=== PATIENT | female | born 1965 | race Caucasian/White ===

== ENCOUNTER 2018-02-13 20:21 | Observation (INO) | payer SELFPAY ==
[2018-02-13] MEDS ORDERED: NA CHLORIDE 0.9% 500 ML ONE (21:37)
[2018-02-13] MEDS ORDERED: METHYLPREDNISOLONE 125 MG INJ ONE (21:37)
[2018-02-13] MEDS ORDERED: LEVALBUTEROL 1.25 MG/3 ML NEB ONE ×2 (21:37→23:52)
[2018-02-13] MEDS ORDERED: MAGNESIUM SULFATE 1 gm IVPB 1 GM/100 ML BAG IV ONE (21:38)
[2018-02-13] MEDS ORDERED: CEFTRIAXONE/SWI 1gm 1 GM/10 ML SYR ONE (21:38)
[2018-02-13] MEDS ORDERED: ONDANSETRON 4 MG/2 ML VIAL ONE (22:09)
--- NOTE | 2018-02-13 23:36 | ER ---
Nurse's Notes [facility] Name: Elizabeth Ny Age: 52 yrs Sex: Female : 1965 Arrival Date: 02/13/2018 Time: 20:26 Bed 17 Private MD: Diagnosis: COPD Exacerbation Presentation: 02/13 20:26 Presenting complaint: EMS states: "pt reported history of COPD, on arrival the pt was jd3 noticeably short of breath and audibly wheezing. She had given herself an albuterol treatment before we got there, but she was still at 84-85 on room air.". Transition of care: patient was not received from another setting of care. Onset of symptoms was February 13, 2018. Initial Sepsis Screen: Does the patient meet any 2 criteria? RR > 20 per min. HR > 90 bpm. Yes Does the patient have a suspected source of infection? No. Patient's initial sepsis screen is negative. Care prior to arrival: None. 20:26 Method Of Arrival: EMS: [facility] jd3 20:26 Acuity: CAROLYN 3 jd3 [employer]: 20:32 LMP N/A - Post-menopause jd3 Historical: - Allergies: 20:32 Codeine; jd3 - Home Meds: 20:32 ProAir HFA 90 mcg/actuation inhalation HFAA 1 puff as needed [Active]; Albuterol jd3 Nebulizer [Active]; Albuterol Inhl [Active]; - PMHx: 20:32 COPD; jd3 - PSHx: 20:32 Tubal ligation; jd3 - Immunization history:: Adult Immunizations up to date. - Social history:: Smoking status: Patient/guardian denies using tobacco, the patient reports quitting approximately 1 years ago. Screenin:36 Abuse screen: Denies threats or abuse. Nutritional screening: No deficits noted. jd3 Tuberculosis screening: No symptoms or risk factors identified. Fall Risk Gait- Normal/Bed Rest/Wheelchair (0 pts) Mental Status- Oriented to own ability (0 pts). Total Culver Fall Scale indicates No Risk (0-24 pts). Assessment: 20:34 General: Appears uncomfortable, Behavior is calm, cooperative, appropriate for age. jd3 Pain: Denies pain. Neuro: Level of Consciousness is awake, alert, obeys commands, Oriented to person, place, time, situation. Cardiovascular: Heart tones S1 S2 present Capillary refill < 3 seconds Patient's skin is warm and dry. Respiratory: Airway is patent Respiratory effort is labored, Respiratory pattern is tachypnea Breath sounds with wheezes bilaterally. GI: Abdomen is round Bowel sounds present X 4 quads. Abd is soft and non tender X 4 quads. Patient currently denies diarrhea, nausea, vomiting. : No signs and/or symptoms were reported regarding the genitourinary system. EENT: No signs and/or symptoms were reported regarding the EENT system. Derm: Skin is intact, Skin is dry, Skin is normal, Skin temperature is warm. Musculoskeletal: Circulation, motion, and sensation intact. Range of motion: intact in all extremities. 22:06 Reassessment: Patient appears in no apparent distress at this time. Patient and/or jd3 family updated on plan of care and expected duration. Pain level reassessed. Patient is alert, oriented x 3, equal unlabored respirations, skin warm/dry/pink. 22:54 Reassessment: Patient appears in no apparent distress at this time. Patient and/or jd3 family updated on plan of care and expected duration. Pain level reassessed. Patient is alert, oriented x 3, equal unlabored respirations, skin warm/dry/pink. Patient states symptoms have improved. 02/14 00:53 Reassessment: Patient appears in no apparent distress at this time. Patient and/or jd3 family updated on plan of care and expected duration. Pain level reassessed. Patient is alert, oriented x 3, equal unlabored respirations, skin warm/dry/pink. 01:56 Reassessment: Patient appears in no apparent distress at this time. Patient and/or jd3 family updated on plan of care and expected duration. Pain level reassessed. Patient is alert, oriented x 3, equal unlabored respirations, skin warm/dry/pink. pt reported understanding of need for admission. Vital Signs: 02/13 20:32 BP 110 / 82; Pulse 106; Resp 22 S; Temp 99.1(O); Pulse Ox 92% on 4 lpm NC; Weight 77.11 jd3 kg (R); Height 5 ft. 3 in. (160.02 cm) (R); Pain 0/10; 22:04 BP 133 / 80; Pulse 104; Resp 20 S; Pulse Ox 100% on Nebulizer Mask; jd3 22:54 BP 128 / 71; Pulse 108; Resp 19 S; Pulse Ox 92% on 4 lpm NC; jd3 02/14 00:53 BP 100 / 68; Pulse 100; Resp 19 S; Pulse Ox 95% on 4 lpm NC; Pain 0/10; jd3 02/13 20:32 Body Mass Index 30.11 (77.11 kg, 160.02 cm) jd3 ED Course: 02/13 20:26 Patient arrived in ED. jd3 20:30 Triage completed. jd3 20:34 Arm band placed on. jd3 20:37 Patient has correct armband on for positive identification. Bed in low position. Call jd3 light in reach. Side rails up X2. Adult w/ patient. 20:56 Dean Lobato MD is Attending Physician. kdr 21:21 Gerry Grayson RN is Primary Nurse. jd3 21:42 X-ray completed. Portable x-ray completed in exam room. Patient tolerated procedure kc2 well. 21:43 CXR XRAY In Process Unspecified. EDMS 23:15 Inserted saline lock: 20 gauge in left antecubital area, using aseptic technique. Blood jd3 collected. placed by Naina CASAREZ. 23:35 Carlos Gaona MD is Hospitalizing Provider. kdr 02/14 01:55 No provider procedures requiring assistance completed. Patient admitted, IV remains in jd3 place. Administered Medications: 02/13 22:06 Drug: NS 0.9% 500 ml Route: IV; Rate: bolus; Site: left antecubital; jd3 02/14 00:25 Follow up: Response: No adverse reaction; IV Status: Completed infusion; IV Intake: jd3 500ml 02/13 22:06 Drug: Rocephin - (cefTRIAXone) 1 grams Route: IVPB; Infused Over: 30 mins; Site: left jd3 antecubital; 02/14 00:25 Follow up: Response: No adverse reaction; IV Status: Completed infusion jd3 02/13 22:07 Drug: Xopenex (3) 1.25 mg Route: Inhalation; jd3 02/14 00:26 Follow up: Response: No adverse reaction jd3 02/13 22:07 Drug: Magnesium Sulfate 1 grams Route: IVPB; Infused Over: 1 hrs; Site: left jd3 antecubital; 02/14 00:26 Follow up: Response: No adverse reaction; IV Status: Completed infusion jd3 02/13 22:08 Drug: SOLU-Medrol 125 mg Route: IVP; Site: left antecubital; jd3 02/14 00:25 Follow up: Response: No adverse reaction jd3 02/13 22:11 Drug: Zofran 4 mg Route: IVP; Site: left antecubital; rk2 02/14 00:25 Follow up: Response: No adverse reaction jd3 00:05 Drug: Xopenex (3) 1.25 mg Route: Inhalation; jd3 01:12 Follow up: Response: No adverse reaction jd3 Intake: 00:25 IV: 500ml; Total: 500ml. jd3 Outcome: 02/13 23:36 Decision to Hospitalize by Provider. kdr 02/14 01:57 Admitted to Med/surg accompanied by tech, family with patient, via wheelchair, room jd3 406, with oxygen, with chart, Report called to Juan CASAREZ Condition: stable Instructed on the need for admit, Demonstrated understanding of instructions. 01:58 Patient left the ED. jd3 Signatures: Dispatcher [employer] EDMS Dean Lobato MD MD kdr Carr, Kelsie kc2 Davies, Jonathon, RN RN jSherron Davila RN RN rk2
--- NOTE | 2018-02-13 23:36 | EDPHYS ---
Physician Documentation [facility] Name: Elizabeth Ny Age: 52 yrs Sex: Female : 1965 Arrival Date: 02/13/2018 Time: 20:26 Bed 17 Private MD: ED Physician Dean Lobato HPI: 02/13 21:21 This 52 yrs old Female presents to ER via EMS with complaints of SOB, COPD kdr exacerbation. 21:21 The patient has shortness of breath at rest, with light activity. Onset: The kdr symptoms/episode began/occurred gradually, 2 week(s) ago, The patient has been feeling ill for two weeks, no recent fever. Today she became worse and called EMS. Duration: The symptoms are continuous, and are steadily getting worse. The patient's shortness of breath is aggravated by coughing, exertion, light activity. Associated signs and symptoms: Pertinent positives: chest pain, Right chest when she coughs. Severity of symptoms: At their worst the symptoms were mild moderate just prior to arrival, in the emergency department the symptoms are unchanged. The patient has experienced similar episodes in the past, a few times. The patient has not recently seen a physician. TYPE CASTER: 20:32 LMP N/A - Post-menopause jd3 Historical: - Allergies: 20:32 Codeine; jd3 - Home Meds: 20:32 ProAir HFA 90 mcg/actuation inhalation HFAA 1 puff as needed [Active]; Albuterol jd3 Nebulizer [Active]; Albuterol Inhl [Active]; - PMHx: 20:32 COPD; jd3 - PSHx: 20:32 Tubal ligation; jd3 - Immunization history:: Adult Immunizations up to date. - Social history:: Smoking status: Patient/guardian denies using tobacco, the patient reports quitting approximately 1 years ago. ROS: 21:21 Constitutional: Negative for fever, chills, and weight loss, Eyes: Negative for injury, kdr pain, redness, and discharge, Neck: Negative for injury, pain, and swelling, Cardiovascular: Negative for chest pain, palpitations, and edema, Abdomen/GI: Negative for abdominal pain, nausea, vomiting, diarrhea, and constipation, Back: Negative for injury and pain, : Negative for injury, bleeding, discharge, and swelling, MS/Extremity: Negative for injury and deformity, Skin: Negative for injury, rash, and discoloration, Neuro: Negative for headache, weakness, numbness, tingling, and seizure activity. Psych: Negative for depression, anxiety, suicide ideation, homicidal ideation, and hallucinations, Allergy/Immunology: Negative for hives, rash, and allergies, Endocrine: Negative for neck swelling, polydipsia, polyuria, polyphagia, and marked weight changes, Hematologic/Lymphatic: Negative for swollen nodes, abnormal bleeding, and unusual bruising. 21:21 Respiratory: Positive for cough, with no reported sputum, dyspnea on exertion, shortness of breath, wheezing, Negative for hemoptysis. Exam: 21:21 Constitutional: This is a well developed, well nourished patient who is awake, alert, kdr and in mild distress. Head/Face: Normocephalic, atraumatic. Eyes: Pupils equal round and reactive to light, extra-ocular motions intact. Lids and lashes normal. Conjunctiva and sclera are non-icteric and not injected. Cornea within normal limits. Periorbital areas with no swelling, redness, or edema. Neck: Trachea midline, no thyromegaly or masses palpated, and no cervical lymphadenopathy. Supple, full range of motion without nuchal rigidity, or vertebral point tenderness. No Meningismus. Chest/axilla: Normal chest wall appearance and motion. Nontender with no deformity. No lesions are appreciated. Cardiovascular: Regular rate and rhythm with a normal S1 and S2. No gallops, murmurs, or rubs. Normal PMI, no JVD. No pulse deficits. Abdomen/GI: Soft, non-tender, with normal bowel sounds. No distension or tympany. No guarding or rebound. No evidence of tenderness throughout. Back: No spinal tenderness. No costovertebral tenderness. Full range of motion. Skin: Warm, dry with normal turgor. Normal color with no rashes, no lesions, and no evidence of cellulitis. MS/ Extremity: Pulses equal, no cyanosis. Neurovascular intact. Full, normal range of motion. Neuro: Awake and alert, GCS 15, oriented to person, place, time, and situation. Cranial nerves II-XII grossly intact. Motor strength 5/5 in all extremities. Sensory grossly intact. Cerebellar exam normal. Normal gait. Psych: Awake, alert, with orientation to person, place and time. Behavior, mood, and affect are within normal limits. 21:21 Respiratory: moderate respiratory distress is noted, Respirations: labored breathing, that is mild, that is moderate, grunting, that is mild, prolonged exhalation, shallow respirations, tachypnea, that is mild, Breath sounds: decreased breath sounds, are heard in the left posterior upper lobe and left posterior lower lobe, wheezing: that is mild, is heard in the right posterior upper lobe, right posterior middle lobe and right posterior lower lobe. Vital Signs: 20:32 BP 110 / 82; Pulse 106; Resp 22 S; Temp 99.1(O); Pulse Ox 92% on 4 lpm NC; Weight 77.11 jd3 kg (R); Height 5 ft. 3 in. (160.02 cm) (R); Pain 0/10; 22:04 BP 133 / 80; Pulse 104; Resp 20 S; Pulse Ox 100% on Nebulizer Mask; jd3 22:54 BP 128 / 71; Pulse 108; Resp 19 S; Pulse Ox 92% on 4 lpm NC; jd3 02/14 00:53 BP 100 / 68; Pulse 100; Resp 19 S; Pulse Ox 95% on 4 lpm NC; Pain 0/10; jd3 02/13 20:32 Body Mass Index 30.11 (77.11 kg, 160.02 cm) jd3 MDM: 02/13 23:36 Patient medically screened. kdr 23:36 Data reviewed: vital signs, nurses notes, lab test result(s), EKG, radiologic studies. kdr Counseling: I had a detailed discussion with the patient and/or guardian regarding: the historical points, exam findings, and any diagnostic results supporting the discharge/admit diagnosis, lab results, radiology results, the need for further work-up and treatment in the hospital. 02/13 21:20 Order name: Blood Culture Adult (2) kdr 02/13 23:35 Order name: Troponin (emerg Dept Use Only) kdr 02/13 21:20 Order name: CXR XRAY kdr 02/13 23:35 Order name: CBC with Diff kdr 02/13 23:35 Order name: Chem 7 kdr Administered Medications: 22:06 Drug: NS 0.9% 500 ml Route: IV; Rate: bolus; Site: left antecubital; jd3 02/14 00:25 Follow up: Response: No adverse reaction; IV Status: Completed infusion; IV Intake: jd3 500ml 02/13 22:06 Drug: Rocephin - (cefTRIAXone) 1 grams Route: IVPB; Infused Over: 30 mins; Site: left [facility] antecubital; 02/14 00:25 Follow up: Response: No adverse reaction; IV Status: Completed infusion jd3 02/13 22:07 Drug: Xopenex (3) 1.25 mg Route: Inhalation; jd3 02/14 00:26 Follow up: Response: No adverse reaction jd3 02/13 22:07 Drug: Magnesium Sulfate 1 grams Route: IVPB; Infused Over: 1 hrs; Site: left [facility] antecubital; 02/14 00:26 Follow up: Response: No adverse reaction; IV Status: Completed infusion jd3 02/13 22:08 Drug: SOLU-Medrol 125 mg Route: IVP; Site: left antecubital; jd3 02/14 00:25 Follow up: Response: No adverse reaction [facility] 02/13 22:11 Drug: Zofran 4 mg Route: IVP; Site: left antecubital; rk2 02/14 00:25 Follow up: Response: No adverse reaction jd3 00:05 Drug: Xopenex (3) 1.25 mg Route: Inhalation; jd3 01:12 Follow up: Response: No adverse reaction jd3 Disposition: 02/13/18 23:36 Hospitalization ordered by Carlos Gaona for Inpatient Admission. Preliminary diagnosis is COPD Exacerbation. - Bed requested for Telemetry/MedSurg (Inpatient). - Status is Inpatient Admission. jd3 - Condition is Fair. - Problem is an acute exacerbation. - Symptoms have improved. UTI on Admission? No Signatures: Dispatcher [employer] Nona Zamora RN RN kl Rittger, Kevin, MD MD kdr Davies, Jonathon, RN RN jd3 Kidder, Rhonda, RN RN rk2
[2018-02-14] MEDS ORDERED: MORPHINE 2 MG/ML SYR IV PRN (00:12)
[2018-02-14] MEDS ORDERED: ONDANSETRON 4 MG/2 ML VIAL IV PRN (00:12)
[2018-02-14] MEDS ORDERED: ACETAMINOPHEN 500 MG TAB PO PRN (00:12)
[2018-02-14 00:21] LABS: Absolute Lymphocytes (CBC) 0.7 K/uL (0.7-4.9); Absolute Monocytes 0.3 K/uL (0.1-1.3); Absolute Neutrophil 8.8 K/uL (1.8-8.0); Basophils % 0.3 % (0-1.3); Eosinophils % 2.6 % (0-4.4); Hematocrit 37.1 % (36.0-45.0); Lymphocytes % 7.4 % (15.3-44.8); MCH 34.2 pg (27.0-35.0); MCV 98.3 fL (80-100); MPV 8.1 fL (7.6-11.3); Monocytes % 2.6 % (3.3-12.3); RBC Red Blood Cell Count 3.77 M/uL (3.86-4.86)
[2018-02-14 00:31] LABS: Bicarbonate 26 mEq/L (21-31); Glucose Level 159 mg/dL (65-120); Potassium 3.7 mEq/L (3.6-5.0); Sodium Level 134 mEq/L (135-145)
[2018-02-14 00:37] LABS: BUN Blood Urea Nitrogen < 5 mg/dL (6-20)
[2018-02-14] MEDS: NA CHLORIDE 0.9% 1,000 ML IV SCH ×2 (01:00→02:29)
[2018-02-14] MEDS: IPRATROPIUM BROM 0.5MG/2.5ML NEB SCH ×2 (01:49→07:30)
[2018-02-14] MEDS: ALBUTEROL 2.5 MG/3 ML NEB SOL NEB SCH ×2 (01:49→07:30)
[2018-02-14 02:15] VITALS: BMI 30.2
[2018-02-14 02:20] LABS: Blood Morphology Comment NOT SEEN (NOT SEEN); Platelet Estimate ADEQ; Urine White Blood Cell Casts OK
[2018-02-14 04:59] LABS: Absolute Lymphocytes (CBC) 0.4 K/uL (0.7-4.9); Absolute Monocytes 0.1 K/uL (0.1-1.3); Absolute Neutrophil 8.3 K/uL (1.8-8.0); Basophils % 0.4 % (0-1.3); Eosinophils % 0.2 % (0-4.4); Hematocrit 35.3 % (36.0-45.0); Lymphocytes % 4.1 % (15.3-44.8); MCH 33.8 pg (27.0-35.0); MCV 100.3 fL (80-100); MPV 9.1 fL (7.6-11.3); Monocytes % 0.6 % (3.3-12.3); RBC Red Blood Cell Count 3.52 M/uL (3.86-4.86)
[2018-02-14 05:00] LABS: Urine Appearance CLEAR; Urine Bilirubin NEGATIVE (NEG); Urine Blood NEGATIVE (NEG); Urine Color YELLOW; Urine Glucose NEGATIVE (NEG); Urine Protein NEGATIVE (NEG); Urine Urobilinogen 0.2 mg/dL (0.2-1.0)
[2018-02-14 05:06] LABS: ALT/SGPT 13 IU/L (10-60); AST/SGOT 26 IU/L (10-42); Albumin 3.6 g/dL (3.2-5.5); Alkaline Phosphatase 73 IU/L (42-121); Bicarbonate 25 mEq/L (21-31); Bilirubin Total 0.2 mg/dL (0.3-1.2); Glucose Level 269 mg/dL (65-120); Potassium 3.8 mEq/L (3.6-5.0); Protein, Total 7.1 g/dL (6.0-8.3); Sodium Level 135 mEq/L (135-145)
[2018-02-14 05:15] LABS: BUN Blood Urea Nitrogen < 5 mg/dL (6-20)
[2018-02-14 05:16] LABS: Urine Microscopic Reflex NO UMIC
[2018-02-14] MEDS ORDERED: BENZONATATE 100 MG CAP PO PRN (06:22)
--- NOTE | 2018-02-14 06:35 | RAD REPORT ---
EXAM DESCRIPTION: RAD - Chest Single View - 02/13/2018 9:43 pm CLINICAL HISTORY: COPD, shortness of breath COMPARISON: December 18 TECHNIQUE: AP portable chest image was obtained 2138 hours . FINDINGS: No mass, consolidation or failure finding seen. Lung markings are similar comparison. Hear t and vasculature are normal. No measurable pleural effusion and no pneumothorax. No gross bony abnor mality seen. No acute aortic findings suspected. IMPRESSION: No acute cardiopulmonary process. No significant interval change.
[2018-02-14] MEDS ORDERED: METHYLPREDNISOLONE 125 MG INJ IV SCH (06:45)
--- NOTE | 2018-02-14 06:47 | P.HP ---
Certification for Inpatient Patient admitted to: Observation With expected LOS: <2 Midnights Patient will require the following post-hospital care: None Practitioner: I am a practitioner with admitting privileges, knowledge of patient current condition, hospital course, and medical plan of care. Services: Services provided to patient in accordance with Admission requirements found in Title 42 Section 412.3 of the Code of Federal Regulations Patient History Date of Service: 02/14/18 Reason for admission: COPD exacerbation History of Present Illness: Patient is a 52-year-old female came into the hospital with difficulty breathing. Patient had a court appointed date for a disability hearing. Patient has had difficulty breathing for the last couple weeks. She has been taking nebulizer treatments but not really improving. She has gone to the disability hearing and afterwards got really short of breath. She was not improving so EMS was called. She was brought into the emergency room for further evaluation. In the ER patient was given nebs and steroids along with some antibiotics. However, her chest x-ray does not show any abnormality. At this time patient will be admitted to the hospital for observation for nebs and steroid treatment. Hopefully, her respiratory status continues to improve and she will be able to discharge home in the morning. Allergies codeine [Codeine] Adverse Reaction (Mild, Verified 10/14/16 05:31) Hives/Rash Home Medications: Acetaminophen [Tylenol Extra Strength] 1,000 mg PO DAILY 07/24/17 Albuterol Sulfate [Proair Hfa] 8.5 gm IH Q6HR PRN 02/14/18 Fluticasone/Salmeterol [Fluticasone-Salmeterol 113-14] 1 puff IH BID 02/14/18 - Past Medical/Surgical History Diabetic: No -: COPD -: Alcohol abuse -: Former tobacco abuse -: Tubal ligation -: left leg currently broken Psychosocial/ Personal History: She is , she has 2 children. She does not work. - Family History Mother Medical History: Other (see notes) Notes: No health problems at this time. Father Medical History: Stroke, Cancer Notes: bone cancer - Social History Smoking Status: Former smoker Alcohol use: Yes CD- Drugs: No Caffeine use: Yes Place of Residence: Home Review of Systems 10-point ROS is otherwise unremarkable Physical Examination - Vital Signs Temperature: 98 F Blood Pressure: 103/61 Pulse: 90 Respirations: 18 Pulse Ox (%): 97 - Physical Exam General: Alert, In no apparent distress, Oriented x3 HEENT: Atraumatic, PERRLA, Mucous membr. moist/pink, EOMI, Sclerae nonicteric Neck: Supple, 2+ carotid pulse no bruit, No LAD, Without JVD or thyroid abnormality Respiratory: Clear to auscultation bilaterally, Normal air movement Cardiovascular: Regular rate/rhythm, Normal S1 S2, No murmurs Gastrointestinal: Normal bowel sounds, Soft and benign, Non-distended, No tenderness Musculoskeletal: No clubbing, No swelling, No tenderness Integumentary: No rashes Neurological: Normal gait, Normal speech, Normal strength at 5/5 x4 extr, Normal tone, Sensation intact, Cranial nerves 3-12 intact, Normal affect Lymphatics: No axilla or inguinal lymphadenopathy Assessment & Plan - Problems (Diagnosis) (1) Acute exacerbation of chronic obstructive pulmonary disease (COPD) Current Visit: No Status: Acute (2) Dyspnea Onset Date: 03/23/16 Current Visit: No Status: Acute Qualifiers: (3) SOB (shortness of breath) Onset Date: 10/14/16 Current Visit: No Status: Acute - Plan Plan: 1. Albuterol and Atrovent nebs 2. IV steroids 3. Check room air O2 sats 4. Pulmonary consultation 5. GI and DVT prophylaxis Discharge Plan: Home Plan to discharge in: 24 Hours - Advance Directives Does patient have a Living Will: No Does patient have a Durable POA for Healthcare: No - Code Status/Comfort Care Code Status Assessed: Yes Code Status: Full Code Critical Care: No Time Spent Managing PTS Care (In Minutes): 50
[2018-02-14] MEDS ORDERED: Morphine 2 MG/2 ML SYR IV PRN (07:41)
--- NOTE | 2018-02-14 08:21 | P.CNS ---
Date of Consult: 02/14/18 Reason for Consult: COPD exacerbation Chief Complaint: COPD exacerbation History of Present Illness: Patient is 52 years of age well known to me with a history of COPD admitted with worsening dyspnea cough for the past 2 weeks he had been a lot of stress recently some nonproductive cough she is feeling better patient is compliant with it inhalers at home wants to go home denies any fever chills or chest pain Allergies codeine [Codeine] Adverse Reaction (Mild, Verified 10/14/16 05:31) Hives/Rash Home Medications: Acetaminophen [Tylenol Extra Strength] 1,000 mg PO DAILY 07/24/17 Albuterol Sulfate [Proair Hfa] 8.5 gm IH Q6HR PRN 02/14/18 Fluticasone/Salmeterol [Fluticasone-Salmeterol 113-14] 1 puff IH BID 02/14/18 - Past Medical/Surgical History Diabetic: No -: COPD -: Alcohol abuse -: Former tobacco abuse -: Tubal ligation -: left leg currently broken Psychosocial/ Personal History: She is , she has 2 children. She does not work. - Family History Mother Medical History: Other (see notes) Notes: No health problems at this time. Father Medical History: Stroke, Cancer Notes: bone cancer - Social History Smoking Status: Former smoker Alcohol use: Yes CD- Drugs: No Caffeine use: Yes Place of Residence: Home Review of Systems 10-point ROS is otherwise unremarkable Physical Examination Temp Pulse Resp BP Pulse Ox 98 F 90 18 103/61 97 02/14/18 06:46 02/14/18 06:46 02/14/18 06:46 02/14/18 06:46 02/14/18 06:46 General: Alert, Oriented x3 Neck: Supple Respiratory: Expiratory wheezes Cardiovascular: No edema, Normal S1 S2 - Problems (1) COPD exacerbation Onset Date: 10/14/16 Current Visit: No Status: Acute Plan: Patient is 52 years of age admitted with a 2 week history of progressive dyspnea cough he has an exacerbation of COPD chest x-ray is clear chemistries unremarkable patient is doing better will check room air pulse ox patient to be discharged home with her regular inhalers at some prednisone 10 mg twice a day for 10 days and consider antibiotic follow up with me in 2 weeks
[2018-02-14 09:53] VITALS: BP 104/56; TEMP 97.6
[2018-02-14 10:18] VITALS: O2SAT 100
== END 2018-02-14 10:28 | disposition home or self-care (01) ==
LOC: ER 20:21 → INTOOBSV 23:40 → ERHOLD 23:40 → 4TH 02-14 01:43
PROVIDERS: ADMIT Hospitalist; ATTEND Hospitalist
DX: J44.1 Chronic obstructive pulmonary disease with (acute) exacerbation (principal); Z87.891 Personal history of nicotine dependence
CPT/HCPCS: 36415; 71045; 80048; 80053; 81003; 84484; 85025; 87040; 96365; 96375; 99285; G0378; J0696; J2270; J2405; J2930; J3475; J7030

== ENCOUNTER 2018-03-09 13:49 | Inpatient (IN) | payer SELFPAY ==
[2018-03-09] MEDS ORDERED: IPRATROPIUM BROM 0.5MG/2.5ML ONE (14:31)
[2018-03-09] MEDS ORDERED: LEVALBUTEROL 1.25 MG/3 ML NEB ONE (14:32)
[2018-03-09 14:35] LABS: Absolute Monocytes 0.7 K/uL (0.1-1.3); Absolute Neutrophil 6.3 K/uL (1.8-8.0); Basophils % 0.7 % (0-1.3); Eosinophils % 7.4 % (0-4.4); Hematocrit 39.8 % (36.0-45.0); Lymphocytes % 20.9 % (15.3-44.8); MCH 33.9 pg (27.0-35.0); MCV 100.3 fL (80-100); MPV 8.9 fL (7.6-11.3); RBC Red Blood Cell Count 3.97 M/uL (3.86-4.86)
[2018-03-09] MEDS ORDERED: METHYLPREDNISOLONE 125 MG INJ ONE (14:53)
--- NOTE | 2018-03-09 15:31 | RAD REPORT ---
EXAM DESCRIPTION: RAD - Chest Single View - 03/09/2018 2:31 pm CLINICAL HISTORY: COPD, cough, dyspnea COMPARISON: January 2018 TECHNIQUE: AP portable chest image was obtained 1422 hours . FINDINGS: Lungs are clear. Heart and vasculature are normal. No measurable pleural effusion and no p neumothorax. No gross bony abnormality seen. No acute aortic findings suspected. IMPRESSION: No acute cardiopulmonary process. No significant change from the comparison.
[2018-03-09 16:09] LABS: Protime INR 0.93
[2018-03-09 16:19] LABS: BUN Blood Urea Nitrogen 5 mg/dL (6-20); Bicarbonate 25 mEq/L (21-31); Glucose Level 128 mg/dL (65-120); Magnesium 1.8 mg/dL (1.8-2.5); Potassium 3.2 mEq/L (3.6-5.0); Sodium Level 131 mEq/L (135-145)
--- NOTE | 2018-03-09 16:20 | EKG ---
Test Date: 2018-03-09 Test Time: 14:04:53 [place] [employer]: MIGUEL MEASUREMENT RESULTS: Intervals: Rate: 105 DE: 122 QRSD: 78 QT: 324 QTc: 428 [place]: P: 80 DE: 122 QRS: 85 T: 45 INTERPRETIVE STATEMENTS: Sinus tachycardia Otherwise normal ECG Compared to ECG 12/18/2017 20:06:08 Sinus rhythm no longer present Sinus arrhythmia no longer present Electronically Signed On 03-09-18 16:18:59 CDT by Danie Davis
[2018-03-09] MEDS ORDERED: NA CHLORIDE 0.9% 500 ML ONE (16:36)
--- NOTE | 2018-03-09 16:50 | RAD REPORT ---
EXAM DESCRIPTION: CT - Chest For Pe Angio - 03/09/2018 4:41 pm CLINICAL HISTORY: Shortness of breath for 3 days COMPARISON: July 2017 TECHNIQUE: Dynamically enhanced axial 3 mm thick images of the chest were obtained during administra tion of <100> mL Isovue 370 IV contrast. Coronal and oblique reconstruction images were generated and reviewed. Exam utilizes a protocol for optimal evaluation of pulmonary arterial tree. All CT scans are performed using dose optimization technique as appropriate and may include automated exposure control or mA/KV adjustment according to patient size. FINDINGS: The opacification of pulmonary arteries is somewhat suboptimal. A gross pulmonary embolus is not seen. A thoracic aortic aneurysm is not noted. A pleural effusion is not seen. A pericardial effusion is not seen. A few mild patchy ground-glass opacities are scattered within the lungs bilaterally IMPRESSION: No gross evidence for a pulmonary embolism. Mild bilateral ground-glass opacities within the lungs indicative of a mild alveolitis
--- NOTE | 2018-03-09 16:59 | EDPHYS ---
Physician Documentation [facility] Name: Elizabeth Ny Age: 52 yrs Sex: Female : 1965 Arrival Date: 03/09/2018 Time: 13:51 Bed 18 Private MD: ED Physician Madhu Heard HPI: 03/09 14:17 This 52 yrs old Female presents to ER via EMS with complaints of Breathing rn Difficulty. 14:17 The patient has shortness of breath at rest, with light activity. rn 14:19 Onset: The symptoms/episode began/occurred 3 day(s) ago. Duration: The symptoms are rn continuous. The patient's shortness of breath is aggravated by exertion, light activity, supine position, talking, walking. Associated signs and symptoms: Pertinent positives: productive cough, Pertinent negatives: fever, hemoptysis. Severity of symptoms: At their worst the symptoms were moderate in the emergency department the symptoms are unchanged. The patient has experienced similar episodes in the past. Reports sob for 3 days, + white sputum, no fever, + orthopnea, getting worse, not on home O2, 88% on RA at home per EMS. . MATERIAL SPECIALIST: 16:12 LMP N/A - Post-menopause em Historical: - Allergies: 13:56 Codeine; iw - Home Meds: 13:56 Albuterol Inhl [Active]; Albuterol Inhl [Active]; Flovent Inhl as needed [Active]; iw prednisone 10 mg Oral tab 1 tab once daily [Active]; ProAir HFA 90 mcg/actuation inhalation HFAA 1 puff as needed [Active]; - PMHx: 13:56 Bronchitis; COPD; iw - PSHx: 13:56 Tubal ligation; iw - Immunization history:: Adult Immunizations up to date. - Social history:: Smoking status: Patient/guardian denies using tobacco. - Family history:: not pertinent. - Hospitalizations: : No recent hospitalization is reported. ROS: 14:19 Constitutional: Negative for fever, chills, and weight loss, Eyes: Negative for injury, rn pain, redness, and discharge, Neck: Negative for injury, pain, and swelling, Cardiovascular: Negative for chest pain, palpitations, and edema, Respiratory: + cough and sob Abdomen/GI: Negative for abdominal pain, nausea, vomiting, diarrhea, and constipation, MS/Extremity: Negative for injury and deformity, Skin: Negative for injury, rash, and discoloration, Neuro: Negative for headache, weakness, numbness, tingling, and seizure. Exam: 14:19 Constitutional: This is a well developed, well nourished patient who is awake, alert, rn + moderate tachypnea, speaking 5 word sentences Head/Face: Normocephalic, atraumatic. Eyes: Pupils equal round and reactive to light, extra-ocular motions intact. Lids and lashes normal. Conjunctiva and sclera are non-icteric and not injected. Cornea within normal limits. Periorbital areas with no swelling, redness, or edema. ENT: dry MM Neck: Trachea midline, no thyromegaly or masses palpated, and no cervical lymphadenopathy. Supple, full range of motion without nuchal rigidity, or vertebral point tenderness. No Meningismus. Cardiovascular: tachycardic, regular, no murmur Respiratory: + moderate tachypnea, 5 word sentences, no major wheezing, no retractions, diminished at bases Abdomen/GI: Soft, non-tender, with normal bowel sounds. No distension or tympany. No guarding or rebound. No evidence of tenderness throughout. MS/ Extremity: Pulses equal, no cyanosis. Neurovascular intact. Full, normal range of motion. Equal circumference. Neuro: Awake and alert, GCS 15, oriented to person, place, time, and situation. Cranial nerves II-XII grossly intact. Motor strength 5/5 in all extremities. Sensory grossly intact. Vital Signs: 13:58 BP 91 / 71; Pulse 109; Resp 22; Temp 98.2; Pulse Ox 90% on R/A; Weight 74.84 kg; Height iw 5 ft. 3 in. (160.02 cm); Pain 6/10; 15:06 BP 116 / 75; Pulse 119; Resp 22; Pulse Ox 95% on 2 lpm NC; mh5 16:31 BP 122 / 75; Pulse 74; Resp 26; Pulse Ox 92% on 2 lpm NC; em 17:30 BP 125 / 76; Pulse 103; Resp 18; Pulse Ox 96% on 2 lpm NC; em 18:15 BP 119 / 72; Pulse 94; Resp 18; Pulse Ox 95% on 2 lpm NC; em 19:13 BP 128 / 75; Pulse 92; Resp 20; Pulse Ox 95% on 2 lpm NC; Pain 0/10; ea 20:13 BP 128 / 75; Pulse 96; Resp 18; Temp 97.9(O); Pulse Ox 97% on 3 lpm NC; Pain 0/10; bs1 13:58 Body Mass Index 29.23 (74.84 kg, 160.02 cm) iw MDM: 13:55 Patient medically screened. rn 16:57 Differential diagnosis: Chronic Obstructive Pulmonary Disease Myocardial Infarction rn pneumonia, Pneumothorax pulmonary edema, Pulmonary Embolism. Data reviewed: vital signs, nurses notes, lab test result(s), EKG, radiologic studies, CT scan, plain films, and as a result, I will admit patient. Counseling: I had a detailed discussion with the patient and/or guardian regarding: the historical points, exam findings, and any diagnostic results supporting the discharge/admit diagnosis, lab results, radiology results, the need for further work-up and treatment in the hospital. Response to treatment: the patient's symptoms have mildly improved after treatment, and as a result, I will admit patient. Admission orders: after a detailed discussion of the patient's condition and case, the admit orders are written by me. 03/09 13:56 Order name: Blood Culture Adult (2) 03/09 13:56 Order name: BMP; Complete Time: 16:20 03/09 13:56 Order name: BNP; Complete Time: 16:34 03/09 13:56 Order name: CBC with Diff; Complete Time: 15:03 03/09 13:56 Order name: Magnesium; Complete Time: 16:20 03/09 13:56 Order name: PT-INR; Complete Time: 16:20 03/09 13:56 Order name: XRAY CXR (1 view); Complete Time: 15:33 03/09 13:56 Order name: Ptt, Activated; Complete Time: 16:20 03/09 13:56 Order name: Troponin (emerg Dept Use Only); Complete Time: 16:34 03/09 13:56 Order name: Procalcitonin 03/09 16:21 Order name: CT Chest For PE Angio; Complete Time: 16:51 03/09 13:56 Order name: EKG; Complete Time: 13:57 03/09 13:56 Order name: Cardiac monitoring; Complete Time: 14:08 rn 03/09 13:56 Order name: EKG - Nurse/Tech; Complete Time: 14:08 rn 03/09 13:56 Order name: IV Saline Lock; Complete Time: 14: rn 03/09 13:56 Order name: Labs collected and sent; Complete Time: 14: rn 03/09 13:56 Order name: O2 Per Protocol; Complete Time: 14: rn 03/09 13:56 Order name: O2 Sat Monitoring; Complete Time: 14: rn 03/09 14:45 Order name: Labs - recollect needed; Complete Time: 16:13 bd Administered Medications: 14:37 Drug: Xopenex (3) 1.25 mg Route: Inhalation; iw 16:13 Follow up: Response: No adverse reaction em 14:37 Drug: AtroVENT Aerosol 0.5 mg Route: Inhalation; iw 16:14 Follow up: Response: No adverse reaction em 15:05 Drug: SOLU-Medrol 125 mg Route: IVP; Site: left antecubital; iw 16:29 Follow up: Response: No adverse reaction em 16:57 Drug: NS 0.9% 500 ml Route: IV; Rate: bolus; Site: left antecubital; em 19:04 Follow up: IV Status: Completed infusion; IV Intake: 500ml em Disposition: 18 16:59 Hospitalization ordered by Hung Box for Inpatient Admission. Preliminary diagnosis are Chronic obstructive pulmonary disease with (acute) exacerbation, Alveolitis, Hypoxemia. - Bed requested for Telemetry/MedSurg (Inpatient). - Status is Inpatient Admission. bs1 - Condition is Stable. - Problem is new. - Symptoms have improved. UTI on Admission? No Signatures: Dispatcher [employer] EDMS Patricia Guzman Edgar, MORTGAGE SERVICING SPECIALIST MORTGAGE SERVICING SPECIALIST em Michelle Meeks RN RN iw Madhu Heard MD MD rn Salazar, Brittany, RN RN bs1 Corrections: (The following items were deleted from the chart) 18:21 16:59 Hospitalization Ordered by Hung Box MD for Inpatient Admission. Preliminary bd diagnosis is Chronic obstructive pulmonary disease with (acute) exacerbation; Alveolitis; Hypoxemia. Bed requested for Telemetry/MedSurg (Inpatient). Status is Inpatient Admission. Condition is Stable. Problem is new. Symptoms have improved. UTI on Admission? No. rn 20:18 18:21 03/09/2018 16:59 Hospitalization Ordered by Hung Box MD for Inpatient bs1 Admission. Preliminary diagnosis is Chronic obstructive pulmonary disease with (acute) exacerbation; Alveolitis; Hypoxemia. Bed requested for Telemetry/MedSurg (Inpatient). Status is Inpatient Admission. Condition is Stable. Problem is new. Symptoms have improved. UTI on Admission? No. bd
--- NOTE | 2018-03-09 16:59 | ER ---
Nurse's Notes [facility] Name: Elizabeth Ny Age: 52 yrs Sex: Female : 1965 Arrival Date: 03/09/2018 Time: 13:51 Bed 18 Private MD: Diagnosis: Chronic obstructive pulmonary disease with (acute) exacerbation;Alveolitis;Hypoxemia Presentation: 03/09 13:53 Presenting complaint: EMS states: pt has hx of COPD, has had difficulty breathing X 3 iw days, was 88% on RA, up to 92% on 2 L NC. Transition of care: patient was not received from another setting of care. Onset of symptoms was March 06, 2018. Initial Sepsis Screen: Does the patient meet any 2 criteria?. Care prior to arrival: Glucose check: 102 Oxygen administered. via nasal cannula. 13:53 Method Of Arrival: EMS: [facility] iw 13:53 Acuity: CAROLYN 3 iw 16:11 Initial Sepsis Screen: Does the patient have a suspected source of infection?. em Triage Assessment: 16:12 General: Behavior is cooperative. Respiratory: Reports shortness of breath cough that em is Onset: The symptoms/episode began/occurred the patient has mild shortness of breath. SENIOR QA ENGINEER: 16:12 LMP N/A - Post-menopause em Historical: - Allergies: 13:56 Codeine; iw - Home Meds: 13:56 Albuterol Inhl [Active]; Albuterol Inhl [Active]; Flovent Inhl as needed [Active]; iw prednisone 10 mg Oral tab 1 tab once daily [Active]; ProAir HFA 90 mcg/actuation inhalation HFAA 1 puff as needed [Active]; - PMHx: 13:56 Bronchitis; COPD; iw - PSHx: 13:56 Tubal ligation; iw - Immunization history:: Adult Immunizations up to date. - Social history:: Smoking status: Patient/guardian denies using tobacco. - Family history:: not pertinent. - Hospitalizations: : No recent hospitalization is reported. Screenin:07 Abuse screen: Denies threats or abuse. Nutritional screening: No deficits noted. em Tuberculosis screening: No symptoms or risk factors identified. Fall Risk None identified. Assessment: 14:00 General: Appears in no apparent distress. Behavior is calm, cooperative. Pain: iw Complains of pain in chest. Neuro: Level of Consciousness is awake, alert, obeys commands, Oriented to person, place, time, situation. Cardiovascular: Reports chest pain, shortness of breath, Rhythm is regular. Respiratory: Airway is patent Respiratory effort is even, labored, Breath sounds are clear bilaterally. Derm: Skin is normal. Musculoskeletal: Range of motion: intact in all extremities. 14:37 General: Appears in no apparent distress. comfortable, Behavior is calm, cooperative. em Pain: Complains of pain in chest. Neuro: Level of Consciousness is awake, alert, obeys commands, Oriented to person, place, time, situation. Cardiovascular: Capillary refill < 3 seconds Patient's skin is warm and dry. Respiratory: Airway is patent Respiratory effort is even, labored, Breath sounds are clear bilaterally. GI: Abdomen is round. Derm: Skin is intact, Skin is pink, warm \T\ dry. 15:00 Reassessment: Patient appears in no apparent distress at this time. Patient and/or em family updated on plan of care and expected duration. Pain level reassessed. Patient is alert, oriented x 3, equal unlabored respirations, skin warm/dry/pink. 16:12 Reassessment: Patient appears in no apparent distress at this time. Patient and/or em family updated on plan of care and expected duration. Pain level reassessed. Patient is alert, oriented x 3, equal unlabored respirations, skin warm/dry/pink. Patient states symptoms have improved. 17:14 Reassessment: Patient appears in no apparent distress at this time. Patient and/or em family updated on plan of care and expected duration. Pain level reassessed. Patient is alert, oriented x 3, equal unlabored respirations, skin warm/dry/pink. 18:15 Reassessment: Patient appears in no apparent distress at this time. Patient and/or em family updated on plan of care and expected duration. Pain level reassessed. Patient is alert, oriented x 3, equal unlabored respirations, skin warm/dry/pink. pt request some water to drink. 20:12 Reassessment: Called report to Melissa on [address] Floor gave report, Informed of Admitting bs1 diagnosis of COPD exacerbation/Alveolitis. Patient currently on 3L NC, Aox3. Patient in no apparent distress. Vital Signs: 13:58 BP 91 / 71; Pulse 109; Resp 22; Temp 98.2; Pulse Ox 90% on R/A; Weight 74.84 kg; Height iw 5 ft. 3 in. (160.02 cm); Pain 6/10; 15:06 BP 116 / 75; Pulse 119; Resp 22; Pulse Ox 95% on 2 lpm NC; mh5 16:31 BP 122 / 75; Pulse 74; Resp 26; Pulse Ox 92% on 2 lpm NC; em 17:30 BP 125 / 76; Pulse 103; Resp 18; Pulse Ox 96% on 2 lpm NC; em 18:15 BP 119 / 72; Pulse 94; Resp 18; Pulse Ox 95% on 2 lpm NC; em 19:13 BP 128 / 75; Pulse 92; Resp 20; Pulse Ox 95% on 2 lpm NC; Pain 0/10; ea 20:13 BP 128 / 75; Pulse 96; Resp 18; Temp 97.9(O); Pulse Ox 97% on 3 lpm NC; Pain 0/10; bs1 13:58 Body Mass Index 29.23 (74.84 kg, 160.02 cm) iw ED Course: 13:51 Patient arrived in ED. iw 13:52 Ramesh Rangel NP is PHCP. pm1 13:52 Madhu Heard MD is Attending Physician. pm1 13:54 Triage completed. iw 14:07 Phil Cha LVN is Primary Nurse. em 14:15 Initial lab(s) drawn, by ak, sent to lab. First set of blood cultures drawn Second set mh5 of blood cultures drawn by me. 14:31 XRAY CXR (1 view) In Process Unspecified. EDMS 14:37 Inserted saline lock: 22 gauge in left antecubital area, using aseptic technique. Blood mh5 collected. 14:38 Patient has correct armband on for positive identification. Side rails up X 1. Warm mh5 blanket given. security monitor on. Pulse ox on. NIBP on. 16:11 No provider procedures requiring assistance completed. em 16:11 Arm band placed on. em 16:[address] nj 16:41 CT completed. Patient tolerated procedure well. Patient moved back from CT. nj 16:41 CT Chest For PE Angio In Process Unspecified. EDMS 16:58 Hung Box MD is Hospitalizing Provider. rn 19:24 Primary Nurse role handed off by Phil Cha LVN rg2 19:58 Nuvia Poe, RN is Primary Nurse. ea 20:17 Patient admitted, IV remains in place. intact. bs1 Administered Medications: 14:37 Drug: Xopenex (3) 1.25 mg Route: Inhalation; iw 16:13 Follow up: Response: No adverse reaction em 14:37 Drug: AtroVENT Aerosol 0.5 mg Route: Inhalation; iw 16:14 Follow up: Response: No adverse reaction em 15:05 Drug: SOLU-Medrol 125 mg Route: IVP; Site: left antecubital; iw 16:29 Follow up: Response: No adverse reaction em 16:57 Drug: NS 0.9% 500 ml Route: IV; Rate: bolus; Site: left antecubital; em 19:04 Follow up: IV Status: Completed infusion; IV Intake: 500ml em Intake: 19:04 IV: 500ml; Total: 500ml. em Outcome: 16:59 Decision to Hospitalize by Provider. rn 20:12 Admitted to Tele accompanied by tech, via wheelchair, room 429 with 3L NC, with oxygen, bs1 with chart, Report called to LEIDA Torres 20:12 Condition: stable 20:12 Instructed on the need for admit, Demonstrated understanding of instructions. bs1 20:18 Patient left the ED. bs1 Signatures: Dispatcher [employer] Cami Heredia rg2 Phil Cha, COMPOSITE TECHNICIAN COMPOSITE TECHNICIAN em Michelle Meeks RN RN iw Nieto, Roman, MD MD rn Marinas, Patrick, RINA PULMONARY FUNCTION TECHNICIAN pm1 Pasquale Lazar [facility] Nuvia Poe RN RN ea Salazar, Brittany, RN RN bs1 Corrections: (The following items were deleted from the chart) 19:04 17:30 BP 125 / 76; Pulse 103bpm; Resp 18bpm; Pulse Ox 96% 2 lpm; em em 19:04 18:15 BP 119 / 72; Pulse 94bpm; Resp 18bpm; Pulse Ox 95% RA; em em
[2018-03-09] MEDS ORDERED: ONDANSETRON 4 MG/2 ML VIAL IV PRN (17:40)
[2018-03-09] MEDS ORDERED: IPRATROPIUM BROM 0.5MG/2.5ML NEB PRN (17:40)
[2018-03-09] MEDS ORDERED: ACETAMINOPHEN 500 MG TAB PO PRN (17:40)
[2018-03-09] MEDS ORDERED: ALBUTEROL 2.5 MG/3 ML NEB SOL NEB PRN (17:40)
--- NOTE | 2018-03-09 19:48 | P.HP ---
Certification for Inpatient Patient admitted to: Inpatient With expected LOS: >2 Midnights Practitioner: I am a practitioner with admitting privileges, knowledge of patient current condition, hospital course, and medical plan of care. Services: Services provided to patient in accordance with Admission requirements found in Title 42 Section 412.3 of the Code of Federal Regulations Patient History Date of Service: 03/09/18 Reason for admission: COPD exacerbation History of Present Illness: Ms Ny is a 52 years old woman with history of COPD, followed up by Dr Brand, who start about 3 weeks ago with progressive SOB, associated with productive cough. She states that has had whitish secretions. She denied fever or chills. No chest pain, nausea or vomiting. The patient is a former smoker, she quit 2 years ago. At arrival, her O2 sat was 88% on RA, after oxygen support with 2L increase up to 92%. Allergies codeine [Codeine] Adverse Reaction (Mild, Verified 10/14/16 05:31) Hives/Rash Home Medications: Acetaminophen [Tylenol Extra Strength] 1,000 mg PO DAILY 07/24/17 Albuterol Sulfate [Proair Hfa] 8.5 gm IH Q6HR PRN 02/14/18 Azithromycin 250 mg PO DAILY #10 tablet 02/14/18 Fluticasone/Salmeterol [Fluticasone-Salmeterol 113-14] 1 puff IH BID 02/14/18 Prednisone [Deltasone*] 10 mg PO BID #20 tab 02/14/18 - Past Medical/Surgical History Diabetic: No -: COPD -: Alcohol abuse -: Former tobacco abuse -: Tubal ligation -: left leg currently broken Psychosocial/ Personal History: She is , she has 2 children. She does not work. - Family History Mother -: Other (see notes) Notes: No health problems at this time. Father -: Stroke, Cancer Notes: bone cancer - Social History Smoking Status: Former smoker Alcohol use: Yes CD- Drugs: No Caffeine use: Yes Place of Residence: Home Review of Systems 10-point ROS is otherwise unremarkable Physical Examination - Physical Exam General: Alert, In no apparent distress HEENT: Atraumatic, PERRLA, Mucous membr. moist/pink, EOMI, Sclerae nonicteric Neck: Supple, 2+ carotid pulse no bruit, No LAD, Without JVD or thyroid abnormality Respiratory: Clear to auscultation bilaterally, Diminished Cardiovascular: Regular rate/rhythm, Normal S1 S2 Gastrointestinal: Normal bowel sounds, No tenderness Musculoskeletal: No tenderness Integumentary: No rashes Neurological: Normal speech, Normal strength at 5/5 x4 extr, Normal tone, Normal affect Lymphatics: No axilla or inguinal lymphadenopathy - Studies Laboratory Data (last 24 hrs) 03/09/18 15:54: PT 11.0, INR 0.93, APTT 29.1 03/09/18 15:54: B-Natriuretic Peptide < 10 03/09/18 15:54: Sodium 131 L, Potassium 3.2 L, BUN 5 L, Creatinine 0.53, Glucose 128 H, Magnesium 1.8 03/09/18 14:00: WBC 9.8, Hgb 13.4, Hct 39.8, Plt Count 369 Assessment and Plan - Problems (Diagnosis) (1) COPD exacerbation Onset Date: 10/14/16 Current Visit: No Status: Acute (2) Hypoxia Onset Date: ~10/14/16 Current Visit: No Status: Acute (3) Former smoker Onset Date: 01/31/17 Current Visit: No Status: Chronic (4) Hyponatremia Current Visit: Yes Status: Acute - Plan The patient will be admitted to the hospital due to COPD exacerbation. Her WBC count are normal, no fever, CTA chest showed no PE, however, has signs of alveolitis. Lab work remarkable for mild hyponatremia and hypochloremia, likely due to volume depletion. Will order IV normal saline, Breathing treatments and IV steroids. Dr Brand consulted. - Advance Directives Does patient have a Living Will: No Does patient have a Durable POA for Healthcare: No - Code Status/Comfort Care Code Status Assessed: Yes Code Status: Full Code
[2018-03-09] MEDS: NA CHLORIDE 0.9% 1,000 ML IV SCH (21:22)
[2018-03-10 00:33] VITALS: BMI 29.2
[2018-03-10] MEDS: METHYLPREDNISOLONE 40 MG INJ IV SCH ×3 (01:29→16:54)
[2018-03-10 05:22] LABS: Absolute Lymphocytes (CBC) 0.8 K/uL (0.7-4.9); Absolute Monocytes 0.1 K/uL (0.1-1.3); Absolute Neutrophil 5.4 K/uL (1.8-8.0); Basophils % 0.3 % (0-1.3); Hematocrit 36.4 % (36.0-45.0); Lymphocytes % 12.9 % (15.3-44.8); MCH 34.2 pg (27.0-35.0); MCV 100.3 fL (80-100); MPV 8.5 fL (7.6-11.3); Monocytes % 1.6 % (3.3-12.3); RBC Red Blood Cell Count 3.63 M/uL (3.86-4.86)
[2018-03-10] MEDS: NA CHLORIDE 0.9% 1,000 ML IV SCH ×2 (05:40→15:49)
[2018-03-10 05:58] LABS: BUN Blood Urea Nitrogen 6 mg/dL (6-20); Bicarbonate 22 mEq/L (21-31); Glucose Level 172 mg/dL (65-120); Potassium 4.1 mEq/L (3.6-5.0); Sodium Level 134 mEq/L (135-145)
[2018-03-10 06:17] LABS: Platelet Estimate ADEQ
[2018-03-10 06:18] LABS: Blood Morphology Comment NOT SEEN (NOT SEEN); Platelets, Giant FEW
[2018-03-10] MEDS ORDERED: HOME MED 1 EA UNK (Fluticasone/Salmeterol [Fluticasone-Salmeterol 113-14] 1 PUFF) IH SCH (09:00)
[2018-03-10 11:57] VITALS: O2SAT 95
[2018-03-10 12:05] VITALS: TEMP 97.8
--- NOTE | 2018-03-10 14:41 | P.CNS ---
Date of Consult: 03/10/18 Reason for Consult: Shortness of breath Chief Complaint: COPD exacerbation History of Present Illness: Patient is 52 years of age with a history off COPD has been short of breath since last Tuesday progressively worse she is compliant with it inhalers has a slight cough no fever or chills complaining of dyspnea on mild exertion and was admitted to the hospital slightly better since admission Allergies codeine [Codeine] Adverse Reaction (Mild, Verified 10/14/16 05:31) Hives/Rash Home Medications: Albuterol Sulfate [Proair Hfa] 8.5 gm IH Q6HR PRN 02/14/18 Fluticasone/Salmeterol [Fluticasone-Salmeterol 113-14] 1 puff IH BID 02/14/18 Prednisone [Deltasone*] 10 mg PO BID #20 tab 02/14/18 Theophylline [Carter-Dur*] 200 mg PO DAILY 30 Days tab 03/10/18 - Past Medical/Surgical History Diabetic: No -: COPD -: Alcohol abuse -: Former tobacco abuse -: Tubal ligation -: left leg currently broken Psychosocial/ Personal History: She is , she has 2 children. She does not work. - Family History Mother Medical History: Other (see notes) Notes: No health problems at this time. Father Medical History: Stroke, Cancer Notes: bone cancer - Social History Smoking Status: Former smoker Alcohol use: Yes CD- Drugs: No Caffeine use: Yes Place of Residence: Home Review of Systems 10-point ROS is otherwise unremarkable Physical Examination Temp Pulse Resp BP Pulse Ox 97.8 F 84 16 117/58 L 95 03/10/18 12:00 03/10/18 12:00 03/10/18 12:00 03/10/18 12:00 03/10/18 12:00 General: Alert, Oriented x3 HEENT: Atraumatic Neck: Supple Respiratory: Clear to auscultation bilaterally Cardiovascular: No edema, Regular rate/rhythm Gastrointestinal: Normal bowel sounds, Soft and benign Musculoskeletal: No clubbing, No swelling Integumentary: No rashes, No breakdown Laboratory Data (last 24 hrs) 03/09/18 15:54: PT 11.0, INR 0.93, APTT 29.1 03/09/18 15:54: B-Natriuretic Peptide < 10 03/09/18 15:54: Sodium 131 L, Potassium 3.2 L, BUN 5 L, Creatinine 0.53, Glucose 128 H, Magnesium 1.8 03/09/18 14:00: WBC 9.8, Hgb 13.4, Hct 39.8, Plt Count 369 - Problems (1) COPD exacerbation Onset Date: 10/14/16 Current Visit: No Status: Acute Plan: Patient is 52 years of age admitted with COPD exacerbation there is no evidence of thromboembolism CT scan is clear nonspecific changes chemistries reviewed are unremarkable patient has a mild macrocytosis she does use a bronchodilator at home patient's saturation is satisfactory on room air vital signs stable patient is uninsured I suggest adding some carter stable to be discharged continue with prednisone 10 twice a day patient's BNP and procalcitonin are negative
--- NOTE | 2018-03-10 14:54 | P.SSS ---
Patient History Date of Service: 03/10/18 Primary Care Provider: None Reason for admission: COPD exacerbation History of Present Illness: Ms Ny is a 52 years old woman with history of COPD, followed up by Dr Brand, who start about 3 weeks ago with progressive SOB, associated with productive cough. She states that has had whitish secretions. She denied fever or chills. No chest pain, nausea or vomiting. The patient is a former smoker, she quit 2 years ago. At arrival, her O2 sat was 88% on RA, after oxygen support with 2L increase up to 92%. Allergies codeine [Codeine] Adverse Reaction (Mild, Verified 10/14/16 05:31) Hives/Rash Home Medications: Albuterol Sulfate [Proair Hfa] 8.5 gm IH Q6HR PRN 02/14/18 Fluticasone/Salmeterol [Fluticasone-Salmeterol 113-14] 1 puff IH BID 02/14/18 Prednisone [Deltasone*] 10 mg PO BID #20 tab 02/14/18 Theophylline [Carter-Dur*] 200 mg PO DAILY 30 Days tab 03/10/18 - Past Medical/Surgical History Has patient received pneumonia vaccine in the past: No Diabetic: No -: COPD -: Alcohol abuse -: Former tobacco abuse -: Tubal ligation -: left leg currently broken Psychosocial/ Personal History: She is , she has 2 children. She does not work. - Family History Mother -: Other (see notes) Notes: No health problems at this time. Father -: Stroke, Cancer Notes: bone cancer - Social History Smoking Status: Former smoker Alcohol use: Yes CD- Drugs: No Caffeine use: Yes Place of Residence: Home Review of Systems General: As per HPI Physical Examination - Vital Signs Temperature: 97.8 F Blood Pressure: 117/58 Pulse: 84 Respirations: 16 Pulse Ox (%): 95 - Physical Exam General: Alert, In no apparent distress HEENT: Atraumatic, PERRLA, Mucous membr. moist/pink, EOMI, Sclerae nonicteric Neck: Supple, 2+ carotid pulse no bruit, No LAD, Without JVD or thyroid abnormality Respiratory: Clear to auscultation bilaterally, Normal air movement Cardiovascular: Regular rate/rhythm, Normal S1 S2 Gastrointestinal: Normal bowel sounds, No tenderness Musculoskeletal: No tenderness Integumentary: No rashes Neurological: Normal gait, Normal speech, Normal strength at 5/5 x4 extr, Normal tone, Normal affect Lymphatics: No axilla or inguinal lymphadenopathy - Studies Laboratory Data (last 24 hrs) 03/09/18 15:54: PT 11.0, INR 0.93, APTT 29.1 03/09/18 15:54: B-Natriuretic Peptide < 10 03/09/18 15:54: Sodium 131 L, Potassium 3.2 L, BUN 5 L, Creatinine 0.53, Glucose 128 H, Magnesium 1.8 - Diagnosis (Problem(s)) (1) Acute exacerbation of chronic obstructive pulmonary disease (COPD) Onset Date: 02/14/18 Current Visit: No Status: Acute (2) SOB (shortness of breath) Onset Date: 10/14/16 Current Visit: No Status: Acute (3) Alcohol abuse Onset Date: 01/31/17 Current Visit: No Status: Chronic (4) Former smoker Onset Date: 01/31/17 Current Visit: No Status: Chronic (5) GERD (gastroesophageal reflux disease) Current Visit: No Status: Chronic Qualifiers: Esophagitis presence: esophagitis presence not specified Qualified Code(s) : K21.9 - Gastro-esophageal reflux disease without esophagitis Treatment Summary: Pt was admitted to the hospital for COPD exacerbation. Was started on Steriods, nebs and Oxygen. Pt was doing well after the treatment. Pulm was consulted who reccs Theophilline at this time. Pt was then discharged home under stable condition with ppx of steriod and theophilline. - Disposition Disposition: ROUTINE DISCHARGE Condition: GOOD Patient Discharge Instructions: Please f/u with Dr Crowley in 1 week post discharge. New medication. Theophilline Diet: Regular Activity: Ad herbert
[2018-03-10 15:54] VITALS: BP 119/67
== END 2018-03-10 16:48 | disposition home or self-care (01) | DRG 191 ==
LOC: ER 13:49 → ERHOLD 16:59 → 4TH 19:45
PROVIDERS: ADMIT Family Medicine; ATTEND Internal Medicine
DX: J44.1 Chronic obstructive pulmonary disease with (acute) exacerbation (principal); E87.1 Hypo-osmolality and hyponatremia; R09.02 Hypoxemia; K21.9 Gastro-esophageal reflux disease without esophagitis; F10.10 Alcohol abuse, uncomplicated; Z87.891 Personal history of nicotine dependence
CPT/HCPCS: 36415; 71045; 71275; 80048; 83735; 83880; 84145; 84484; 85025; 85610; 85730; 87040; 93005; 94760; 96361; 96374; 99285; J2920; J2930; J7030; Q9967

== ENCOUNTER 2018-05-21 05:23 | Observation (INO) | payer SELFPAY ==
[2018-05-21] MEDS ORDERED: IPRATROPIUM BROM 0.5MG/2.5ML ONE (05:37)
[2018-05-21] MEDS ORDERED: ALBUTEROL 2.5 MG/3 ML NEB SOL ONE (05:37)
--- NOTE | 2018-05-21 05:42 | EDPHYS ---
Physician Documentation [facility] Name: Elizabeth Ny Age: 52 yrs Sex: Female : 1965 Arrival Date: 05/21/2018 Time: 05:25 Bed 2 Private MD: ED Physician Jeyson Cobb HPI: 05/21 05:34 This 52 yrs old Female presents to ER via EMS with complaints of sob and helga hypoxia. 05:34 The patient has shortness of breath at rest, with light activity. Onset: The helga symptoms/episode began/occurred 2 day(s) ago. Duration: The symptoms are continuous, and are steadily getting worse. The patient's shortness of breath has no apparent modifying factors. Associated signs and symptoms: The patient has no apparent associated signs or symptoms. Severity of symptoms: At their worst the symptoms were moderate severe in the emergency department the symptoms are unchanged. The patient has experienced similar episodes in the past, a few times. 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 - Social history:: Smoking status: Patient/guardian denies using tobacco. - Ebola Screening: : Patient negative for fever greater than or equal to 101.5 degrees Fahrenheit, and additional compatible Ebola Virus Disease symptoms Patient denies exposure to infectious person Patient denies travel to an Ebola-affected area in the 21 days before illness onset. ROS: 05:36 Constitutional: Negative for fever, chills, and weight loss, Eyes: Negative for injury, helga pain, redness, and discharge, ENT: Negative for injury, pain, and discharge, Neck: Negative for injury, pain, and swelling, Cardiovascular: Negative for chest pain, palpitations, and edema, Abdomen/GI: Negative for abdominal pain, nausea, vomiting, diarrhea, and constipation, Back: Negative for injury and pain, : Negative for injury, bleeding, discharge, and swelling, MS/Extremity: Negative for injury and deformity, Skin: Negative for injury, rash, and discoloration, Neuro: Negative for headache, weakness, numbness, tingling, and seizure, Psych: Negative for depression, anxiety, suicide ideation, homicidal ideation, and hallucinations, Allergy/Immunology: Negative for hives, rash, and allergies, Endocrine: Negative for neck swelling, polydipsia, polyuria, polyphagia, and marked weight changes, Hematologic/Lymphatic: Negative for swollen nodes, abnormal bleeding, and unusual bruising. 05:36 Respiratory: Positive for cough, dyspnea on exertion, shortness of breath, wheezing, inspiratory, expiratory. 05:36 Abdomen/GI: Positive for abdominal distension. 05:36 : Negative for injury or acute deformity, urinary symptoms, urinary frequency, small amounts, pelvic pain. 05:36 MS/extremity: Negative for acute changes, injury or acute deformity, decreased range of motion, pain, swelling, tenderness. Exam: 05:36 Constitutional: This is a well developed, well nourished patient who is awake, alert, helga and in no acute distress. Head/Face: Normocephalic, atraumatic. Eyes: Pupils equal round and reactive to light, extra-ocular motions intact. Lids and lashes normal. Conjunctiva and sclera are non-icteric and not injected. Cornea within normal limits. Periorbital areas with no swelling, redness, or edema. ENT: Nares patent. No nasal discharge, no septal abnormalities noted. Tympanic membranes are normal and external auditory canals are clear. Oropharynx with no redness, swelling, or masses, exudates, or evidence of obstruction, uvula midline. Mucous membranes moist. Neck: Trachea midline, no thyromegaly or masses palpated, and no cervical lymphadenopathy. Supple, full range of motion without nuchal rigidity, or vertebral point tenderness. No Meningismus. Chest/axilla: Normal chest wall appearance and motion. Nontender with no deformity. No lesions are appreciated. Cardiovascular: Regular rate and rhythm with a normal S1 and S2. No gallops, murmurs, or rubs. Normal PMI, no JVD. No pulse deficits. Abdomen/GI: Soft, non-tender, with normal bowel sounds. No distension or tympany. No guarding or rebound. No evidence of tenderness throughout. Back: No spinal tenderness. No costovertebral tenderness. Full range of motion. Female : Normal external genitalia. Skin: Warm, dry with normal turgor. Normal color with no rashes, no lesions, and no evidence of cellulitis. MS/ Extremity: Pulses equal, no cyanosis. Neurovascular intact. Full, normal range of motion. Neuro: Awake and alert, GCS 15, oriented to person, place, time, and situation. Cranial nerves II-XII grossly intact. Motor strength 5/5 in all extremities. Sensory grossly intact. Cerebellar exam normal. Normal gait. 05:36 Respiratory: mild respiratory distress is noted, Respirations: labored breathing, that is mild, that is moderate, Breath sounds: rhonchi, wheezing: inspiratory expiratory Respiratory rate: 28 Vital Signs: 05:20 BP 152 / 98; Pulse 120; Resp 28; Temp 97.5(O); Pulse Ox 100% on R/A; Weight 79.38 kg fc (R); Height 5 ft. 3 in. (160.02 cm) (R); Pain 10/10; 06:19 BP 160 / 108; Pulse 120; Resp 28; Pulse Ox 97% on 40% BiPAP; tl2 06:37 BP 142 / 73; Pulse 120; Resp 22; Pulse Ox 97% on 40% BiPAP; lp1 09:16 BP 121 / 68; Pulse 104; Resp 18; Pulse Ox 97% on 3 lpm NC; jl7 05:20 Body Mass Index 31.00 (79.38 kg, 160.02 cm) MDM: 05:28 Patient medically screened. [facility] 05:36 Data reviewed: vital signs, nurses notes, lab test result(s), EKG, radiologic studies, [facility] CT scan, doppler, plain films, ultrasound. 05/21 05:33 Order name: Basic Metabolic Panel [facility] 05/21 05:33 Order name: CBC with Diff 05/21 05:33 Order name: Ckmb [facility] 05/21 05:33 Order name: CPK 05/21 05:33 Order name: LFT's 05/21 05:33 Order name: Magnesium [facility] 05/21 05:33 Order name: NT PRO-BNP [facility] 05/21 05:33 Order name: PT-INR [facility] 05/21 05:33 Order name: Ptt, Activated [facility] 05/21 05:33 Order name: Troponin (emerg Dept Use Only) [facility] 05/21 05:33 Order name: Blood Culture Adult (2) [facility] 05/21 05:33 Order name: Basic Metabolic Panel; Complete Time: 07:12 [facility] 05/21 05:33 Order name: CBC with Automated Diff; Complete Time: 07:12 [facility] 05/21 05:33 Order name: CKMB Creatine Kinase MB; Complete Time: 07:12 [facility] 05/21 05:33 Order name: Creatine Phosphokinase; Complete Time: 07:12 [facility] 05/21 05:33 Order name: Liver (Hepatic) Function; Complete Time: 07:12 [facility] 05/21 05:33 Order name: Magnesium; Complete Time: 07:12 [facility] 05/21 05:33 Order name: NT PRO-BNP; Complete Time: 07:12 [facility] 05/21 05:33 Order name: Protime (+INR); Complete Time: 07:12 [facility] 05/21 05:33 Order name: PTT, Activated Partial Thromb; Complete Time: 07:12 [facility] 05/21 05:33 Order name: Troponin (Emerg Dept Use Only); Complete Time: 07:12 [facility] 05/21 05:34 Order name: ABG; Complete Time: 07:12 [facility] 05/21 06:49 Order name: Lactate [facility] 05/21 06:49 Order name: Procalcitonin [facility] 05/21 09:43 Order name: Urinalysis [facility] 05/21 09:43 Order name: Basic Metabolic Panel [facility] 05/21 09:43 Order name: Basic Metabolic Panel [facility] 05/21 09:43 Order name: Basic Metabolic Panel [facility] 05/21 09:43 Order name: Basic Metabolic Panel [facility] 05/21 09:43 Order name: CBC with Automated Diff [facility] 05/21 05:33 Order name: XRAY Chest (1 view) [facility] 05/21 05:33 Order name: EKG; Complete Time: 05:34 [facility] 05/21 05:33 Order name: Cardiac monitoring; Complete Time: 05:35 [facility] 05/21 05:33 Order name: EKG - Nurse/Tech; Complete Time: 06:01 [facility] 05/21 05:33 Order name: IV Saline Lock; Complete Time: 05:35 [facility] 05/21 05:33 Order name: Labs collected and sent; Complete Time: 05:35 [facility] 05/21 05:33 Order name: O2 Per Protocol; Complete Time: 05:35 [facility] 05/21 05:33 Order name: O2 Sat Monitoring; Complete Time: 05:35 [facility] 05/21 05:33 Order name: CT Head Brain wo Cont [facility] 05/21 05:34 Order name: BIPAP [facility] 05/21 09:43 Order name: CONS Physician Consult [facility] 05/21 09:43 Order name: Respiratory Therapy Consult [facility] 05/21 09:43 Order name: Heart Healthy [facility] 05/21 09:43 Order name: CBC with Automated Diff [facility] 05/21 09:43 Order name: CBC with Automated Diff [facility] 05/21 09:43 Order name: CBC with Automated Diff [facility] 05/21 09:43 Order name: Magnesium [facility] 05/21 09:43 Order name: Magnesium [facility] 05/21 09:43 Order name: Magnesium [facility] 05/21 09:43 Order name: Magnesium [facility] 05/21 09:43 Order name: T4 Free [facility] 05/21 09:43 Order name: T4 Free [facility] 05/21 09:43 Order name: Thyroid Stimulating Hormone [facility] 05/21 09:43 Order name: Thyroid Stimulating Hormone [facility] Administered Medications: 05:35 Drug: Albuterol - atroVENT (3:1) (2.5 mg - 0.5 mg) 3 ml Route: Nebulizer; tl2 07:24 Follow up: Response: No adverse reaction; Marked relief of symptoms tl2 06:16 Drug: Zofran 4 mg Route: IVP; Site: left antecubital; tl2 07:24 Follow up: Response: No adverse reaction; Nausea is decreased tl2 06:20 Drug: NS 0.9% 1000 ml Route: IV; Rate: 125 ml/hr; Site: left antecubital; tl2 06:20 Drug: NS 0.9% 500 ml Route: IV; Rate: bolus; Site: left antecubital; tl2 07:22 Follow up: IV Status: Completed infusion; IV Intake: 500ml tl2 06:20 Drug: SOLU-Medrol 125 mg Route: IVP; Site: left antecubital; tl2 07:23 Follow up: Response: No adverse reaction tl2 06:45 Drug: levofloxacin 750 mg Volume: 150 ml; Route: IVPB; Infused Over: 90 mins; Site: tl2 left antecubital; 07:50 Drug: Magnesium Sulfate 1 grams Route: IVPB; Infused Over: 1 hrs; Site: left jl7 antecubital; Disposition: 05/21/18 05:41 Hospitalization ordered by Adin Morgan for Inpatient Admission. Preliminary diagnosis are Hypoxemia, Chronic obstructive pulmonary disease with (acute) exacerbation, Respiratory failure, unspecified with hypercapnia. - Bed requested for Telemetry/MedSurg (Inpatient). - Status is Inpatient Admission. ss - Condition is Fair. - Problem is new. - Symptoms have improved. UTI on Admission? No Signatures: Dispatcher [employer] EDMS Nona Donaldson, RN RN Jeyson Paz MD MD cha Chretien, Felicia RN LEIDA Ksenia Pruitt RN RN ss Yani Scott RN RN tl2 Travis Garcia RN RN jl7 Danette Drew Corrections: (The following items were deleted from the chart) 06:41 05:41 Hospitalization Ordered by Adin Morgan MD for Inpatient Admission. Preliminary kl diagnosis is Hypoxemia; Chronic obstructive pulmonary disease with (acute) exacerbation; Respiratory failure, unspecified with hypercapnia. Bed requested for Telemetry/MedSurg (Inpatient). Status is Inpatient Admission. Condition is Fair. Problem is new. Symptoms have improved. UTI on Admission? No. helga 10:57 06:41 05/21/2018 05:41 Hospitalization Ordered by Adin Morgan MD for Inpatient eb Admission. Preliminary diagnosis is Hypoxemia; Chronic obstructive pulmonary disease with (acute) exacerbation; Respiratory failure, unspecified with hypercapnia. Bed requested for [facility] ER HOLD. Status is Inpatient Admission. Condition is Fair. Problem is new. Symptoms have improved. UTI on Admission? No. kl 11:12 10:57 05/21/2018 05:41 Hospitalization Ordered by Adin Morgan MD for Inpatient ss Admission. Preliminary diagnosis is Hypoxemia; Chronic obstructive pulmonary disease with (acute) exacerbation; Respiratory failure, unspecified with hypercapnia. Bed requested for Telemetry/MedSurg (Inpatient). Status is Inpatient Admission. Condition is Fair. Problem is new. Symptoms have improved. UTI on Admission? No. eb
--- NOTE | 2018-05-21 05:42 | ER ---
Nurse's Notes [facility] Name: Elizabeth Ny Age: 52 yrs Sex: Female : 1965 Arrival Date: 05/21/2018 Time: 05:25 Bed 2 Private MD: Diagnosis: Hypoxemia;Chronic obstructive pulmonary disease with (acute) exacerbation;Respiratory failure, unspecified with hypercapnia Presentation: 05/21 05:20 Presenting complaint: EMS states: that they were toned for shortness of breath. Pts fc sats 80% on room air. She was placed on CPAP. Pt is complaining of headache. Transition of care: patient was not received from another setting of care. Onset of symptoms was May 20, 2018. Risk Assessment: Do you want to hurt yourself or someone else? Patient reports no desire to harm self or others. Initial Sepsis Screen: Does the patient meet any 2 criteria? RR > 20 per min. HR > 90 bpm. Yes Does the patient have a suspected source of infection? Yes: Productive cough/pneumonia. Care prior to arrival: CPAP. 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 - Social history:: Smoking status: Patient/guardian denies using tobacco. - Ebola Screening: : Patient negative for fever greater than or equal to 101.5 degrees Fahrenheit, and additional compatible Ebola Virus Disease symptoms Patient denies exposure to infectious person Patient denies travel to an Ebola-affected area in the 21 days before illness onset. Screenin:20 Abuse screen: Denies threats or abuse. Nutritional screening: No deficits noted. fc Tuberculosis screening: No symptoms or risk factors identified. Fall Risk None identified. 05:32 Abuse screen: Denies threats or abuse. Denies injuries from another. Nutritional lp1 screening: No deficits noted. Tuberculosis screening: No symptoms or risk factors identified. Fall Risk None identified. Assessment: 05:30 General: Appears distressed, Behavior is appropriate for age. Pain: Complains of pain lp1 in head. Neuro: Level of Consciousness is awake, alert, obeys commands, Oriented to person, place, time, situation. Cardiovascular: Patient's skin is warm and dry. Respiratory: Reports shortness of breath Airway is patent Trachea midline Respiratory effort is labored, Respiratory pattern is tachypnea Breath sounds with wheezes bilaterally. Onset: The symptoms/episode began/occurred gradually, the patient has severe shortness of breath. GI: Abdomen is non-distended. : No signs and/or symptoms were reported regarding the genitourinary system. EENT: No signs and/or symptoms were reported regarding the EENT system. Derm: Skin is pink, warm \T\ dry. Musculoskeletal: Circulation, motion, and sensation intact. Vital Signs: 05:20 BP 152 / 98; Pulse 120; Resp 28; Temp 97.5(O); Pulse Ox 100% on R/A; Weight 79.38 kg (R); Height 5 ft. 3 in. (160.02 cm) (R); Pain 10/10; 06:19 BP 160 / 108; Pulse 120; Resp 28; Pulse Ox 97% on 40% BiPAP; tl2 06:37 BP 142 / 73; Pulse 120; Resp 22; Pulse Ox 97% on 40% BiPAP; lp1 09:16 BP 121 / 68; Pulse 104; Resp 18; Pulse Ox 97% on 3 lpm NC; jl7 05:20 Body Mass Index 31.00 (79.38 kg, 160.02 cm) Vitals: 06:19 Cardiac Rhythm Assessment Sinus tach. tl2 ED Course: 05:20 Arm band placed on Patient placed in an exam room, on a stretcher, on oxygen, on infertility medical assistant, on pulse oximetry. 05:22 O2 via Bipap. 05:25 Patient arrived in ED. ms 05:28 Jeyson Cobb MD is Attending Physician. [facility] 05:31 Triage completed. 05:32 Patient has correct armband on for positive identification. Bed in low position. Call lp1 light in reach. Side rails up X2. barbed wire machine operator on. Pulse ox on. NIBP on. 05:35 Inserted saline lock: 20 gauge in left antecubital area, using aseptic technique. Blood ao collected. 05:39 Adin Morgan MD is Hospitalizing Provider. helga 06:11 X-ray completed. Portable x-ray completed in exam room. Patient tolerated procedure mh1 well. 06:13 XRAY Chest (1 view) In Process Unspecified. EDMS 06:37 Lexus Main, RN is Primary Nurse. lp1 06:38 No provider procedures requiring assistance completed. lp1 08:01 CT completed. Patient tolerated procedure well. Patient moved back from CT. kw1 08:01 CT Head Brain wo Cont In Process Unspecified. EDMS 09:10 Inserted saline lock: 22 gauge in right antecubital area, using aseptic technique. ss Blood collected. Administered Medications: 05:35 Drug: Albuterol - atroVENT (3:1) (2.5 mg - 0.5 mg) 3 ml Route: Nebulizer; tl2 07:24 Follow up: Response: No adverse reaction; Marked relief of symptoms tl2 06:16 Drug: Zofran 4 mg Route: IVP; Site: left antecubital; tl2 07:24 Follow up: Response: No adverse reaction; Nausea is decreased tl2 06:20 Drug: NS 0.9% 1000 ml Route: IV; Rate: 125 ml/hr; Site: left antecubital; tl2 06:20 Drug: NS 0.9% 500 ml Route: IV; Rate: bolus; Site: left antecubital; tl2 07:22 Follow up: IV Status: Completed infusion; IV Intake: 500ml tl2 06:20 Drug: SOLU-Medrol 125 mg Route: IVP; Site: left antecubital; tl2 07:23 Follow up: Response: No adverse reaction tl2 06:45 Drug: levofloxacin 750 mg Volume: 150 ml; Route: IVPB; Infused Over: 90 mins; Site: tl2 left antecubital; 07:50 Drug: Magnesium Sulfate 1 grams Route: IVPB; Infused Over: 1 hrs; Site: left jl7 antecubital; Intake: 07:22 IV: 500ml; Total: 500ml. tl2 Outcome: 05:41 Decision to Hospitalize by Provider. helga 11:12 Patient left the ED. ss Signatures: Dispatcher [employer] Jeyson Fletcher MD MD cha Harvey, [facility] Loni Bowser, RN RN fc Denzel, Evelyn ms Sonal, Ksenia, RN RN ss Lexus Main, RN RN lp1 Niles Thornton, RN RN ao Yani Scott, RN RN tl2 Travis Garcia, RN RN jl7 Nona Alvarenga [facility]
[2018-05-21 05:43] LABS: Arterial Blood Carboxyhemoglob 0.2 % (0-1.5); Blood Gas Oxyhemoglobin 97.8 % (94-97); Blood O2 Saturation 99.1 % (92-98.5)
[2018-05-21 06:02] LABS: Absolute Lymphocytes (CBC) 3.7 K/uL (0.7-4.9); Absolute Monocytes 0.5 K/uL (0.1-1.3); Absolute Neutrophil 6.2 K/uL (1.8-8.0); Basophils % 0.7 % (0-1.3); Eosinophils % 9.4 % (0-4.4); Hematocrit 39.1 % (36.0-45.0); Lymphocytes % 31.6 % (15.3-44.8); MCH 34.8 pg (27.0-35.0); MCV 101.1 fL (80-100); MPV 8.5 fL (7.6-11.3); Monocytes % 4.5 % (3.3-12.3); RBC Red Blood Cell Count 3.87 M/uL (3.86-4.86)
[2018-05-21] MEDS ORDERED: METHYLPREDNISOLONE 125 MG INJ ONE (06:07)
[2018-05-21] MEDS ORDERED: NA CHLORIDE 0.9% 1,000 ML ONE (06:07)
[2018-05-21] MEDS ORDERED: Levofloxacin500mg IV 500 MG/100 ML BAG IV ONE (06:07)
[2018-05-21] MEDS ORDERED: ONDANSETRON 4 MG/2 ML VIAL ONE ×2 (06:10→06:17)
[2018-05-21 06:19] LABS: ALT/SGPT 21 U/L (12-78); AST/SGOT 20 U/L (15-37); Albumin 4.2 g/dL (3.4-5.0); Alkaline Phosphatase 100 U/L (45-117); BUN Blood Urea Nitrogen 5 mg/dL (7-18); Bicarbonate 27 mmol/L (21-32); Bilirubin Direct < 0.1 mg/dL (0-0.2); Bilirubin Total 0.1 mg/dL (0.2-1.0); CKMB Creatine Kinase MB 1.3 ng/mL (0.3-3.6); Creatine Phosphokinase 114 U/L (26-192); Glucose Level 105 mg/dL (74-106); Magnesium 1.9 mg/dL (1.8-2.4); NT PRO-BNP 165 pg/mL (<125); Potassium 3.9 mmol/L (3.5-5.1); Protein, Total 8.7 g/dL (6.4-8.2); Sodium Level 135 mmol/L (136-145)
[2018-05-21 06:21] LABS: Protime INR 0.92
--- NOTE | 2018-05-21 06:45 | P.HP ---
Certification for Inpatient Patient admitted to: Inpatient With expected LOS: >2 Midnights Practitioner: I am a practitioner with admitting privileges, knowledge of patient current condition, hospital course, and medical plan of care. Services: Services provided to patient in accordance with Admission requirements found in Title 42 Section 412.3 of the Code of Federal Regulations Patient History Date of Service: 05/21/18 Reason for admission: COPD exacerbation History of Present Illness: Ms Ny is a 52 years old woman with history of COPD, who start about 2 days ago with progressive SOB. She has had more productive cough as well, no known color of sputum. No history of fever or chills. The patient is a former smoker. No history of chest pain associated with. At arrival the patient was in respiratory distress, with O2 Sat at 80% on RA. She was placed on BiPAP. Lab work remarkable for 11.6K WBC, afebrile, ABG remarkable for PH 7.22, CO2 67. CXR pending radiology report. Allergies codeine [Codeine] Adverse Reaction (Mild, Verified 10/14/16 05:31) Hives/Rash Home medications list reviewed: Yes Home Medications: Albuterol Sulfate [Proair Hfa] 8.5 gm IH Q6HR PRN 02/14/18 Fluticasone/Salmeterol [Fluticasone-Salmeterol 113-14] 1 puff IH BID 02/14/18 predniSONE [Deltasone*] 10 mg PO BID #20 tab 02/14/18 Theophylline Anhydrous [Carter-24] 300 mg PO DAILY 30 Days #30 cap.er.24h - Past Medical/Surgical History Diabetic: No -: COPD -: Alcohol abuse -: Former tobacco abuse -: Tubal ligation -: left leg currently broken Psychosocial/ Personal History: She is , she has 2 children. She does not work. - Family History Mother -: Other (see notes) Notes: No health problems at this time. Father -: Stroke, Cancer Notes: bone cancer - Social History Smoking Status: Former smoker Alcohol use: Yes CD- Drugs: No Caffeine use: Yes Place of Residence: Home Review of Systems 10-point ROS is otherwise unremarkable Physical Examination - Physical Exam General: Alert, Moderate distress (Due to SOB) HEENT: Atraumatic, PERRLA, Mucous membr. moist/pink, EOMI, Sclerae nonicteric Neck: Supple, 2+ carotid pulse no bruit, No LAD, Without JVD or thyroid abnormality Respiratory: Diminished, Expiratory wheezes (bilateral) Cardiovascular: Regular rate/rhythm, Normal S1 S2 Gastrointestinal: Normal bowel sounds, No tenderness Musculoskeletal: No tenderness Integumentary: No rashes, Cyanosis (distal) Neurological: Normal speech, Normal strength at 5/5 x4 extr, Normal tone, Normal affect Lymphatics: No axilla or inguinal lymphadenopathy - Studies Laboratory Data (last 24 hrs) 05/21/18 05:30: PT 10.9, INR 0.92, APTT 33.9 05/21/18 05:30: WBC 11.6 H, Hgb 13.5, Hct 39.1, Plt Count 425 H 05/21/18 05:30: Sodium 135 L, Potassium 3.9, BUN 5 L, Creatinine 0.50 L, Glucose 105, Magnesium 1.9, Total Bilirubin 0.1 L, AST 20, ALT 21, Alkaline Phosphatase 100 Assessment and Plan - Problems (Diagnosis) (1) COPD exacerbation Onset Date: 10/14/16 Current Visit: No Status: Acute (2) Alcohol abuse Onset Date: 01/31/17 Current Visit: No Status: Chronic - Plan The patient will be admitted to the hospital due to COPD exacerbation. She has 11.6 WBC count, no fever, will order lactate and procalcitonin. Sputum culture and blood cultures ordered. Will continue with breathing treatments around the clock and IV steroids. - Advance Directives Does patient have a Living Will: No Does patient have a Durable POA for Healthcare: No - Code Status/Comfort Care Code Status Assessed: Yes Code Status: Full Code
[2018-05-21] MEDS ORDERED: MAGNESIUM SULFATE 1 gm IVPB 1 GM/100 ML BAG IV ONE (07:44)
--- NOTE | 2018-05-21 08:08 | RAD REPORT ---
EXAM DESCRIPTION: CT - Head Brain Wo Cont - 05/21/2018 8:01 am CLINICAL HISTORY: Headache COMPARISON: None. TECHNIQUE: Axial 5 mm thick images of the head were obtained without IV contrast. All CT scans are performed using dose optimization technique as appropriate and may include automated exposure control or mA/KV adjustment according to patient size. FINDINGS: No intracranial hemorrhage, mass, edema or shift of mid-line structures. No acute infarcti on changes seen. No abnormal extra-axial fluid collections. Ventricles are normal. Mastoid air cells are clear. Significant mucosal thickening seen in the maxillary sinuses. Minimal ai r-fluid levels are seen. No acute bony findings. IMPRESSION: No intracranial hemorrhage, edema or acute intracranial finding. Bilateral maxillary sinusitis.
[2018-05-21] MEDS ORDERED: ONDANSETRON 4 MG (ODT) TAB ONE (09:09)
[2018-05-21] MEDS ORDERED: ACETAMINOPHEN 325 MG TABLET ONE (09:17)
--- NOTE | 2018-05-21 09:26 | EKG ---
Test Date: 2018-05-21 Test Time: 05:57:19 X Ray Equipment Mechanic: SUSIE MEASUREMENT RESULTS: Intervals: Rate: 121 TN: 134 QRSD: 86 QT: 318 QTc: 451 [place]: P: 83 TN: 134 QRS: 84 T: 60 INTERPRETIVE STATEMENTS: Sinus tachycardia Otherwise normal ECG Compared to ECG 03/09/2018 14:04:53 No significant changes Electronically Signed On 05-21-18 09:26:03 CDT by Jose Alvarado
[2018-05-21] MEDS ORDERED: ALBUTEROL 2.5 MG/3 ML NEB SOL NEB PRN ×2 (09:35→13:09)
[2018-05-21] MEDS ORDERED: IPRATROPIUM BROM 0.5MG/2.5ML NEB PRN ×2 (09:35→13:09)
[2018-05-21] MEDS ORDERED: TRAMADOL HCL 50 MG TAB PO PRN (09:35)
[2018-05-21] MEDS ORDERED: ONDANSETRON 4 MG/2 ML VIAL IV PRN ×2 (09:35→12:48)
[2018-05-21] MEDS ORDERED: ACETAMINOPHEN 500 MG TAB PO PRN ×2 (09:35→12:48)
[2018-05-21] MEDS ORDERED: NA CHLORIDE 0.9% 1,000 ML IV SCH ×2 (10:00→12:48)
--- NOTE | 2018-05-21 11:35 | RAD REPORT ---
EXAM DESCRIPTION: RAD - Chest Single View - 05/21/2018 6:14 am CLINICAL HISTORY: Cough, shortness of breath COMPARISON: February 2017 TECHNIQUE: AP portable chest image was obtained 0601 hours . FINDINGS: Lungs are clear. Heart and vasculature are normal. No measurable pleural effusion and no p neumothorax. No gross bony abnormality seen. No acute aortic findings suspected. IMPRESSION: No acute cardiopulmonary process. No significant interval change.
--- NOTE | 2018-05-21 12:29 | P.PN ---
Subjective Date of Service: 05/21/18 Primary Care Provider: [facility]; Pulmonary-Dr. Brand Chief Complaint: COPD exacerbation Subjective: Other (Patient significant improved since being admitted. Patient on nasal cannula.) Physical Examination - Vital Signs Blood Pressure: 121/68 Pulse: 104 Respirations: 18 - Physical Exam General: Alert, In no apparent distress, Oriented x3, Cooperative HEENT: Atraumatic Neck: Supple Respiratory: Expiratory wheezes (Bilateral), Inspiratory wheezes (Bilateral), Other (Poor inspiration and expiration) Cardiovascular: Normal pulses, Regular rate/rhythm Gastrointestinal: Normal bowel sounds, Soft and benign, Non-distended, No tenderness, No masses, No rebound, No guarding Musculoskeletal: No erythema, No tenderness, No warmth Integumentary: No tenderness/swelling, No erythema, No warmth, No cyanosis Neurological: Normal speech, Normal strength at 5/5 x4 extr, Normal tone, Normal affect - Studies Laboratory Data (last 24 hrs) 05/21/18 05:30: PT 10.9, INR 0.92, APTT 33.9 05/21/18 05:30: WBC 11.6 H, Hgb 13.5, Hct 39.1, Plt Count 425 H 05/21/18 05:30: Sodium 135 L, Potassium 3.9, BUN 5 L, Creatinine 0.50 L, Glucose 105, Magnesium 1.9, Total Bilirubin 0.1 L, AST 20, ALT 21, Alkaline Phosphatase 100 Medications List Reviewed: Yes Assessment & Plan - Problems (Diagnosis) (1) Acute respiratory failure Current Visit: Yes Status: Acute Plan: Patient presented with acute respiratory failure secondary COPD exacerbation. Patient much improved. Patient initially on BiPAP now on nasal cannula. Will continue with COPD medication. This includes IV steroids. Pulmonology consulted to further assess. Will wean off oxygen. Anticipate discharge in the next 24-48 hr. Qualifiers: Respiratory failure complication: hypoxia Qualified Code(s): J96.01 - Acute respiratory failure with hypoxia (2) COPD (chronic obstructive pulmonary disease) Current Visit: Yes Status: Acute Plan: Continue with COPD treatment. Wean off oxygen. Qualifiers: COPD type: COPD with acute exacerbation Qualified Code(s): J44.1 - Chronic obstructive pulmonary disease with (acute) exacerbation (3) Alcohol abuse Onset Date: 01/31/17 Current Visit: No Status: Chronic Plan: Alcohol cessation addressed in detail. (4) Former smoker Onset Date: 01/31/17 Current Visit: No Status: Chronic Plan: She no longer smokes. (5) GERD (gastroesophageal reflux disease) Current Visit: No Status: Chronic Plan: Continue with PPI Qualifiers: Esophagitis presence: esophagitis presence not specified Qualified Code(s) : K21.9 - Gastro-esophageal reflux disease without esophagitis Discharge Plan: Home Plan to discharge in: 24 Hours - Code Status/Comfort Care Code Status Assessed: Yes Time Spent Managing Pts Care (In Minutes): 55
[2018-05-21] MEDS ORDERED: ALBUTEROL 2.5 MG/3 ML NEB SOL NEB SCH (12:48)
[2018-05-21] MEDS ORDERED: IPRATROPIUM BROM 0.5MG/2.5ML NEB SCH (12:48)
[2018-05-21] MEDS: PANTOPRAZOLE 40MG TABLET PO SCH (14:16)
[2018-05-21 15:00] VITALS: BMI 30.9
[2018-05-21] MEDS ORDERED: METHYLPREDNISOLONE 40 MG INJ IV SCH (17:00)
[2018-05-21] MEDS: METHYLPREDNISOLONE 125 MG INJ IV SCH ×2 (18:00→23:10)
[2018-05-21] MEDS: NA CHLORIDE 0.9% 1,000 ML IV SCH ×2 (18:18→21:44)
[2018-05-21] MEDS: ARFORMOTEROL TARTRATE 15 MCG/2 ML VIAL.NEB NEB SCH (20:27)
[2018-05-21] MEDS ORDERED: ENOXAPARIN 40 MG/0.4 ML SQ SCH (21:00)
[2018-05-22 05:01] LABS: Absolute Lymphocytes (CBC) 0.9 K/uL (0.7-4.9); Absolute Monocytes 0.1 K/uL (0.1-1.3); Absolute Neutrophil 4.5 K/uL (1.8-8.0); Basophils % 0.3 % (0-1.3); Eosinophils % 0.1 % (0-4.4); Hematocrit 34.2 % (36.0-45.0); Lymphocytes % 16.9 % (15.3-44.8); MCH 34.7 pg (27.0-35.0); MCV 100.6 fL (80-100); MPV 8.4 fL (7.6-11.3); Monocytes % 2.3 % (3.3-12.3)
[2018-05-22 05:11] LABS: BUN Blood Urea Nitrogen 5 mg/dL (7-18); Bicarbonate 25 mmol/L (21-32); Glucose Level 136 mg/dL (74-106); Sodium Level 138 mmol/L (136-145)
[2018-05-22] MEDS: PANTOPRAZOLE 40MG TABLET PO SCH (05:12)
[2018-05-22] MEDS: METHYLPREDNISOLONE 125 MG INJ IV SCH (05:12)
[2018-05-22] MEDS: NA CHLORIDE 0.9% 1,000 ML IV SCH (05:14)
[2018-05-22] MEDS: ARFORMOTEROL TARTRATE 15 MCG/2 ML VIAL.NEB NEB SCH (07:42)
[2018-05-22 07:53] LABS: Urine Appearance CLEAR; Urine Bilirubin NEGATIVE (NEG); Urine Blood NEGATIVE (NEG); Urine Color YELLOW; Urine Glucose NEGATIVE (NEG); Urine Protein NEGATIVE (NEG); Urine Urobilinogen 0.2 mg/dL (0.2-1.0)
--- NOTE | 2018-05-22 08:05 | P.DS ---
Admission Date: 05/21/18 Discharge Date: 05/22/18 Primary Care Provider: [facility]; Pulmonary-Dr. Brand Disposition: ROUTINE DISCHARGE Discharge Condition: GOOD Reason for Admission: COPD exacerbation Consultations: None - Problems (1) Acute respiratory failure Onset Date: 05/22/18 Current Visit: Yes Status: Resolved Qualifiers: Respiratory failure complication: hypoxia Qualified Code(s): J96.01 - Acute respiratory failure with hypoxia (2) COPD (chronic obstructive pulmonary disease) Onset Date: 05/22/18 Current Visit: Yes Status: Acute Qualifiers: COPD type: COPD with acute exacerbation Qualified Code(s): J44.1 - Chronic obstructive pulmonary disease with (acute) exacerbation (3) Alcohol abuse Onset Date: 01/31/17 Current Visit: No Status: Chronic (4) Former smoker Onset Date: 01/31/17 Current Visit: No Status: Chronic (5) GERD (gastroesophageal reflux disease) Current Visit: No Status: Chronic Qualifiers: Esophagitis presence: esophagitis presence not specified Qualified Code(s) : K21.9 - Gastro-esophageal reflux disease without esophagitis (6) Tobacco smoke exposure in patient's home Current Visit: Yes Status: Acute Brief History of Present Illness: 52-year-old female presented emergency room with increasing shortness of breath over the past several days. Patient reports a history of COPD. She is a former smoker. Her significant other smokes in the house. Shortness of breath got worse. In the ER she was evaluated. The patient was tachypneic and hypoxic. The patient required BiPAP. She was admitted for treatment. Hospital Course: During the course of her stay her COPD exacerbation improved. She was quickly weaned off BiPAP to nasal cannula. She was eventually weaned off oxygen. Patient reports compliance with her medication. The significant other smokes in the house. She does not smoke anymore. At discharge she is without any need for oxygen. At discharge she will continue with Airduo 2 puffs twice daily , Pro air 2 puffs 3 times a day as needed for shortness of breath. At discharge she will continue with prednisone 20 mg 1 pill twice daily for 5 days then 1 pill once daily for 5 days. Recommendation is for the significant other not to smoke in the house. She is to continue with her medication. Recommendation is for the patient follow up with pulmonology in 1-2 weeks to monitor her progress. Recommendation is to limit exposure to dust, chemicals and smoke. Alcohol cessation education will be provided. Patient likely has GERD. She will continue with Protonix 40 mg 1 pill once daily. Vital Signs/Physical Exam: Temp Pulse Resp BP Pulse Ox 97.8 F 84 16 109/68 92 05/22/18 04:00 05/22/18 04:00 05/22/18 04:00 05/22/18 04:00 05/22/18 04:00 General: Alert, In no apparent distress, Oriented x3, Cooperative HEENT: Atraumatic Neck: Supple Respiratory: Clear to auscultation bilaterally, Normal air movement Cardiovascular: Normal pulses, Regular rate/rhythm Gastrointestinal: Normal bowel sounds, Soft and benign, Non-distended, No tenderness, No masses, No rebound, No guarding Musculoskeletal: No erythema, No tenderness, No warmth Integumentary: No tenderness/swelling, No erythema, No warmth, No cyanosis Neurological: Normal speech, Normal strength at 5/5 x4 extr, Normal tone, Normal affect Lymphatics: No axilla or inguinal lymphadenopathy Laboratory Data at Discharge: WBC 5.6 K/uL (4.3-10.9) D 05/22/18 04:32 Hgb 11.8 g/dL (12.0-15.0) L 05/22/18 04:32 Hct 34.2 % (36.0-45.0) L 05/22/18 04:32 Plt Count 324 K/uL (152-406) D 05/22/18 04:32 PT 10.9 SECONDS (9.5-12.5) 05/21/18 05:30 INR 0.92 05/21/18 05:30 APTT 33.9 SECONDS (24.3-36.9) 05/21/18 05:30 Sodium 138 mmol/L (136-145) 05/22/18 04:32 Potassium 4.0 mmol/L (3.5-5.1) 05/22/18 04:32 BUN 5 mg/dL (7-18) L 05/22/18 04:32 Creatinine 0.50 mg/dL (0.55-1.3) L 05/22/18 04:32 Glucose 136 mg/dL (74-106) H 05/22/18 04:32 Magnesium 1.9 mg/dL (1.8-2.4) 05/21/18 05:30 Total Bilirubin 0.1 mg/dL (0.2-1.0) L 05/21/18 05:30 AST 20 U/L (15-37) 05/21/18 05:30 ALT 21 U/L (12-78) 05/21/18 05:30 Alkaline Phosphatase 100 U/L (45-117) 05/21/18 05:30 Home Medications: Albuterol Sulfate [Proair Hfa] 8.5 gm IH TID PRN #1 hfa.aer.ad 05/22/18 Fluticasone/Salmeterol [Airduo Respiclick 113-14 Mcg] 2 each IH BID #1 aer.pow.ba 05/22/18 Pantoprazole [Protonix Tab*] 40 mg PO ACB #30 tab 05/22/18 predniSONE [Prednisone*] 20 mg PO SEECOM #15 tab 05/22/18 New Medications: Albuterol Sulfate [Proair Hfa] 8.5 gm IH TID PRN #1 hfa.aer.ad PRN Reason: Shortness Of Breath Fluticasone/Salmeterol [Airduo Respiclick 113-14 Mcg] 2 each IH BID #1 aer.pow.ba Pantoprazole [Protonix Tab*] 40 mg PO ACB #30 tab predniSONE [Prednisone*] 20 mg PO SEECOM #15 tab Patient Discharge Instructions: 1. Patient will need to follow up with a PCP in 1 week to follow up this hospitalization. 2. Patient presented with COPD exacerbation. Patient required BiPAP and was eventually weaned off. Patient is a former smoker. Her significant other smokes. At discharge recommendation is to continue with Airduo 2 puffs twice daily and Pro air 2 puffs 3 times a day as needed for shortness of breath. At discharge she will continue with prednisone 20 mg 1 pill twice daily for 5 days then 1 pill once daily for 5 days. Recommendation is for the significant other to not smoke around the patient. Recommendations for the patient follow up with pulmonology in 1-2 weeks to monitor her progress. Patient may need to limit exposure to smoke, chemicals, dust. 3. Patient may have GERD. She will continue with Protonix 40 mg 1 pill once daily. 4. Alcohol cessation education will be provided. Diet: AHA Activity: Ad herbert Time spent managing pt's care (in minutes): 55
[2018-05-22 08:06] LABS: Urine Microscopic Reflex ORDER UMIC
[2018-05-22 08:18] LABS: Urine Bacteria <20 /HPF (<20); Urine Culture Reflex Order NOT NEEDED; Urine RBC <5 /HPF (NONE SEEN)
[2018-05-22 08:23] VITALS: BP 122/69; TEMP 97.9
[2018-05-22] MEDS ORDERED: ASPIRIN EC 81 MG TAB PO SCH (09:00)
[2018-05-22] MEDS ORDERED: ENOXAPARIN 40 MG/0.4 ML SQ SCH (11:00)
[2018-05-22 11:56] VITALS: O2SAT 92
== END 2018-05-22 11:25 | disposition home or self-care (01) ==
LOC: ER 05:23 → ERHOLD 09:37 → 2ND 11:02
PROVIDERS: ADMIT Family Medicine; ATTEND Family Medicine
DX: J96.01 Acute respiratory failure with hypoxia (principal); J44.1 Chronic obstructive pulmonary disease with (acute) exacerbation; F10.10 Alcohol abuse, uncomplicated; Z87.891 Personal history of nicotine dependence; K21.9 Gastro-esophageal reflux disease without esophagitis; Z77.22 Contact with and (suspected) exposure to environmental tobacco smoke (acute) (chronic); Z88.5 Allergy status to narcotic agent; J32.0 Chronic maxillary sinusitis; R00.0 Tachycardia, unspecified
CPT/HCPCS: 36415; 70450; 71045; 80048; 80076; 81003; 81015; 82550; 82553; 82805; 83605; 83735; 83880; 84145; 84484; 85025; 85610; 85730; 87040; 93005; 94640; 94660; 96361; 96374; 96375; 99285; G0378; J2405; J2930; J3475; J7030; J7605

== ENCOUNTER 2018-10-03 17:26 | Inpatient (IN) | payer SELFPAY ==
[2018-10-03] MEDS ORDERED: IPRATROPIUM BROM 0.5MG/2.5ML ONE ×4 (17:40→18:38)
[2018-10-03] MEDS ORDERED: ALBUTEROL 2.5 MG/3 ML NEB SOL ONE ×2 (17:40→18:33)
[2018-10-03] MEDS ORDERED: Magnesium Sulfate 2gm IVPB 2 G/50 ML BAG IV ONE (18:10)
[2018-10-03] MEDS ORDERED: METHYLPREDNISOLONE 125 MG INJ ONE (18:10)
[2018-10-03 18:20] LABS: Absolute Lymphocytes (CBC) 3.2 K/uL (0.7-4.9); Absolute Monocytes 0.6 K/uL (0.1-1.3); Absolute Neutrophil 3.5 K/uL (1.8-8.0); Basophils % 0.9 % (0-1.3); Eosinophils % 12.5 % (0-4.4); Hematocrit 39.4 % (36.0-45.0); Lymphocytes % 38.2 % (15.3-44.8); MCH 33.1 pg (27.0-35.0); MCV 96.5 fL (80-100); Monocytes % 6.8 % (3.3-12.3); RBC Red Blood Cell Count 4.09 M/uL (3.86-4.86)
[2018-10-03 18:20] LABS: Arterial Blood Carboxyhemoglob 0.9 % (0-1.5); Blood Gas Oxyhemoglobin 94.5 % (94-97); Blood O2 Saturation 96.2 % (92-98.5)
[2018-10-03 18:42] LABS: Magnesium 2.1 mg/dL (1.8-2.4)
--- NOTE | 2018-10-03 19:49 | RAD REPORT ---
EXAM DESCRIPTION: RAD - Chest Single View - 10/03/2018 7:09 pm CLINICAL HISTORY: Shortness of breath, cough, wheezing COMPARISON: Portable chest May 21, CT chest February 2018, portable chest January 2018 TECHNIQUE: AP portable chest image was obtained 1903 hours . FINDINGS: No focal consolidation or mass. Hazy lung opacification at the left lateral base is not cl early different from multiple prior studies. This is probably summation artifact of lung parenchyma a nd pericardial fat. Right infrahilar markings are slightly more pronounced but not definitive for inf iltrate at this time. Correlation is needed with clinical exam findings in the medial right base. Int erstitial markings are fractionally increased over comparison. Heart and vasculature are normal. No measurable pleural effusion and no pneumothorax. No acute bony a bnormality seen. No acute aortic findings suspected. IMPRESSION: No focal mass or consolidation confirmed. Lung markings are increased slightly from comparison imaging suggesting a mild interstitial edema or infiltrate.
--- NOTE | 2018-10-03 19:53 | EDPHYS ---
Physician Documentation [facility] Name: Elizabeth Ny Age: 52 yrs Sex: Female : 1965 Arrival Date: 10/03/2018 Time: 17:30 Bed 4 Private MD: ED Physician Patrick Wong HPI: 10/03 19:19 This 52 yrs old Female presents to ER via Wheelchair with complaints of gs Shortness Of Breath. 19:19 The patient has shortness of breath at rest. Onset: The symptoms/episode began/occurred gs 4 day(s) ago, and became worse and became persistent. Duration: The symptoms are continuous. The patient's shortness of breath has no apparent modifying factors. Associated signs and symptoms: Pertinent positives: productive cough. Severity of symptoms: At their worst the symptoms were incapacitating in the emergency department the symptoms are unchanged. The patient has experienced similar episodes in the past, a few times. 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 - Social history:: The patient lives at home, Smoking status: Patient/guardian denies using tobacco. - Ebola Screening: : Patient negative for fever greater than or equal to 101.5 degrees Fahrenheit, and additional compatible Ebola Virus Disease symptoms Patient denies exposure to infectious person Patient denies travel to an Ebola-affected area in the 21 days before illness onset. ROS: 19:27 Unable to obtain ROS due to patient distress. gs Exam: 19:27 Head/Face: Normocephalic, atraumatic. Eyes: Pupils equal round and reactive to light, gs extra-ocular motions intact. Lids and lashes normal. Conjunctiva and sclera are non-icteric and not injected. Cornea within normal limits. Periorbital areas with no swelling, redness, or edema. ENT: Nares patent. No nasal discharge, no septal abnormalities noted. Tympanic membranes are normal and external auditory canals are clear. Oropharynx with no redness, swelling, or masses, exudates, or evidence of obstruction, uvula midline. Mucous membranes moist. Neck: Trachea midline, no thyromegaly or masses palpated, and no cervical lymphadenopathy. Supple, full range of motion without nuchal rigidity, or vertebral point tenderness. No Meningismus. Chest/axilla: Normal chest wall appearance and motion. Nontender with no deformity. No lesions are appreciated. 19:27 Constitutional: The patient appears alert, awake, in obvious distress, severely distressed. 19:27 Cardiovascular: Rate: tachycardic, Rhythm: regular, Pulses: no pulse deficits are appreciated, Edema: is not appreciated. 19:42 Abdomen/GI: Soft, non-tender, with normal bowel sounds. No distension or tympany. No gs guarding or rebound. No evidence of tenderness throughout. Back: No spinal tenderness. No costovertebral tenderness. Full range of motion. Skin: Warm, dry with normal turgor. Normal color with no rashes, no lesions, and no evidence of cellulitis. MS/ Extremity: Pulses equal, no cyanosis. Neurovascular intact. Full, normal range of motion. Neuro: Awake and alert, GCS 15, oriented to person, place, time, and situation. Cranial nerves II-XII grossly intact. Motor strength 5/5 in all extremities. Sensory grossly intact. Cerebellar exam normal. Normal gait. 19:42 ECG was reviewed by the Attending Physician. 19:42 Respiratory: severe repiratory distress is noted, Respirations: tachypnea, Breath sounds: decreased breath sounds, that are severe, rhonchi, that are severe, are heard diffusely. Vital Signs: 17:35 BP 142 / 91; Pulse 110; Resp 30; Temp 97.7(TE); Pulse Ox 90% on R/A; Weight 77.11 kg; ph 17:41 BP 115 / 97; Pulse 109; Resp 38; sv 19:10 BP 121 / 72; Pulse 101; Resp 27; Temp 97.5; Pulse Ox 99% on BiPAP; Pain 0/10; rr5 20:23 BP 123 / 65; Pulse 92; Resp 18; Pulse Ox 96% on 4 lpm NC; tl2 21:00 BP 111 / 70; Pulse 86; Resp 22; Pulse Ox 95% on 3 lpm NC; rr5 MDM: 17:49 Patient medically screened. gs 19:42 Differential diagnosis: CHF exacerbation, Chronic Obstructive Pulmonary Disease gs Myocardial Infarction pneumonia. Data reviewed: vital signs, nurses notes. Counseling: I had a detailed discussion with the patient and/or guardian regarding: the historical points, exam findings, and any diagnostic results supporting the discharge/admit diagnosis, the need for further work-up and treatment in the hospital. 10/03 17:48 Order name: ABG; Complete Time: 18:51 gs 10/03 17:48 Order name: NT PRO-BNP; Complete Time: 18:51 gs 10/03 17:48 Order name: Basic Metabolic Panel; Complete Time: 18:51 gs 10/03 17:48 Order name: CBC with Diff; Complete Time: 18:51 gs 10/03 17:48 Order name: Magnesium; Complete Time: 18:51 gs 10/03 17:49 Order name: Blood Culture* 10/03 17:43 Order name: BIPAP sv 10/03 17:48 Order name: XRAY Chest (1 view); Complete Time: 19:53 gs 10/03 20:06 Order name: Lactate EDTN 10/03 20:06 Order name: Procalcitonin EDTN 10/03 17:48 Order name: EKG; Complete Time: 17:49 10/03 17:48 Order name: Cardiac monitoring; Complete Time: 17:54 gs 10/03 17:48 Order name: EKG - Nurse/Tech; Complete Time: 20:17 gs 10/03 17:48 Order name: IV Saline Lock; Complete Time: 17:55 gs 10/03 17:48 Order name: Labs collected and sent; Complete Time: 17:55 gs 10/03 17:48 Order name: O2 Per Protocol; Complete Time: 17:55 10/03 17:48 Order name: O2 Sat Monitoring; Complete Time: 17:55 gs EC:42 Rate is 97 beats/min. Rhythm is regular. NH interval is normal. QRS interval is normal. gs QT interval is normal. T waves are Normal. No ST changes noted. Clinical impression: Normal ECG. Interpreted by me. Administered Medications: 17:35 Drug: Albuterol - atroVENT (3:1) (2.5 mg - 0.5 mg) 3 ml Route: Nebulizer; sv 18:04 Drug: AtroVENT Aerosol 0.5 mg Route: Inhalation; sv 18:15 Drug: SOLU-Medrol 125 mg Route: IVP; Site: left antecubital; sg 21:11 Follow up: Response: No adverse reaction rr5 18:20 Drug: Magnesium Sulfate 2 grams Route: IVPB; Infused Over: 2 hrs; Site: left sg antecubital; 20:20 Follow up: Response: No adverse reaction; IV Status: Completed infusion; IV Intake: rr5 100ml 18:38 Drug: Albuterol - atroVENT (3:1) (2.5 mg - 0.5 mg) 3 ml Route: Nebulizer; sg 21:10 Follow up: Response: No adverse reaction; Marked relief of symptoms rr5 Disposition: 19:42 Critical Care:. Disposition: 10/03/18 19:53 Hospitalization ordered by Adin Morgan for Inpatient Admission. Preliminary diagnosis are Chronic obstructive pulmonary disease with (acute) exacerbation, Acute respiratory failure, Acute respiratory failure with hypercapnia. - Bed requested for Telemetry/MedSurg (Inpatient). - Status is Inpatient Admission. aa1 - Condition is Stable. - Problem is an acute exacerbation. - Symptoms have improved. UTI on Admission? No Critical care time excluding procedures: 19:42 Critical care time: Bedside Care: 10 minutes, Consultation: 10 minutes, Family gs Intervention: 10 minutes. Total time: 30 minutes Signatures: Dispatcher [employer] EDAngelica Cohen RN RN Masha Berry RN RN Perez Jean-Baptiste RN RN Edilma James RN RN [facility] Edna Manuel RN LEIDA Patrick Wong MD MD Evangelista De Paz RN RN rr5 Corrections: (The following items were deleted from the chart) 20:12 19:53 Hospitalization Ordered by Adin Morgan MD for Inpatient Admission. Preliminary diagnosis is Chronic obstructive pulmonary disease with (acute) exacerbation; Acute respiratory failure; Acute respiratory failure with hypercapnia. Bed requested for Telemetry/MedSurg (Inpatient). Status is Inpatient Admission. Condition is Stable. Problem is an acute exacerbation. Symptoms have improved. UTI on Admission? No. 21:33 20:12 10/03/2018 19:53 Hospitalization Ordered by Adin Morgan MD for Inpatient aa1 Admission. Preliminary diagnosis is Chronic obstructive pulmonary disease with (acute) exacerbation; Acute respiratory failure; Acute respiratory failure with hypercapnia. Bed requested for Telemetry/MedSurg (Inpatient). Status is Inpatient Admission. Condition is Stable. Problem is an acute exacerbation. Symptoms have improved. UTI on Admission? No. mw
--- NOTE | 2018-10-03 19:53 | ER ---
Nurse's Notes [facility] Name: Elizabeth Ny Age: 52 yrs Sex: Female : 1965 Arrival Date: 10/03/2018 Time: 17:30 Bed 4 Private MD: Diagnosis: Chronic obstructive pulmonary disease with (acute) exacerbation;Acute respiratory failure;Acute respiratory failure with hypercapnia Presentation: 10/03 17:32 Presenting complaint: Patient states: SOB and cough progressively worsening x 2 weeks, ph Spo2 84% RA at home, 90% RA in ED, audible wheezes, labored breathing and tripoding noted, hx of COPD. Transition of care: patient was not received from another setting of care. Onset of symptoms was October 03, 2018. Risk Assessment: Do you want to hurt yourself or someone else? Patient reports no desire to harm self or others. Initial Sepsis Screen: Does the patient meet any 2 criteria? RR > 20 per min. Does the patient have a suspected source of infection? No. Patient's initial sepsis screen is negative. Care prior to arrival: None. 17:32 Method Of Arrival: Wheelchair ph 17:32 Acuity: CAROLYN 2 ph Triage Assessment: 21:08 Respiratory: Onset: The symptoms/episode began/occurred. rr5 LIFE INSURANCE SALES: 21:08 LMP 2012 rr5 Historical: - Allergies: 17:38 Codeine; ph - PMHx: 17:38 Bronchitis; COPD; ph - PSHx: 17:38 Tubal ligation; ph - Immunization history:: Flu vaccine is not up to date. - Social history:: The patient lives at home, Smoking status: Patient/guardian denies using tobacco. - Ebola Screening: : Patient negative for fever greater than or equal to 101.5 degrees Fahrenheit, and additional compatible Ebola Virus Disease symptoms Patient denies exposure to infectious person Patient denies travel to an Ebola-affected area in the 21 days before illness onset. Screenin:51 Abuse screen: Denies threats or abuse. Denies injuries from another. Nutritional sg screening: No deficits noted. Tuberculosis screening: No symptoms or risk factors identified. Never had TB. Fall Risk None identified. Assessment: 17:44 Reassessment: Rosalia from RT placing BIPAP on pt. sv 17:49 General: Appears distressed, uncomfortable, well groomed, well developed, well sg nourished, Behavior is appropriate for age, anxious, restless. Pain: Denies pain. Neuro: No deficits noted. Cardiovascular: Capillary refill is brisk in bilateral fingers Patient's skin is warm and dry. Chest pain is denied. Respiratory: Airway is patent Respiratory effort is even, labored, shallow, Respiratory pattern is symmetrical, tachypnea Breath sounds are coarse Breath sounds with wheezes. GI: No signs and/or symptoms were reported involving the gastrointestinal system. : No signs and/or symptoms were reported regarding the genitourinary system. EENT: Nares are clear bilaterally Oral mucosa is moist. Throat is clear. Derm: Skin is pink, warm \T\ dry. Musculoskeletal: No signs and/or symptoms reported regarding the musculoskeletal system. 18:05 Reassessment: BIPAP 30%, 09/28. sv 19:10 General: Appears in no apparent distress. comfortable, Behavior is calm, cooperative, rr5 appropriate for age. Pain: Denies pain. Neuro: Level of Consciousness is awake, alert, obeys commands, Oriented to person, place, time, situation. Cardiovascular: Capillary refill < 3 seconds Patient's skin is warm and dry. 19:10 Cardiovascular: Rhythm is sinus tachycardia. rr5 19:10 Respiratory: Airway is patent Respiratory effort is even, unlabored, Respiratory rr5 pattern is symmetrical, tachypnea. GI: No signs and/or symptoms were reported involving the gastrointestinal system. : No signs and/or symptoms were reported regarding the genitourinary system. EENT: No signs and/or symptoms were reported regarding the EENT system. Derm: Skin is pink, warm \T\ dry. Musculoskeletal: No signs and/or symptoms reported regarding the musculoskeletal system. 20:30 Reassessment: Patient appears in no apparent distress at this time. came rr5 and examined the patient with order to wean the patient from BIPAP. shifted to nasal cannula started at 4 Liters per minute. 21:00 Reassessment: Patient appears in no apparent distress at this time. Patient is alert, rr5 oriented x 3, equal unlabored respirations, skin warm/dry/pink. no complaints made. oxygen tapered to 3 liters via nasal cannula. Vital Signs: 17:35 BP 142 / 91; Pulse 110; Resp 30; Temp 97.7(TE); Pulse Ox 90% on R/A; Weight 77.11 kg; ph 17:41 BP 115 / 97; Pulse 109; Resp 38; sv 19:10 BP 121 / 72; Pulse 101; Resp 27; Temp 97.5; Pulse Ox 99% on BiPAP; Pain 0/10; rr5 20:23 BP 123 / 65; Pulse 92; Resp 18; Pulse Ox 96% on 4 lpm NC; tl2 21:00 BP 111 / 70; Pulse 86; Resp 22; Pulse Ox 95% on 3 lpm NC; rr5 ED Course: 17:30 Patient arrived in ED. mr 17:35 Triage completed. ph 17:37 Arm band placed on. ph 17:39 Perez Jean-Baptiste, LEIDA is Primary Nurse. sg 17:40 Patient has correct armband on for positive identification. Bed in low position. sv monitoring and evaluation advisor on. Pulse ox on. NIBP on. Head of bed elevated. 17:40 Initial lab(s) drawn, by me. Inserted saline lock: 20 gauge in left antecubital area, sv using aseptic technique. Blood collected. Flushed left antecubital with 5 ml normal saline. 17:43 Patrick Wong MD is Attending Physician. gs 18:04 BIPAP Sent. sv 19:10 XRAY Chest (1 view) In Process Unspecified. EDMS 19:52 Adin Morgan MD is Hospitalizing Provider. gs 21:05 No provider procedures requiring assistance completed. Patient admitted, IV remains in rr5 place. intact. Administered Medications: 17:35 Drug: Albuterol - atroVENT (3:1) (2.5 mg - 0.5 mg) 3 ml Route: Nebulizer; sv 18:04 Drug: AtroVENT Aerosol 0.5 mg Route: Inhalation; sv 18:15 Drug: SOLU-Medrol 125 mg Route: IVP; Site: left antecubital; sg 21:11 Follow up: Response: No adverse reaction rr5 18:20 Drug: Magnesium Sulfate 2 grams Route: IVPB; Infused Over: 2 hrs; Site: left sg antecubital; 20:20 Follow up: Response: No adverse reaction; IV Status: Completed infusion; IV Intake: rr5 100ml 18:38 Drug: Albuterol - atroVENT (3:1) (2.5 mg - 0.5 mg) 3 ml Route: Nebulizer; sg 21:10 Follow up: Response: No adverse reaction; Marked relief of symptoms rr5 Intake: 20:20 IV: 100ml; Total: 100ml. rr5 Outcome: 19:53 Decision to Hospitalize by Provider. 21:05 Admitted to Tele accompanied by tech, via wheelchair, with oxygen, with chart, Report rr5 called to jailyn CASAREZ 21:05 Condition: stable 21:05 Instructed on the need for admit. 21:33 Patient left the ED. aa1 Signatures: Dispatcher [employer] Angelica Cope RN LEIDA Perez Jean-Baptiste RN RN Edilma Woodard RN RN aa1 Halima Painter ManuelEdna RN LEIDA Yani Scott RN RN tl2 Patrick Wong MD MD gs Roque, Raymond RN RN rr5 Corrections: (The following items were deleted from the chart) 17:43 17:41 Resp 38bpm; sv
--- NOTE | 2018-10-03 20:20 | P.HP ---
Certification for Inpatient Patient admitted to: Inpatient With expected LOS: >2 Midnights Practitioner: I am a practitioner with admitting privileges, knowledge of patient current condition, hospital course, and medical plan of care. Services: Services provided to patient in accordance with Admission requirements found in Title 42 Section 412.3 of the Code of Federal Regulations Patient History Date of Service: 10/03/18 Reason for admission: COPD exacerbation History of Present Illness: Ms Ny is a 52 years old woman with history of COPD, former smoker, who start about 2 days ago with progressive SOB associated with more productive cough than usual, with creamy thick secretions. She denied fever or chills. No chest pain either. Her daughter saw her today, and she was breathing hard and quick. 911 was called, at home O2 sat was 84% on RA with audible wheezing. Once arrived to ER, O2 Sat was 90% on RA. Lab work shows normal WBC count, lacatate and procalcitonin are pending. CXR remarkable for bilateral interstitial infiltrate. She denied nausea, vomiting or diarrhea. At my encounter the patient was already on BiPAP and feeling better. Allergies codeine [Codeine] Adverse Reaction (Mild, Verified 10/14/16 05:31) Hives/Rash Home medications list reviewed: Yes Home Medications: Albuterol Sulfate [Proair Hfa] 8.5 gm IH TID PRN #1 [email or web address] 05/22/18 Fluticasone/Salmeterol [Airduo Respiclick 113-14 Mcg] 2 each IH BID #1 [email or web address] 05/22/18 Pantoprazole [Protonix Tab*] 40 mg PO ACB #30 tab 05/22/18 predniSONE [Prednisone*] 20 mg PO SEECOM #15 tab 05/22/18 - Past Medical/Surgical History Diabetic: No -: COPD -: Alcohol abuse -: Former tobacco abuse -: Tubal ligation -: left leg currently broken Psychosocial/ Personal History: She is , she has 2 children. She does not work. - Family History Mother -: Other (see notes) Notes: No health problems at this time. Father -: Stroke, Cancer Notes: bone cancer - Social History Smoking Status: Former smoker Alcohol use: Yes CD- Drugs: No Caffeine use: Yes Place of Residence: Home Review of Systems 10-point ROS is otherwise unremarkable Physical Examination - Physical Exam General: Alert, In no apparent distress HEENT: Atraumatic, PERRLA, Mucous membr. moist/pink, EOMI, Sclerae nonicteric Neck: Supple, 2+ carotid pulse no bruit, No LAD, Without JVD or thyroid abnormality Respiratory: Diminished, Expiratory wheezes (no wheezing at my examination.), Rhonchi/gurgles (scattered bilateral) Cardiovascular: Regular rate/rhythm, Normal S1 S2 Gastrointestinal: Normal bowel sounds, No tenderness Musculoskeletal: No tenderness Integumentary: No rashes Neurological: Normal speech, Normal strength at 5/5 x4 extr, Normal tone, Normal affect Lymphatics: No axilla or inguinal lymphadenopathy - Studies Laboratory Data (last 24 hrs) 10/03/18 17:45: WBC 8.3, Hgb 13.5, Hct 39.4, Plt Count 379 10/03/18 17:45: Sodium 141, Potassium 4.0, BUN 4 L, Creatinine 0.70, Glucose 95 , Magnesium 2.1 Assessment and Plan - Problems (Diagnosis) (1) COPD exacerbation Onset Date: 10/14/16 Current Visit: No Status: Acute (2) Hypoxia Onset Date: ~10/14/16 Current Visit: No Status: Acute (3) Former smoker Onset Date: 01/31/17 Current Visit: No Status: Chronic - Plan The patient will be admitted to the hospital due to COPD exacerbation. Awaiting lactate and procalcitonin level, WBC normal, CXR with bilateral interstitial infiltrate. Will order empiric IV antibiotic, IV steroids and breathing treatments. Will consult Dr Brand. - Advance Directives Does patient have a Living Will: No Does patient have a Durable POA for Healthcare: No - Code Status/Comfort Care Code Status Assessed: Yes Code Status: Full Code
[2018-10-03] MEDS ORDERED: ONDANSETRON 4 MG/2 ML VIAL IV PRN (21:38)
[2018-10-03] MEDS: NA CHLORIDE 0.9% 1,000 ML IV SCH (22:32)
[2018-10-03] MEDS: METHYLPREDNISOLONE 40 MG INJ IV SCH (23:40)
[2018-10-04] MEDS: METHYLPREDNISOLONE 40 MG INJ IV SCH ×3 (05:42→14:00)
[2018-10-04] MEDS: NA CHLORIDE 0.9% 1,000 ML IV SCH (05:47)
[2018-10-04 06:18] LABS: Absolute Lymphocytes (CBC) 0.8 K/uL (0.7-4.9); Absolute Neutrophil 3.8 K/uL (1.8-8.0); Basophils % 0.5 % (0-1.3); Eosinophils % 0.1 % (0-4.4); Hematocrit 36.8 % (36.0-45.0); Lymphocytes % 16.4 % (15.3-44.8); MCH 33.3 pg (27.0-35.0); MCV 97.4 fL (80-100); MPV 10.1 fL (7.6-11.3); Monocytes % 0.9 % (3.3-12.3); RBC Red Blood Cell Count 3.77 M/uL (3.86-4.86)
[2018-10-04 06:34] LABS: BUN Blood Urea Nitrogen 8 mg/dL (7-18); Bicarbonate 24 mmol/L (21-32); Glucose Level 169 mg/dL (74-106); Potassium 4.2 mmol/L (3.5-5.1); Sodium Level 136 mmol/L (136-145)
--- NOTE | 2018-10-04 06:59 | EKG ---
Test Date: 2018-10-03 Test Time: 19:35:00 Masonry Inspector: SWG MEASUREMENT RESULTS: Intervals: Rate: 97 [place]: 122 QRSD: 78 QT: 352 QTc: 447 [place]: P: 81 [place]: 122 QRS: 85 T: 63 INTERPRETIVE STATEMENTS: Normal sinus rhythm Right atrial enlargement Borderline ECG Compared to ECG 05/21/2018 05:57:19 Atrial abnormality now present Sinus tachycardia no longer present Electronically Signed On 10-04-18 06:59:04 PIN GAME MACHINE INSPECTOR by Jose Alvarado
--- NOTE | 2018-10-04 08:04 | P.CNS ---
Date of Consult: 10/04/18 Chief Complaint: COPD exacerbation History of Present Illness: Patient is 52 years of age with a history of COPD admitted with a 4 day history of a cough worsening shortness of breath patient uses nebulizers and Flovent at home denies any fever chills nonproductive cough no chest pain no other complaints apprehensive and anxious Allergies codeine [Codeine] Adverse Reaction (Mild, Verified 10/14/16 05:31) Hives/Rash Home Medications: Albuterol Sulfate [Proair Hfa] 8.5 gm IH TID PRN #1 [email or web address] 05/22/18 Fluticasone/Salmeterol [Airduo Respiclick 113-14 Mcg] 2 each IH BID #1 aer.[email or web address] 05/22/18 predniSONE [Prednisone*] 20 mg PO SEECOM #15 tab 05/22/18 Omeprazole Magnesium [Prilosec Otc] 20 mg PO DAILY 10/03/18 - Past Medical/Surgical History Diabetic: No -: COPD -: Alcohol abuse -: Former tobacco abuse -: Tubal ligation -: left leg currently broken Psychosocial/ Personal History: She is , she has 2 children. She does not work. - Family History Mother Medical History: Other (see notes) Notes: No health problems at this time. Father Medical History: Stroke, Cancer Notes: bone cancer - Social History Smoking Status: Former smoker Alcohol use: Yes CD- Drugs: No Caffeine use: Yes Place of Residence: Home Review of Systems General: Weakness Respiratory: Cough, Shortness of Breath Physical Examination Temp Pulse Resp BP Pulse Ox 96.8 F 73 20 90/63 97 10/04/18 04:00 10/04/18 04:00 10/04/18 04:00 10/04/18 04:00 10/04/18 04:00 General: Alert, Oriented x3, Mild distress Neck: Supple Respiratory: Expiratory wheezes Cardiovascular: No edema, Regular rate/rhythm Gastrointestinal: Normal bowel sounds, Soft and benign Musculoskeletal: No clubbing, No swelling Laboratory Data (last 24 hrs) 10/03/18 17:45: WBC 8.3, Hgb 13.5, Hct 39.4, Plt Count 379 10/03/18 17:45: Sodium 141, Potassium 4.0, BUN 4 L, Creatinine 0.70, Glucose 95 , Magnesium 2.1 - Problems (1) COPD exacerbation Onset Date: 10/14/16 Current Visit: No Status: Acute Plan: Patient is 52 years of age admitted with COPD exacerbation and international exchange coordinator to p.o. prednisone he will need to be discharged home on prednisone 10 mg twice a day for 10 days in addition to couple of refills in case she has an exacerbation in the future patient will also need to stop by and pickle processor some sample of Symbicort currently she uses Flovent also international exchange coordinator to p.o. levofloxacin chemistries reviewed oxygenation satisfactory possible discharge in 1 or 2 days
[2018-10-04] MEDS: ARFORMOTEROL TARTRATE 15 MCG/2 ML VIAL.NEB NEB SCH ×2 (08:12→20:00)
[2018-10-04] MEDS: IPRATROPIUM BROM 0.5MG/2.5ML NEB PRN ×2 (08:12→13:31)
[2018-10-04] MEDS: ALBUTEROL 2.5 MG/3 ML NEB SOL NEB PRN ×2 (08:12→13:31)
[2018-10-04] MEDS ORDERED: CEFTRIAXONE/SWI 1gm 1 GM/10 ML SYR IV SCH (09:00)
[2018-10-04] MEDS ORDERED: AZITHROMYCIN IV 500 MG in NA CHLORIDE 0.9% 250 ML IVPB SCH (09:00)
[2018-10-04] MEDS ORDERED: CEFTRIAXONE 1 GM/NS 50 ML 1 GM/50 ML BAG IV SCH (09:00)
[2018-10-04] MEDS ORDERED: INFLUENZA VACCINE (for 3y+) 0.5 ML DOSE IMVAC ONE (10:00)
[2018-10-04] MEDS: BENZONATATE 100 MG CAP PO PRN (10:20)
[2018-10-04] MEDS: ENOXAPARIN 40 MG/0.4 ML SQ SCH (10:20)
[2018-10-04] MEDS: levoFLOXacin 500 MG TAB PO SCH (10:21)
[2018-10-04] MEDS: GUAIFENESIN 600 MG SA TAB PO SCH ×2 (10:21→20:38)
[2018-10-04] MEDS: ASPIRIN EC 81 MG TAB PO SCH (10:21)
--- NOTE | 2018-10-04 11:01 | RAD REPORT ---
EXAM DESCRIPTION: US - CP - 10/04/2018 10:10 am CLINICAL HISTORY: sob, evaluate for pvd COMPARISON: No comparisons TECHNIQUE: Real-time sonographic evaluation of both carotid systems was performed. Doppler interroga tion was performed with waveform tracing bilaterally. FINDINGS: Normal high resistance waveforms are noted in both external carotid arteries. The common c arotid arteries and internal carotid arteries show normal low resistance waveforms. Small amount of plaquing is present both carotid bulbs. Peak systolic and end diastolic velocity valu es and the ICA/CCA ratios are in the non-hemodynamically significant range. Antegrade flow seen in both vertebral arteries. IMPRESSION: Small amount of plaquing in both carotid bulbs. No evidence of a hemodynamically significant stenosis.
--- NOTE | 2018-10-04 11:18 | ECHO ---
HEIGHT: 5 ft 3 in WEIGHT: 169 lb 9.6 oz DATE OF STUDY: 10/04/[address]: Yosef Carmichael DO 2-DIMENSIONAL: YES M.MODE: YES DOPPLER: YES COLOR FLOW: YES TDS: NO PORTABLE: NO DEFINITY: NO BUBBLE STUDY: NO DIAGNOSIS: SHORTNESS OF BREATH/CONGESTIVE HEART FAILURE CARDIAC HISTORY: CATHERIZATION: NO SURGERY: NO PROSTHETIC VALVE: NO PACEMAKER: NO MEASUREMENTS (cm) DIASTOLIC (NORMALS) SYSTOLIC (NORMALS) IVSd 1.0 (0.6-1.2) LA Diam 3.4 (1.9-4.0) LVEF 71% LVIDd 3.9 (3.5-5.7) LVIDs 2.4 (2.0-3.5) %FS 39% LVPWd 1.1 (0.6-1.2) Ao Diam 2.8 (2.0-3.7) 2 DIMENSIONAL ASSESSMENT: RIGHT ATRIUM: NORMAL LEFT ATRIUM: NORMAL RIGHT VENTRICLE: NORMAL LEFT VENTRICLE: NORMAL TRICUSPID VALVE: NORMAL MITRAL VALVE: NORMAL PULMONIC VALVE: NORMAL AORTIC VALVE: NORMAL PERICARDIAL EFFUSION: NONE AORTIC ROOT: NORMAL LEFT VENTRICULAR WALL MOTION: NORMAL. DOPPLER/COLOR FLOW: MILD TRICUSPID REGURGITATION. MILD PULMONARY HYPERTENSION. ESTIMATED RIGHT VENTRICULAR SYSTOLIC PRESSURE 40mmHg. ESTIMATED RIGHT VENTRICULAR SYSTOLIC PRESESURE 15mmHg (ELEVATED). COMMENTS: NORMAL 2D ECHO. MILD TRICUSPID REGURGITATION. MILD PULMONARY HYPERTENSION. ELEVATED RIGHT ATRIAL PRESSURE. TECHNOLOGIST: KAITY BARGER
--- NOTE | 2018-10-04 15:21 | P.PN ---
Subjective Date of Service: 10/04/18 Primary Care Provider: [facility] Chief Complaint: COPD exacerbation Subjective: Other (Patient still with shortness of breath but slightly improved. ) Physical Examination - Vital Signs Temperature: 97.7 F Blood Pressure: 123/64 Pulse: 88 Respirations: 20 Pulse Ox (%): 95 - Physical Exam General: Alert, In no apparent distress, Oriented x3, Cooperative HEENT: Atraumatic Neck: Supple Respiratory: Crackles/rales (Bilateral), Expiratory wheezes (Bilateral), Inspiratory wheezes (Bilateral) Cardiovascular: Normal pulses, Regular rate/rhythm Gastrointestinal: Normal bowel sounds, Soft and benign, Non-distended, No tenderness, No masses, No rebound, No guarding Musculoskeletal: No erythema, No tenderness, No warmth Integumentary: No erythema, No warmth, No cyanosis Neurological: Normal speech, Normal strength at 5/5 x4 extr, Normal tone, Normal affect - Studies Laboratory Data (last 24 hrs) 10/03/18 17:45: WBC 8.3, Hgb 13.5, Hct 39.4, Plt Count 379 10/03/18 17:45: Sodium 141, Potassium 4.0, BUN 4 L, Creatinine 0.70, Glucose 95 , Magnesium 2.1 Medications List Reviewed: Yes Assessment & Plan Discharge Plan: Home Plan to discharge in: 48 Hours Physician Review Additional Text: Impression: Shortness of breath secondary to COPD exacerbation with possible left-sided pneumonia Mild dehydration Mild pulmonary hypertension Carotid arterial disease without significant stenosis GERD Obesity, BMI 30 Plan: Shortness of breath secondary to COPD exacerbation with possible left-sided pneumonia: Will continue with COPD treatment. Continue with steroids, Brovana. Will wean off oxygen. Once the patient is off oxygen then the patient can be discharged home. Pulmonology plans to provide medication with samples of medication. professional services consultant to help with resources for follow up and medication. Patient on antibiotic therapy for possible pneumonia Mild dehydration: Will adjust IV fluids. Will monitor closely. Mild pulmonary hypertension: Echocardiogram shows mild pulmonary hypertension. EF 71%. Carotid arterial disease without significant stenosis: Carotid Doppler shows some plaque but no stenosis. Will start aspirin. Will check fasting lipid panel to determine if the patient will require medication GERD: Will start PPI. Obesity, BMI 30: Will provide lifestyle modification education. Time Spent Managing Pts Care (In Minutes): 55
[2018-10-04] MEDS: ACETAMINOPHEN 500 MG TAB PO PRN ×2 (15:57→20:42)
[2018-10-04] MEDS ORDERED: NA CHLORIDE 0.9% 1,000 ML IV SCH (16:00)
[2018-10-04] MEDS: predniSONE 20 MG TAB PO SCH (20:38)
[2018-10-05] MEDS: BENZONATATE 100 MG CAP PO PRN (00:28)
[2018-10-05] MEDS: ACETAMINOPHEN 500 MG TAB PO PRN ×2 (00:29→05:20)
[2018-10-05 06:03] LABS: Absolute Lymphocytes (CBC) 1.3 K/uL (0.7-4.9); Absolute Monocytes 0.3 K/uL (0.1-1.3); Absolute Neutrophil 7.8 K/uL (1.8-8.0); Basophils % 0.2 % (0-1.3); Hematocrit 33.3 % (36.0-45.0); Lymphocytes % 14.1 % (15.3-44.8); MCH 33.1 pg (27.0-35.0); MCV 97.2 fL (80-100); MPV 9.7 fL (7.6-11.3); Monocytes % 3.4 % (3.3-12.3); RBC Red Blood Cell Count 3.43 M/uL (3.86-4.86)
[2018-10-05 06:14] LABS: BUN Blood Urea Nitrogen 6 mg/dL (7-18); Bicarbonate 26 mmol/L (21-32); Glucose Level 139 mg/dL (74-106); HDL Cholesterol 51 mg/dL (40-60); LDL Cholesterol, Calculated 93 (<130); Magnesium 2.4 mg/dL (1.8-2.4); Potassium 4.4 mmol/L (3.5-5.1); Sodium Level 140 mmol/L (136-145); Thyroid Stimulating Hormone 0.588 uIU/mL (0.360-3.740)
[2018-10-05] MEDS ORDERED: PANTOPRAZOLE 40MG TABLET PO SCH (06:30)
[2018-10-05] MEDS: ARFORMOTEROL TARTRATE 15 MCG/2 ML VIAL.NEB NEB SCH (07:40)
[2018-10-05] MEDS: predniSONE 20 MG TAB PO SCH (08:02)
[2018-10-05] MEDS: levoFLOXacin 500 MG TAB PO SCH (08:02)
[2018-10-05] MEDS: GUAIFENESIN 600 MG SA TAB PO SCH (08:02)
[2018-10-05] MEDS: ASPIRIN EC 81 MG TAB PO SCH (08:02)
[2018-10-05] MEDS: ENOXAPARIN 40 MG/0.4 ML SQ SCH (08:02)
--- NOTE | 2018-10-05 09:24 | RAD REPORT ---
EXAM DESCRIPTION: RAD - Chest Pa And Lat (2 Views) - 10/05/2018 7:43 am CLINICAL HISTORY: followup copd Chest pain. COMPARISON: Chest Single View dated 10/03/2018; Chest Single View dated 05/21/2018; Chest Single View dated 03/09/2018; Chest Single View dated 02/13/2018 FINDINGS: Mild linear opacities are present in the left base, likely with a small left pleural effus ion, suspicious for mild aspiration or pneumonia. The heart is normal in size. No displaced fractures .
--- NOTE | 2018-10-05 11:34 | P.PN ---
Subjective Date of Service: 10/05/18 Primary Care Provider: [facility] Chief Complaint: COPD exacerbation Subjective: Improving (Patient is doing better shortness of breath has improved) Review of Systems Unremarkable Physical Examination - Vital Signs Temperature: 97.5 F Blood Pressure: 101/63 Pulse: 56 Respirations: 18 Pulse Ox (%): 100 - Physical Exam General: Alert, Oriented x3 Respiratory: Expiratory wheezes Cardiovascular: No edema, Normal pulses - Studies Medications List Reviewed: Yes Assessment & Plan - Problems (Diagnosis) (1) COPD exacerbation Onset Date: 10/14/16 Current Visit: No Status: Acute Plan: Patient is 52 years of age admitted with COPD exacerbation patient's saturation is satisfactory 93% on room air patient can be discharged home the cuffs 2 samples of Symbicort 160 from my office 2 puffs twice a day she does have a patient assistance program and discharged home on prednisone 10 mg twice a day 20. With 1 refill to take in the future if she has an exacerbation patient will not qualify for home O2 Physician Review Additional Text: Impression: Shortness of breath secondary to COPD exacerbation with possible left-sided pneumonia Mild dehydration Mild pulmonary hypertension Carotid arterial disease without significant stenosis GERD Obesity, BMI 30 Plan: Shortness of breath secondary to COPD exacerbation with possible left-sided pneumonia: Will continue with COPD treatment. Continue with steroids, Brovana. Will wean off oxygen. Once the patient is off oxygen then the patient can be discharged home. Pulmonology plans to provide medication with samples of medication. workforce services representative to help with resources for follow up and medication. Patient on antibiotic therapy for possible pneumonia Mild dehydration: Will adjust IV fluids. Will monitor closely. Mild pulmonary hypertension: Echocardiogram shows mild pulmonary hypertension. EF 71%. Carotid arterial disease without significant stenosis: Carotid Doppler shows some plaque but no stenosis. Will start aspirin. Will check fasting lipid panel to determine if the patient will require medication GERD: Will start PPI. Obesity, BMI 30: Will provide lifestyle modification education.
[2018-10-05 12:07] VITALS: BP 98/54; TEMP 97.8
--- NOTE | 2018-10-05 12:13 | P.DS ---
Admission Date: 10/03/18 Discharge Date: 10/05/18 Primary Care Provider: [facility] Disposition: ROUTINE DISCHARGE Discharge Condition: GOOD Reason for Admission: COPD exacerbation Consultations: Pulmonary-Dr. Brand Procedures: ECHO: Ejection fraction 71% LEFT VENTRICULAR WALL MOTION: NORMAL. DOPPLER/COLOR FLOW: MILD TRICUSPID REGURGITATION. MILD PULMONARY HYPERTENSION. ESTIMATED RIGHT VENTRICULAR SYSTOLIC PRESSURE 40mmHg. ESTIMATED RIGHT VENTRICULAR SYSTOLIC PRESESURE 15mmHg (ELEVATED). COMMENTS: NORMAL 2D ECHO. MILD TRICUSPID REGURGITATION. MILD PULMONARY HYPERTENSION. ELEVATED RIGHT ATRIAL PRESSURE. Carotid doppler: Small amount of plaque noted. No significant stenosis Medical Problem List: Shortness of breath secondary to COPD exacerbation also likely with left lower lobe pneumonia Mild dehydration Mild pulmonary hypertension Carotid arterial disease without significant stenosis GERD Obesity, BMI 30 Brief History of Present Illness: 52-year-old female present emergency room with increasing shortness of breath. Patient was admitted for COPD exacerbation with likely underlying pneumonia. Hospital Course: Patient presented with shortness of breath. Patient found to have COPD exacerbation with left lower lobe pneumonia. Patient evaluated by pulmonology. No further intervention was required. Patient improved. At discharge patient did not qualify for home oxygen. Patient with limited resources. At discharge samples of Symbicort 2 puffs twice daily will be provided. 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 Patient will continue with Pro air 2 puffs 3 times a day as needed for shortness of breath. At discharge she will also continue with prednisone 10 mg 1 pill twice daily for 10 days and Airduo 2 puffs twice daily. Recommendation is for the patient follow up with pulmonology in 1 week to continue to monitor her care and provide samples in the future. Education on COPD provided. At discharge patient will also be given Levaquin 500 mg daily for 5 days to cover for pneumonia. Recommendation to recheck chest x-ray in 2-4 weeks to monitor resolution. Patient may take [id number] medication for cough-Delsym and congestion-Mucinex as needed. Patient may need to limit her activities due to her COPD in the near future. Patient found to have underlying carotid arterial disease. No significant stenosis noted with mild pulmonary hypertension. At discharge she will continue with aspirin 81 mg daily. This can be monitored closely as an outpatient. Patient with GERD. Patient will continue with Prilosec over the counter once daily. Patient with obesity. BMI 30. Lifestyle modification education will be provided. Vital Signs/Physical Exam: Temp Pulse Resp BP Pulse Ox 97.8 F 78 18 98/54 L 96 10/05/18 12:00 10/05/18 12:00 10/05/18 12:00 10/05/18 12:00 10/05/18 12:00 General: Alert, In no apparent distress, Oriented x3, Cooperative HEENT: Atraumatic Neck: Supple Respiratory: Clear to auscultation bilaterally, Normal air movement Cardiovascular: Normal pulses, Regular rate/rhythm Gastrointestinal: Normal bowel sounds, Soft and benign, Non-distended, No tenderness, No masses, No rebound, No guarding Musculoskeletal: No erythema, No tenderness, No warmth Integumentary: No tenderness/swelling, No erythema, No warmth, No cyanosis Neurological: Normal speech, Normal strength at 5/5 x4 extr, Normal tone, Normal affect Laboratory Data at Discharge: WBC 9.5 K/uL (4.3-10.9) D 10/05/18 05:20 Hgb 11.3 g/dL (12.0-15.0) L 10/05/18 05:20 Hct 33.3 % (36.0-45.0) L 10/05/18 05:20 Plt Count 334 K/uL (152-406) 10/05/18 05:20 Sodium 140 mmol/L (136-145) 10/05/18 05:20 Potassium 4.4 mmol/L (3.5-5.1) 10/05/18 05:20 BUN 6 mg/dL (7-18) L 10/05/18 05:20 Creatinine 0.60 mg/dL (0.55-1.3) 10/05/18 05:20 Glucose 139 mg/dL (74-106) H 10/05/18 05:20 Magnesium 2.4 mg/dL (1.8-2.4) 10/05/18 05:20 Triglycerides 70 mg/dL (<150) 10/05/18 05:20 Cholesterol 158 mg/dL (<200) 10/05/18 05:20 HDL Cholesterol 51 mg/dL (40-60) 10/05/18 05:20 Cholesterol/HDL Ratio 3.10 10/05/18 05:20 Home Medications: Omeprazole Magnesium [Prilosec Otc] 20 mg PO DAILY 10/03/18 Albuterol Sulfate [Proair Hfa] 8.5 gm IH TID PRN #1 hfa.aer.ad 10/05/18 Fluticasone/Salmeterol [Airduo Respiclick 113-14 Mcg] 2 each IH BID #1 aer.pow.ba 10/05/18 levoFLOXacin [Levaquin*] 500 mg PO DAILY #5 tab 10/05/18 predniSONE [Deltasone*] 10 mg PO BID #20 tab 10/05/18 New Medications: Albuterol Sulfate [Proair Hfa] 8.5 gm IH TID PRN #1 hfa.aer.ad PRN Reason: Shortness Of Breath Fluticasone/Salmeterol [Airduo Respiclick 113-14 Mcg] 2 each IH BID #1 aer.pow.ba levoFLOXacin [Levaquin*] 500 mg PO DAILY #5 tab predniSONE [Deltasone*] 10 mg PO BID #20 tab Patient Discharge Instructions: 1. Patient will need to follow with a PCP in 1 week to follow up this hospitalization. 2. Patient presented with shortness of breath. Patient found to have COPD exacerbation with left lower lobe pneumonia. Patient evaluated by pulmonology. No further intervention was required. Patient improved. At discharge patient did not qualify for home oxygen. Patient with limited resources. At discharge samples of Symbicort 2 puffs twice daily will be provided. 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 Patient will continue with Pro air 2 puffs 3 times a day as needed for shortness of breath. At discharge she will also continue with prednisone 10 mg 1 pill twice daily for 10 days and Airduo 2 puffs twice daily. Recommendation is for the patient follow up with pulmonology in 1 week to continue to monitor her care and provide samples in the future. Education on COPD provided. At discharge patient will also be given Levaquin 500 mg daily for 5 days to cover for pneumonia. Recommendation to recheck chest x-ray in 2-4 weeks to monitor resolution. Patient may take ptzu-puk-[id number] medication for cough-Delsym and congestion-Mucinex as needed. Patient may need to limit her activities due to her COPD in the near future. 3. Patient found to have underlying carotid arterial disease. No significant stenosis noted with mild pulmonary hypertension. At discharge she will continue with aspirin 81 mg daily. This can be monitored closely as an outpatient. 4. Patient with GERD. Patient will continue with Prilosec over the counter once daily. 5. Patient with obesity. BMI 30. Lifestyle modification education will be provided. Diet: AHA Activity: Ad herbert Time spent managing pt's care (in minutes): 55
[2018-10-05 12:38] VITALS: O2SAT 97
[2018-10-05] MEDS: ALBUTEROL 2.5 MG/3 ML NEB SOL NEB PRN (13:35)
[2018-10-05] MEDS: IPRATROPIUM BROM 0.5MG/2.5ML NEB PRN (13:35)
== END 2018-10-05 14:20 | disposition home or self-care (01) | DRG 190 ==
LOC: ER 17:26 → 4TH 21:07
PROVIDERS: ADMIT Internal Medicine; ATTEND Family Medicine
DX: J44.1 Chronic obstructive pulmonary disease with (acute) exacerbation (principal); J18.9 Pneumonia, unspecified organism; J44.0 Chronic obstructive pulmonary disease with (acute) lower respiratory infection; I27.20 Pulmonary hypertension, unspecified; E86.0 Dehydration; K21.9 Gastro-esophageal reflux disease without esophagitis; E66.9 Obesity, unspecified; Z68.30 Body mass index [BMI] 30.0-30.9, adult; Z87.891 Personal history of nicotine dependence; R09.02 Hypoxemia; I77.9 Disorder of arteries and arterioles, unspecified
CPT/HCPCS: 36415; 71045; 71046; 80048; 80061; 82805; 83605; 83735; 83880; 84145; 84439; 84443; 85025; 87040; 93005; 93306; 93880; 94640; 94660; 94760; 96365; 96366; 96375; 99285; J0456; J0696; J1650; J2920; J2930; J3475; J7030; J7512; J7605

== ENCOUNTER 2018-12-20 11:52 | Observation (INO) | payer SELFPAY ==
[2018-12-20 12:47] LABS: Absolute Lymphocytes (CBC) 2.2 K/uL (0.7-4.9); Absolute Monocytes 0.6 K/uL (0.1-1.3); Basophils % 1.5 % (0-1.3); Eosinophils % 7.1 % (0-4.4); Hematocrit 36.4 % (36.0-45.0); Lymphocytes % 22.9 % (15.3-44.8); MPV 8.9 fL (7.6-11.3); Monocytes % 6.4 % (3.3-12.3); RBC Red Blood Cell Count 3.86 M/uL (3.86-4.86)
[2018-12-20] MEDS ORDERED: LEVALBUTEROL 1.25 MG/3 ML NEB ONE (12:50)
[2018-12-20] MEDS ORDERED: predniSONE 20 MG TAB ONE (12:50)
--- NOTE | 2018-12-20 12:58 | RAD REPORT ---
EXAM DESCRIPTION: Roxana Single View12/20/2018 12:51 pm CLINICAL HISTORY: sob COMPARISON: September 2018 FINDINGS: The lungs appear clear of acute infiltrate. The heart is normal size IMPRESSION: No acute abnormalities displayed
[2018-12-20 13:07] LABS: Protime INR 1.12
[2018-12-20 13:10] LABS: ALT/SGPT 17 U/L (12-78); AST/SGOT 11 U/L (15-37); Albumin 3.4 g/dL (3.4-5.0); Alkaline Phosphatase 99 U/L (45-117); BUN Blood Urea Nitrogen 4 mg/dL (7-18); Bicarbonate 26 mmol/L (21-32); Bilirubin Direct 0.1 mg/dL (0-0.2); Bilirubin Total 0.4 mg/dL (0.2-1.0); CKMB Creatine Kinase MB < 1.0 ng/mL (0.3-3.6); Creatine Phosphokinase 83 U/L (26-192); Glucose Level 118 mg/dL (74-106); Lipase 62 U/L (73-393); Magnesium 1.9 mg/dL (1.8-2.4); NT PRO-BNP 154 pg/mL (<125); Potassium 3.7 mmol/L (3.5-5.1); Protein, Total 7.7 g/dL (6.4-8.2); Sodium Level 137 mmol/L (136-145); Troponin (Emerg Dept Use Only) < 0.02 ng/mL (0.0-0.045)
--- NOTE | 2018-12-20 13:34 | EDPHYS ---
Physician Documentation [facility] Name: Elizabeth Ny Age: 53 yrs Sex: Female : 1965 Arrival Date: 12/20/2018 Time: 11:55 Bed 2 Private MD: ED Physician Dean Lobato HPI: 12/20 13:23 This 53 yrs old Female presents to ER via EMS with complaints of SOB for kdr about four fays. 13:23 The patient has shortness of breath at rest, with light activity. Onset: The kdr symptoms/episode began/occurred gradually, 1 week(s) ago. Duration: The symptoms are continuous, and are steadily getting worse. The patient's shortness of breath is aggravated by exertion, light activity, talking, walking, is alleviated by rest, sitting up. Associated signs and symptoms: Pertinent positives: Have fever a few days ago but none recently. Severity of symptoms: At their worst the symptoms were moderate severe incapacitating just prior to arrival, in the emergency department the symptoms have improved markedly, Had been given medications by EMS. The patient has experienced similar episodes in the past, chronically. The patient has not recently seen a physician. 13:23 Patient reported to have 88% sat on RA. 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 - Social history:: Smoking status: Patient/guardian denies using tobacco. - Ebola Screening: : No symptoms or risks identified at this time. ROS: 13:23 Constitutional: Negative for chills, and weight loss - recently but reports fever a few kdr days ago Eyes: Negative for injury, pain, redness, and discharge, ENT: Negative for injury, pain, and discharge, Neck: Negative for injury, pain, and swelling, Cardiovascular: Negative for chest pain, palpitations, and edema, Abdomen/GI: Negative for abdominal pain, nausea, vomiting, diarrhea, and constipation, Back: Negative for injury and pain, : Negative for injury, bleeding, discharge, and swelling, MS/Extremity: Negative for injury and deformity, Skin: Negative for injury, rash, and discoloration, Neuro: Negative for headache, weakness, numbness, tingling, and seizure activity. Psych: Negative for depression, anxiety, suicide ideation, homicidal ideation, and hallucinations, Allergy/Immunology: Negative for hives, rash, and allergies, Endocrine: Negative for neck swelling, polydipsia, polyuria, polyphagia, and marked weight changes, Hematologic/Lymphatic: Negative for swollen nodes, abnormal bleeding, and unusual bruising. 13:23 Respiratory: Positive for cough, with no reported sputum, shortness of breath, at rest. wheezing, expiratory. Exam: 13:23 Constitutional: This is a well developed, well nourished patient who is awake, alert, kdr and in no acute distress. Head/Face: Normocephalic, atraumatic. Eyes: Pupils equal round and reactive to light, extra-ocular motions intact. Lids and lashes normal. Conjunctiva and sclera are non-icteric and not injected. Cornea within normal limits. Periorbital areas with no swelling, redness, or edema. Neck: Trachea midline, no thyromegaly or masses palpated, and no cervical lymphadenopathy. Supple, full range of motion without nuchal rigidity, or vertebral point tenderness. No Meningismus. Chest/axilla: Normal chest wall appearance and motion. Nontender with no deformity. No lesions are appreciated. Cardiovascular: Regular rate and rhythm with a normal S1 and S2. No gallops, murmurs, or rubs. Normal PMI, no JVD. No pulse deficits. Abdomen/GI: Soft, non-tender, with normal bowel sounds. No distension or tympany. No guarding or rebound. No evidence of tenderness throughout. Back: No spinal tenderness. No costovertebral tenderness. Full range of motion. Skin: Warm, dry with normal turgor. Normal color with no rashes, no lesions, and no evidence of cellulitis. MS/ Extremity: Pulses equal, no cyanosis. Neurovascular intact. Full, normal range of motion. Neuro: Awake and alert, GCS 15, oriented to person, place, time, and situation. Cranial nerves II-XII grossly intact. Motor strength 5/5 in all extremities. Sensory grossly intact. Cerebellar exam normal. Normal gait. Psych: Awake, alert, with orientation to person, place and time. Behavior, mood, and affect are within normal limits. 13:23 Respiratory: mild respiratory distress is noted, Respirations: labored breathing, that is mild, Breath sounds: Respiratory rate: 30 - 40 Vital Signs: 12:01 BP 125 / 72; Pulse 107; Resp 40; Temp 98.8; Pulse Ox 94% on R/A; Weight 74.39 kg; ph Height 5 ft. 3 in. (160.02 cm); Pain 0/10; 12:46 BP 109 / 51; Pulse 94; Resp 30; Pulse Ox 100% on Nebulizer Mask; ph 14:00 BP 100 / 67; Pulse 97; Resp 26; Pulse Ox 95% on R/A; ph 15:11 BP 110 / 57; Pulse 91; Resp 22; Pulse Ox 93% on R/A; ph 16:15 BP 103 / 60; Pulse 86; Resp 18; Temp 98.0; Pulse Ox 93% on R/A; ph 17:00 BP 111 / 64; Pulse 89; Resp 24; Pulse Ox 94% on R/A; ph 18:19 BP 104 / 62; Pulse 84; Resp 22; Temp 98.0; Pulse Ox 95% on R/A; ph 12:01 Body Mass Index 29.05 (74.39 kg, 160.02 cm) ph MDM: 13:23 Data reviewed: vital signs, nurses notes, EKG. kdr 13:33 Patient medically screened. [facility] 12/20 12:14 Order name: Basic Metabolic Panel; Complete Time: 06:29 [facility] 12/20 12:14 Order name: CBC with Diff; Complete Time: 13:18 [facility] 12/20 12:14 Order name: LFT's; Complete Time: 06:29 [facility] 12/20 12:14 Order name: Magnesium; Complete Time: 06:29 [facility] 12/20 12:14 Order name: NT PRO-BNP; Complete Time: 06:29 [facility] 12/20 12:14 Order name: PT-INR; Complete Time: 13:18 [facility] 12/20 12:14 Order name: Troponin (emerg Dept Use Only); Complete Time: 06:29 [facility] 12/20 12:23 Order name: Blood Culture Adult (2) [facility] 12/20 12:23 Order name: Ckmb; Complete Time: 13:18 [facility] 12/20 12:23 Order name: CPK; Complete Time: 13:18 [facility] 12/20 12:23 Order name: Lactate; Complete Time: 13:18 [facility] 12/20 12:23 Order name: Lipase; Complete Time: 13: [facility] 12/20 12:23 Order name: Procalcitonin; Complete Time: 06:29 [facility] 12/20 12:23 Order name: Ptt, Activated; Complete Time: 13: [facility] 12/20 12:14 Order name: XRAY Chest (1 view); Complete Time: 13:18 [facility] 12/20 12:14 Order name: EKG; Complete Time: 12:15 [facility] 12/20 12:14 Order name: Cardiac monitoring; Complete Time: 12: [facility] 12/20 12:14 Order name: EKG - Nurse/Tech; Complete Time: 12: [facility] 12/20 12:14 Order name: IV Saline Lock; Complete Time: 12:36 [facility] 12/20 12:14 Order name: Labs collected and sent; Complete Time: 12: [facility] 12/20 12:14 Order name: O2 Per Protocol; Complete Time: 12: [facility] 12/20 12:14 Order name: O2 Sat Monitoring; Complete Time: 12: [facility] 12/20 12:23 Order name: Urine Microscopic Only; Complete Time: 06:29 [facility] 12/20 12:23 Order name: Accucheck; Complete Time: 12:36 [facility] 12/20 12:23 Order name: IV Saline Lock - Large Bore; Complete Time: 12:36 [facility] 12/20 12:23 Order name: Urine Dipstick-Ancillary (obtain specimen); Complete Time: 15:19 [facility] 12/20 15:21 Order name: Urine Dipstick--Ancillary (enter results); Complete Time: 06:29 em1 Administered Medications: 12:36 CANCELLED (Inappropriate at this time): NS 0.9% (30 ml/kg) 30 ml/kg IV at bolus once; Sepsis Protocol 12:45 Drug: Xopenex (3) 1.25 mg Route: Inhalation; ph 14:00 Follow up: Response: No adverse reaction; Marked relief of symptoms ph 12:46 Drug: predniSONE 60 mg Route: PO; ph 14:00 Follow up: Response: No adverse reaction; Marked relief of symptoms ph Disposition: 12/20/18 13:33 Hospitalization ordered by Rosa Grace for Observation. Preliminary diagnosis is COPD Exacerbation, SOB. - Bed requested for Telemetry/MedSurg (observation). - Status is Observation. ph - Condition is Fair. - Problem is an acute exacerbation. - Symptoms have improved. UTI on Admission? No Signatures: Dispatcher [employer] EDMS Dean Lobato MD MD kdr Hernandez Candelaria em1 Edna Manuel RN RN ph Corrections: (The following items were deleted from the chart) 12:36 12:23 NS 0.9% (30 ml/kg) 30 ml/kg IV at bolus once; Sepsis Protocol ordered. kdr ph 15:24 13:33 Hospitalization Ordered by Patricia Isaac MD for Observation. Preliminary kdr diagnosis is COPD Exacerbation, SOB. Bed requested for Telemetry/MedSurg (observation). Status is Observation. Condition is Fair. Problem is an acute exacerbation. Symptoms have improved. UTI on Admission? No. kdr 15:35 15:24 12/20/2018 13:33 Hospitalization Ordered by Rosa Grace MD for Observation. em1 Preliminary diagnosis is COPD Exacerbation, SOB. Bed requested for Telemetry/MedSurg (observation). Status is Observation. Condition is Fair. Problem is an acute exacerbation. Symptoms have improved. UTI on Admission? No. kdr 18:21 15:35 12/20/2018 13:33 Hospitalization Ordered by Rosa Grace MD for Observation. ph Preliminary diagnosis is COPD Exacerbation, SOB. Bed requested for Telemetry/MedSurg (observation). Status is Observation. Condition is Fair. Problem is an acute exacerbation. Symptoms have improved. UTI on Admission? No. em1
--- NOTE | 2018-12-20 13:34 | ER ---
Nurse's Notes [facility] Name: Elizabeth Ny Age: 53 yrs Sex: Female : 1965 Arrival Date: 12/20/2018 Time: 11:55 Bed 2 Private MD: Diagnosis: COPD Exacerbation, SOB Presentation: 12/20 11:58 Presenting complaint: EMS states: C/O breathing difficulty, hx of COPD, reports having ph flu like symptoms recently, Spo2 88% RA, no home oxygen used, respiratory rate approx 40 bpm, pt reports taking 3 breathing tx at home, placed on C-PAP by EMS and additional neb tx administered, solu-medrol also given, Spo2 improved to 99% on C-PAP. Transition of care: patient was not received from another setting of care. Onset of symptoms was December 20, 2018. Risk Assessment: Do you want to hurt yourself or someone else? Patient reports no desire to harm self or others. Initial Sepsis Screen: Does the patient meet any 2 criteria? RR > 20 per min. Does the patient have a suspected source of infection? Yes: Productive cough/pneumonia. Care prior to arrival: Medication(s) given: Albuterol Neb Atrovent Neb Solu-Medrol 125 IV initiated. 18 GA, in the right hand. 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 - Social history:: Smoking status: Patient/guardian denies using tobacco. - Ebola Screening: : No symptoms or risks identified at this time. Screenin:02 Abuse screen: Denies threats or abuse. Denies injuries from another. Nutritional ph screening: No deficits noted. Tuberculosis screening: No symptoms or risk factors identified. Fall Risk No fall in past 12 months (0 pts). No secondary diagnosis (0 pts). IV access (20 points). Ambulatory Aid- None/Bed Rest/Nurse Assist (0 pts). Gait- Weak (10 pts.). Mental Status- Oriented to own ability (0 pts). Total Culver Fall Scale indicates Low Risk Score (25-44 pts). Fall prevention measures have been instituted. Side Rails Up X 2 Placed close to Nursing Station As available Patient and Family Educated on Fall Prevention Program and strategies. Assessment: 12:15 General: Appears in no apparent distress. uncomfortable, Behavior is calm, cooperative, ph appropriate for age, Denies fever, chills. Pain: Denies pain. Neuro: Level of Consciousness is awake, alert, obeys commands, Oriented to person, place, time, situation. Cardiovascular: Reports shortness of breath, Denies chest pain, Capillary refill < 3 seconds in bilateral fingers Patient's skin is warm and dry. Rhythm is sinus tachycardia. Respiratory: Reports shortness of breath at rest cough that is Airway is patent Respiratory effort is labored, Respiratory pattern is tachypnea Breath sounds with wheezes bilaterally. GI: No signs and/or symptoms were reported involving the gastrointestinal system. Derm: Skin is intact, Skin is pink, warm \T\ dry. Musculoskeletal: Circulation, motion, and sensation intact. Range of motion: intact in all extremities. 13:30 Reassessment: Patient appears in no apparent distress at this time. Patient and/or ph family updated on plan of care and expected duration. Pain level reassessed. Patient is alert, oriented x 3, equal unlabored respirations, skin warm/dry/pink. Work of breathing appears to have improved, respirations down to 26 bpm, pt reports that SOB is improving, VSS. 14:40 Reassessment: Patient appears in no apparent distress at this time. Patient and/or ph family updated on plan of care and expected duration. Pain level reassessed. Patient is alert, oriented x 3, equal unlabored respirations, skin warm/dry/pink. Pt ambulated to and from restroom w/ steady gait, reports slight SOB but states that that is normal for her, Spo2 upon returning to room 96% RA, HR 107, respirations 24. 16:00 Reassessment: Patient appears in no apparent distress at this time. No changes from previously documented assessment. Patient and/or family updated on plan of care and expected duration. Pain level reassessed. Patient is alert, oriented x 3, equal unlabored respirations, skin warm/dry/pink. 17:00 Reassessment: Patient appears in no apparent distress at this time. Patient and/or ph family updated on plan of care and expected duration. Pain level reassessed. Patient is alert, oriented x 3, equal unlabored respirations, skin warm/dry/pink. Awaiting admit orders from hospitalist prior to calling report to 2nd floor Patient denies pain at this time. Patient states feeling better. Patient states symptoms have improved. 18:10 Reassessment: Patient appears in no apparent distress at this time. Patient and/or ph family updated on plan of care and expected duration. Pain level reassessed. Patient is alert, oriented x 3, equal unlabored respirations, skin warm/dry/pink. Report called to Nidia CASAREZ, pt taken to 2nd floor via wheelchair. Vital Signs: 12:01 BP 125 / 72; Pulse 107; Resp 40; Temp 98.8; Pulse Ox 94% on R/A; Weight 74.39 kg; ph Height 5 ft. 3 in. (160.02 cm); Pain 0/10; 12:46 BP 109 / 51; Pulse 94; Resp 30; Pulse Ox 100% on Nebulizer Mask; ph 14:00 BP 100 / 67; Pulse 97; Resp 26; Pulse Ox 95% on R/A; ph 15:11 BP 110 / 57; Pulse 91; Resp 22; Pulse Ox 93% on R/A; ph 16:15 BP 103 / 60; Pulse 86; Resp 18; Temp 98.0; Pulse Ox 93% on R/A; ph 17:00 BP 111 / 64; Pulse 89; Resp 24; Pulse Ox 94% on R/A; ph 18:19 BP 104 / 62; Pulse 84; Resp 22; Temp 98.0; Pulse Ox 95% on R/A; ph 12:01 Body Mass Index 29.05 (74.39 kg, 160.02 cm) ph ED Course: 11:55 Patient arrived in ED. em1 11:58 Edna Manuel, RN is Primary Nurse. ph 12:01 Triage completed. ph 12:05 Arm band placed on Patient placed in an exam room, on a stretcher. ph 12:05 Patient has correct armband on for positive identification. Bed in low position. Call light in reach. Side rails up X 1. supervisor sulfuric acid plant on. Pulse ox on. NIBP on. Warm blanket given. 12:10 Dean Lobato MD is Attending Physician. kdr 12:10 EKG done, by apprentice instrument technician. reviewed by Dean Lobato MD. at1 12:48 X-ray completed. Portable x-ray completed in exam room. Patient tolerated procedure mh1 well. 12:49 XRAY Chest (1 view) In Process Unspecified. EDMS 13:32 Patricia Isaac MD is Hospitalizing Provider. kdr 15:24 Hospitalizing Provider role handed off by Patricia Isaac MD kdr 15:24 Rosa Grace MD is Hospitalizing Provider. kdr 18:15 No provider procedures requiring assistance completed. Patient admitted, IV remains in ph place. Administered Medications: 12:36 CANCELLED (Inappropriate at this time): NS 0.9% (30 ml/kg) 30 ml/kg IV at bolus once; Sepsis Protocol 12:45 Drug: Xopenex (3) 1.25 mg Route: Inhalation; ph 14:00 Follow up: Response: No adverse reaction; Marked relief of symptoms ph 12:46 Drug: predniSONE 60 mg Route: PO; ph 14:00 Follow up: Response: No adverse reaction; Marked relief of symptoms ph Outcome: 13:33 Decision to Hospitalize by Provider. kdr 18:21 Patient left the ED. 18:21 Admitted to [facility] accompanied by tech, via wheelchair, with chart, Report called to mike Jacob RN 18:21 Condition: good 18:21 Instructed on the need for admit. Signatures: Dispatcher [employer] EDDC Dean Lobato MD MD [facility] Masha Silva 1 Hernandez Candelaria 1 Kymberly Brock, displayer EKG [facility]1 Edna Manuel, RN RN
[2018-12-20 15:29] LABS: Urine Bacteria <20 /HPF (<20); Urine Culture Reflex Order NOT NEEDED; Urine RBC NONE SEEN /HPF (NONE SEEN)
[2018-12-20 15:30] LABS: Urine Blood NEGATIVE (NEG); Urine Glucose NEGATIVE (NEG); Urine Protein NEGATIVE (NEG); Urine Specific Gravity 1.015 (1.005-1.030); Urine pH 6.5 (5.0-7.0)
--- NOTE | 2018-12-20 15:45 | EKG ---
Test Date: 2018-12-20 Test Time: 11:59:02 Inter Com Installer: MIGUEL MEASUREMENT RESULTS: Intervals: Rate: 106 OH: 120 QRSD: 84 QT: 350 QTc: 464 [place]: P: 77 OH: 120 QRS: 84 T: 39 INTERPRETIVE STATEMENTS: Sinus tachycardia Otherwise normal ECG Compared to ECG 10/03/2018 19:35:00 Sinus rhythm no longer present Atrial abnormality no longer present Electronically Signed On 12-20-18 15:44:36 HYDRAULIC ASSEMBLER by Jose Alvarado
--- NOTE | 2018-12-20 17:37 | P.HP ---
Certification for Inpatient Patient admitted to: Observation With expected LOS: <2 Midnights Practitioner: I am a practitioner with admitting privileges, knowledge of patient current condition, hospital course, and medical plan of care. Services: Services provided to patient in accordance with Admission requirements found in Title 42 Section 412.3 of the Code of Federal Regulations Patient History Date of Service: 12/20/18 Reason for admission: Dyspnea History of Present Illness: This is a 49-year-old female with history of COPD, alcohol abuse former smoker admitted for COPD exacerbation. Per patient, she was started having a lot trouble breathing, could not catch her breath, felt like she was going to pass out. She sat in a car called the EMS. EMS came and brought her to the ER. In the ER, she was satting 88% on room air, she was given oxygen, breathing treatments. She remained tachypneic after nebulizer treatments and therefore was admitted for observation. At the time of my exam, she was alert oriented x3 , on room air, satting well and in no acute distress. Allergies codeine [Codeine] Adverse Reaction (Mild, Verified 10/14/16 05:31) Hives/Rash Home Medications: Omeprazole Magnesium [Prilosec Otc] 20 mg PO DAILY 10/03/18 Albuterol Sulfate [Proair Hfa] 8.5 gm IH TID PRN #1 hfa.aer.ad 10/05/18 Fluticasone/Salmeterol [Airduo Respiclick 113-14 Mcg] 2 each IH BID #1 aer.pow.ba 10/05/18 levoFLOXacin [Levaquin*] 500 mg PO DAILY #5 tab 10/05/18 predniSONE [Deltasone*] 10 mg PO BID #20 tab 10/05/18 - Past Medical/Surgical History Diabetic: No -: COPD -: Alcohol abuse -: Former tobacco abuse -: Tubal ligation -: left leg currently broken Psychosocial/ Personal History: She is , she has 2 children. She does not work. - Family History Mother -: Other (see notes) Notes: No health problems at this time. Father -: Stroke, Cancer Notes: bone cancer - Social History Alcohol use: Yes CD- Drugs: No Caffeine use: Yes Review of Systems 10-point ROS is otherwise unremarkable Physical Examination - Physical Exam General: Alert, In no apparent distress, Oriented x3 HEENT: Atraumatic, PERRLA, Mucous membr. moist/pink, EOMI, Sclerae nonicteric Neck: Supple, 2+ carotid pulse no bruit, No LAD, Without JVD or thyroid abnormality Respiratory: Clear to auscultation bilaterally, Normal air movement Cardiovascular: Regular rate/rhythm, Normal S1 S2 Gastrointestinal: Normal bowel sounds, No tenderness Musculoskeletal: No tenderness Integumentary: No rashes Neurological: Normal gait, Normal speech, Normal strength at 5/5 x4 extr, Normal tone, Normal affect Lymphatics: No axilla or inguinal lymphadenopathy - Studies Laboratory Data (last 24 hrs) 12/20/18 12:20: APTT 33.6 12/20/18 12:20: Lipase 62 L 12/20/18 12:20: PT 13.2 H, INR 1.12 12/20/18 12:20: WBC 9.6, Hgb 12.4, Hct 36.4, Plt Count 426 H 12/20/18 12:20: Sodium 137, Potassium 3.7, BUN 4 L, Creatinine 0.60, Glucose 118 H, Magnesium 1.9 D, Total Bilirubin 0.4, AST 11 L, ALT 17, Alkaline Phosphatase 99 Assessment and Plan - Problems (Diagnosis) (1) COPD exacerbation Onset Date: 10/04/18 Current Visit: No Status: Acute (2) SOB (shortness of breath) Onset Date: 10/14/16 Current Visit: No Status: Acute (3) COPD (chronic obstructive pulmonary disease) Onset Date: 05/22/18 Current Visit: No Status: Chronic Qualifiers: (4) Alcohol abuse Onset Date: 01/31/17 Current Visit: No Status: Chronic (5) Former smoker Onset Date: 01/31/17 Current Visit: No Status: Chronic (6) GERD (gastroesophageal reflux disease) Current Visit: No Status: Chronic Qualifiers: - Plan Patient Problems: COPD exacerbation (Acute 10/04/18) J44.1 SOB (shortness of breath) (Acute 10/14/16) R06.02 COPD (chronic obstructive pulmonary disease) (Chronic 05/22/18) J44.9 Tobacco smoke exposure in patient's home (Chronic) Z77.22 Alcohol abuse (Chronic 01/31/17) F10.10 Former smoker (Chronic 01/31/17) GERD (gastroesophageal reflux disease) (Chronic) K21.9 Will admit patient for observation overnight. Provide oxygen as needed, breathing treatments scheduled. Chest x-rays cleared, therefore no need for antibiotics at this time. No wheezing on exam, therefore will not provide IV steroids at this time. DVT prophylaxis: Lovenox GI prophylaxis: Home medications, once reconciled Diet: Regular Disposition: Pending symptomatic improvement, observation overnight. Likely discharge home in the next 24-48 hr - Advance Directives Does patient have a Living Will: No Does patient have a Durable POA for Healthcare: No Time Spent Managing Pts Care (In Minutes): 55
[2018-12-20] MEDS ORDERED: ACETAMINOPHEN 500 MG TAB PO PRN (19:38)
[2018-12-20] MEDS ORDERED: ONDANSETRON 4 MG/2 ML VIAL IV PRN (19:38)
[2018-12-20 20:16] VITALS: BMI 29.0
[2018-12-20] MEDS: ALBUTEROL 2.5 MG/3 ML NEB SOL NEB SCH (20:40)
[2018-12-20] MEDS: IPRATROPIUM BROM 0.5MG/2.5ML NEB SCH (20:40)
[2018-12-21] MEDS: IPRATROPIUM BROM 0.5MG/2.5ML NEB SCH ×2 (01:50→08:05)
[2018-12-21] MEDS: ALBUTEROL 2.5 MG/3 ML NEB SOL NEB SCH ×2 (01:50→08:05)
[2018-12-21 02:41] VITALS: O2SAT 94
[2018-12-21 05:59] LABS: Absolute Lymphocytes (CBC) 1.4 K/uL (0.7-4.9); Absolute Monocytes 0.4 K/uL (0.1-1.3); Absolute Neutrophil 7.2 K/uL (1.8-8.0); Basophils % 0.4 % (0-1.3); Hematocrit 35.2 % (36.0-45.0); MPV 8.8 fL (7.6-11.3); Monocytes % 4.6 % (3.3-12.3); RBC Red Blood Cell Count 3.77 M/uL (3.86-4.86)
[2018-12-21 06:12] LABS: ALT/SGPT 14 U/L (12-78); AST/SGOT 7 U/L (15-37); Albumin 3.3 g/dL (3.4-5.0); Alkaline Phosphatase 92 U/L (45-117); BUN Blood Urea Nitrogen 8 mg/dL (7-18); Bicarbonate 25 mmol/L (21-32); Bilirubin Total 0.2 mg/dL (0.2-1.0); Glucose Level 133 mg/dL (74-106); Phosphorus 3.4 mg/dL (2.5-4.9); Protein, Total 7.6 g/dL (6.4-8.2); Sodium Level 136 mmol/L (136-145)
[2018-12-21] MEDS ORDERED: INFLUENZA VACCINE (for 3y+) 0.5 ML DOSE IMVAC ONE (08:00)
[2018-12-21 09:36] VITALS: BP 121/58; TEMP 99.2
--- NOTE | 2018-12-21 13:40 | P.SSS ---
Patient History Date of Service: 12/21/18 Reason for admission: Dyspnea History of Present Illness: This is a 49-year-old female with history of COPD, alcohol abuse former smoker admitted for COPD exacerbation. Per patient, she was started having a lot trouble breathing, could not catch her breath, felt like she was going to pass out. She sat in a car called the EMS. EMS came and brought her to the ER. In the ER, she was satting 88% on room air, she was given oxygen, breathing treatments. She remained tachypneic after nebulizer treatments and therefore was admitted for observation. At the time of my exam, she was alert oriented x3 , on room air, satting well and in no acute distress. Allergies codeine [Codeine] Adverse Reaction (Mild, Verified 12/20/18 19:55) Hives/Rash Home Medications: RX: Omeprazole Magnesium [Prilosec Otc] 20 mg PO DAILY 10/03/18 RX: Albuterol Sulfate [Proair Hfa] 8.5 gm IH TID PRN #1 hfa.aer.ad 10/05/18 RX: Fluticasone/Salmeterol [Airduo Respiclick 113-14 Mcg] 2 each IH BID #1 aer.pow.ba 10/05/18 RX: predniSONE [Deltasone*] 10 mg PO BID #20 tab 10/05/18 RX: predniSONE [Deltasone*] 10 mg PO BID #30 tab 12/21/18 - Past Medical/Surgical History Has patient received pneumonia vaccine in the past: No Diabetic: No -: COPD -: Alcohol abuse -: Former tobacco abuse -: Tubal ligation -: left ankle currently broken ( may 20, 2017) Psychosocial/ Personal History: She is , she has 2 children. She does not work. - Family History Mother -: Other (see notes) Notes: No health problems at this time. Father -: Stroke, Cancer Notes: bone cancer - Social History Smoking Status: Former smoker Alcohol use: Yes CD- Drugs: No Caffeine use: Yes Place of Residence: Home Review of Systems 10-point ROS is otherwise unremarkable Physical Examination - Vital Signs Temperature: 99.2 F Blood Pressure: 121/58 Pulse: 93 Respirations: 18 Pulse Ox (%): 97 - Physical Exam General: Alert, In no apparent distress, Oriented x3 HEENT: Atraumatic, PERRLA, Mucous membr. moist/pink, EOMI, Sclerae nonicteric Neck: Supple, 2+ carotid pulse no bruit, No LAD, Without JVD or thyroid abnormality Respiratory: Clear to auscultation bilaterally, Normal air movement Cardiovascular: Regular rate/rhythm, Normal S1 S2 Gastrointestinal: Normal bowel sounds, No tenderness Musculoskeletal: No tenderness Integumentary: No rashes Neurological: Normal gait, Normal speech, Normal strength at 5/5 x4 extr, Normal tone, Normal affect Lymphatics: No axilla or inguinal lymphadenopathy - Diagnosis (Problem(s)) (1) COPD exacerbation Onset Date: 10/04/18 Status: Acute (2) SOB (shortness of breath) Onset Date: 10/14/16 Status: Acute (3) COPD (chronic obstructive pulmonary disease) Onset Date: 05/22/18 Status: Chronic Qualifiers: (4) Alcohol abuse Onset Date: 01/31/17 Status: Chronic (5) Former smoker Onset Date: 01/31/17 Status: Chronic (6) GERD (gastroesophageal reflux disease) Status: Chronic Qualifiers: Treatment Summary: Patient was admitted for observation overnight for COPD exacerbation. She remained stable overnight. She received no antibiotics, as there is no evidence of any infection/pneumonia and chest x-ray. Physical exam unremarkable. At the time of discharge, patient was alert oriented x3, in no acute distress and hemodynamically stable. She was ambulating without any problems, satting well on room air and was tolerating a diet. She is asymptomatic. Patient discharged home in a stable manner. - Disposition Discharge Date: 12/21/18 Disposition: ROUTINE DISCHARGE Condition: GOOD Patient Discharge Instructions: Please follow up with your primary care physician in 2-3 days. Please return to the Emergency room for worsening symptoms. Diet: AHA Activity: Ad herbert Time Spent Managing Pts Care (In Minutes): 55
== END 2018-12-21 11:19 | disposition home or self-care (01) ==
LOC: ER 11:52 → ERHOLD 15:23 → 2ND 18:08
PROVIDERS: ADMIT Family Medicine; ATTEND Family Medicine
DX: J44.1 Chronic obstructive pulmonary disease with (acute) exacerbation (principal); F10.10 Alcohol abuse, uncomplicated; K21.9 Gastro-esophageal reflux disease without esophagitis; Z87.891 Personal history of nicotine dependence
CPT/HCPCS: 36415; 71045; 80048; 80053; 80076; 81003; 81015; 82550; 82553; 83605; 83690; 83735; 83880; 84100; 84145; 84484; 85025; 85610; 85730; 87040; 93005; 94640; 94760; 99285; G0378; J7512

== ENCOUNTER 2019-02-09 05:47 | Inpatient (IN) | payer SELFPAY ==
[2019-02-09 06:25] LABS: Arterial Blood Carboxyhemoglob 1.2 % (0-1.5); Blood Gas Oxyhemoglobin 53.4 % (94-97); Blood O2 Saturation 54.3 % (92-98.5)
[2019-02-09 06:28] LABS: Absolute Lymphocytes (CBC) 2.3 K/uL (0.7-4.9); Absolute Monocytes 0.6 K/uL (0.1-1.3); Basophils % 1.2 % (0-1.3); Eosinophils % 17.7 % (0-4.4); Hematocrit 40.2 % (36.0-45.0); Lymphocytes % 27.3 % (15.3-44.8); Monocytes % 6.8 % (3.3-12.3); Protime INR 1.04; RBC Red Blood Cell Count 4.21 M/uL (3.86-4.86)
[2019-02-09 06:42] LABS: ALT/SGPT 14 U/L (12-78); AST/SGOT 14 U/L (15-37); Albumin 3.6 g/dL (3.4-5.0); Alkaline Phosphatase 98 U/L (45-117); BUN Blood Urea Nitrogen 4 mg/dL (7-18); Bicarbonate 28 mmol/L (21-32); Bilirubin Direct < 0.1 mg/dL (0-0.2); Bilirubin Total 0.3 mg/dL (0.2-1.0); Glucose Level 110 mg/dL (74-106); Magnesium 2.1 mg/dL (1.8-2.4); NT PRO-BNP 43 pg/mL (<125); Potassium 3.8 mmol/L (3.5-5.1); Protein, Total 7.8 g/dL (6.4-8.2); Sodium Level 138 mmol/L (136-145); Troponin (Emerg Dept Use Only) < 0.02 ng/mL (0.0-0.045)
[2019-02-09] MEDS ORDERED: NA CHLORIDE 0.9% 1,000 ML ONE (06:48)
[2019-02-09] MEDS ORDERED: ALBUTEROL 2.5 MG/3 ML NEB SOL ONE (06:48)
[2019-02-09] MEDS ORDERED: predniSONE 20 MG TAB ONE (06:48)
[2019-02-09] MEDS ORDERED: ASPIRIN 81 MG CHEWABLE TABLET ONE (06:48)
[2019-02-09] MEDS ORDERED: FAMOTIDINE 20 MG TAB ONE (06:48)
[2019-02-09 07:53] LABS: Platelet Estimate INCR
[2019-02-09 07:54] LABS: Blood Morphology Comment NOT SEEN (NOT SEEN)
--- NOTE | 2019-02-09 08:09 | RAD REPORT ---
EXAM DESCRIPTION: Roxana Single View02/09/2019 7:06 am CLINICAL HISTORY: Chest pain COMPARISON: November 2018 FINDINGS: Lungs are hyperaerated. The lungs appear clear of acute infiltrate. The heart is normal s ize IMPRESSION: No acute abnormalities displayed. If patient's symptoms persist PA and lateral chest se cecilia would be recommended
--- NOTE | 2019-02-09 08:19 | ER ---
Nurse's Notes [facility] Name: Elizabeth Ny Age: 53 yrs Sex: Female : 1965 Arrival Date: 02/09/2019 Time: 05:53 Bed 4 Private MD: Diagnosis: Chronic obstructive pulmonary disease with (acute) exacerbation Presentation: 02/09 05:40 Presenting complaint: EMS states: Pt reports cough x 3 weeks and increased breathing tl2 difficulty x 3 days. Breathing treatments not helping. Pt given A\\T\\A, solumedrol 125. Pt was 83% RA before breathing treatment. Transition of care: patient was not received from another setting of care. Onset of symptoms was February 06, 2019. Risk Assessment: Do you want to hurt yourself or someone else? Patient reports no desire to harm self or others. Initial Sepsis Screen: Does the patient meet any 2 criteria? No. Patient's initial sepsis screen is negative. Does the patient have a suspected source of infection? No. Patient's initial sepsis screen is negative. Care prior to arrival: IV initiated. 20 GA, in the right antecubital area, Med neb given. 05:40 Method Of Arrival: EMS: [facility] tl2 05:40 Acuity: CAROLYN 2 tl2 05:40 Acuity: CARLOYN 1 tl2 Triage Assessment: 05:40 General: Appears in no apparent distress. uncomfortable, Behavior is cooperative, tl2 appropriate for age, anxious. Pain: Denies pain. Neuro: Level of Consciousness is awake, alert, obeys commands, Oriented to person, place, time, situation. Cardiovascular: Denies chest pain. Respiratory: Reports shortness of breath cough that is labored breathing Onset: The symptoms/episode began/occurred 2 days ago, the patient has moderate shortness of breath. GI: No signs and/or symptoms were reported involving the gastrointestinal system. : No signs and/or symptoms were reported regarding the genitourinary system. Derm: Skin is pink, warm \\T\\ dry. [employer]: 09:17 LMP N/A - . tw2 Historical: - Allergies: 06:53 Codeine; tl2 - Home Meds: 06:51 Albuterol Inhl [Active]; Prilosec Oral [Active]; Flovent Inhl [Active]; ProAir HFA tl2 inhalation inhalation [Active]; - PMHx: 06:53 COPD; tl2 - Immunization history:: Adult Immunizations up to date. - Social history:: Smoking status: unknown. - Ebola Screening: : No symptoms or risks identified at this time. Screenin:42 Abuse screen: Denies threats or abuse. Nutritional screening: No deficits noted. tl2 Tuberculosis screening: No symptoms or risk factors identified. Fall Risk IV access (20 points). Assessment: 05:40 General: Appears in no apparent distress. uncomfortable, Behavior is anxious. Neuro: tl2 Level of Consciousness is awake, alert, obeys commands, Oriented to person, place, time, situation. Cardiovascular: Rhythm is sinus tachycardia. Respiratory: Respiratory effort is labored, Breath sounds are coarse Breath sounds with wheezes bilaterally. the patient has moderate shortness of breath. Respiratory: Airway. GI: No signs and/or symptoms were reported involving the gastrointestinal system. : No signs and/or symptoms were reported regarding the genitourinary system. Derm: Skin is pink, warm \\T\\ dry. 05:45 Reassessment: pt placed on Bipap. tl2 07:31 Reassessment: Patient appears in no apparent distress at this time. Patient and/or tw2 family updated on plan of care and expected duration. Pain level reassessed. pt states "when can i get this thing off", pt educated as to the need for bipap at this time. 08:11 Reassessment: Dr. Box is at bedside at this time. tw2 09:19 Reassessment: Patient appears in no apparent distress at this time. Patient and/or tw2 family updated on plan of care and expected duration. Pain level reassessed. Reassessment: Patient appears in no apparent distress at this time. Patient and/or family updated on plan of care and expected duration. Pain level reassessed. Vital Signs: 05:40 BP 138 / 83; Pulse 119; Resp 28; Temp 97.2(A); Pulse Ox 100% on Nebulizer Mask; Weight tl2 81.65 kg; Height 5 ft. 5 in. (165.10 cm); 06:00 BP 145 / 84; Pulse 123; Resp 20; Pulse Ox 100% on BiPAP; tl2 06:30 BP 122 / 76; Pulse 113; Resp 20; Pulse Ox 100% on BiPAP; tl2 07:32 BP 99 / 72; Pulse 103; Resp 20; Pulse Ox 100% on 35% BiPAP; tw2 08:09 BP 94 / 59; Pulse 97; Resp 22; Pulse Ox 100% on 35% BiPAP; sv 09:17 BP 93 / 71; Pulse 87; Resp 25; Pulse Ox 99% on 35% BiPAP; tw2 05:40 Body Mass Index 29.95 (81.65 kg, 165.10 cm) tl2 07:32 12/7 rate 27 tw2 ED Course: 05:40 Arm band placed on right wrist. tl2 05:53 Patient arrived in ED. am2 06:05 Trudy Bacon FNP-C is PHCP. snw 06:05 Rob Khanna MD is Attending Physician. snw 06:38 Triage completed. tl2 06:42 Patient has correct armband on for positive identification. Bed in low position. Call tl2 light in reach. Side rails up X2. 06:42 Maintain EMS IV. Dressing intact. Good blood return noted. Site clean \\T\\ dry. Gauge \\T\\ tl 2 site: 20 g R AC. 07:06 XRAY Chest (1 view) In Process Unspecified. EDMS 07:31 Shantelle Ricardo RN is Primary Nurse. tw2 08:12 BIPAP Sent. tw2 08:18 Hung Box MD is Hospitalizing Provider. snw 09:16 No provider procedures requiring assistance completed. Patient admitted, IV remains in tw2 place. 09:17 Awaiting: attempted to call report at this time, LEIDA Torres will call me back. tw2 09:59 Maintain EMS IV. Dressing intact. Good blood return noted. Site clean \\T\\ dry. Gauge \\T\\ tw 2 site: 20g LEFT hand. Administered Medications: 06:00 Drug: Albuterol 2.5 mg Route: Inhalation; jd3 06:20 Drug: Albuterol 2.5 mg Route: Inhalation; jd3 06:40 Drug: Albuterol 2.5 mg Route: Inhalation; jd3 06:44 Drug: Aspirin Chewable Tablet 324 mg Route: PO; jd3 07:16 Follow up: Response: No adverse reaction tl2 06:44 Drug: predniSONE 60 mg Route: PO; jd3 07:16 Follow up: Response: No adverse reaction tl2 06:44 Drug: Pepcid 20 mg Route: PO; jd3 07:17 Follow up: Response: No adverse reaction tl2 06:44 Drug: NS 0.9% 1000 ml Route: IV; Rate: 125 ml/hr; Site: left hand; jd3 10:01 Follow up: IV Status: Infusion continued upon admission tw2 Outcome: 08:18 Decision to Hospitalize by Provider. snw 10:00 Admitted to ICU accompanied by nurse, accompanied by tech, via stretcher, room 7, with tw2 oxygen, on monitor, with chart, Report called to LEIDA Torres 10:00 Condition: stable 10:00 Instructed on the need for admit. 10:00 Patient left the ED. tw2 Signatures: Dispatcher [employer] EDAngelica Cohen, RN RN Trudy Rasheed, TUBE TURNER-C TUBE TURNER-Csnw Shantelle Ricardo RN RN tw2 Yani Scott RN RN tl2 Kymberly Jones am2 Gerry Grayson RN RN jd3 Corrections: (The following items were deleted from the chart) 06:46 06:43 Albuterol 2.5 mg Inhalation jd3 jd3 06:53 06:19 Allergies: Codeine [Inactive]; snw tl2 06:53 06:19 Home Meds: ProAir HFA 90 mcg/actuation inhalation HFAA 2 puffs as needed tl2 [Inactive]; snw 06:53 06:19 Home Meds: prednisone 10 mg Oral tab 1 tab once daily [Inactive]; snw tl2 06:53 06:19 PMHx: COPD [Inactive]; snw tl2 06:53 06:19 PMHx: Bronchitis [Inactive]; snw tl2 07:13 05:40 BP 138 / 83; Pulse 119bpm; Resp 28bpm; Pulse Ox 100% Nebulizer Mask; 81.65 kg; tl2 Height 5 ft. 5 in.; BMI: 29.9; tl2 07:15 06:43 Respiratory: Airway tl2 tl2 07:15 06:43 Cardiovascular: Rhythm is sinus tachycardia tl2 tl2 07:15 06:43 Respiratory: Respiratory effort is labored, Breath sounds are coarse Breath tl2 sounds with wheezes bilaterally. the patient has moderate shortness of breath tl2 07:15 06:43 GI: No signs and/or symptoms were reported involving the gastrointestinal system. tl2 tl2 07:15 06:43 : No signs and/or symptoms were reported regarding the genitourinary system. 2tl2 07:15 06:43 Derm: Skin is pink, warm \\T\\ dry. tl2 tl2 07:15 06:43 Neuro: Level of Consciousness is awake, alert, obeys commands, Oriented to tl2 person, place, time, situation, 2 07: 06:43 General: Appears in no apparent distress. uncomfortable, Behavior is anxious, tl2 tl2 08:10 08:09 BP 94 / 59; Pulse 97bpm; Resp 22bpm; Pulse Ox 100% BiPAP; sv sv 08:11 07:32 BP 99 / 72; Pulse 103bpm; Resp 20bpm; Pulse Ox 100% RA; tw2 tw2
--- NOTE | 2019-02-09 08:19 | EDPHYS ---
Physician Documentation [facility] Name: Elizabeth Ny Age: 53 yrs Sex: Female : 1965 Arrival Date: 02/09/2019 Time: 05:53 Bed 4 Private MD: ED Physician Rob Khanna HPI: 02/09 06:19 This 53 yrs old Female presents to ER via Unassigned with complaints of snw Respiratory Distress. 06:19 Onset: The symptoms/episode began/occurred gradually, 3 day(s) ago, and became worse snw this morning. Associated signs and symptoms: Pertinent positives: chest pain, cough, wheezing. Modifying factors: The patient symptoms are alleviated by nothing, the patient symptoms are aggravated by talking, walking. The patient has experienced similar episodes in the past. It is unknown whether or not the patient has recently seen a physician, sees [facility]. REPRESENTATIVE PERSONAL SERVICE: 09:17 LMP N/A - . tw2 Historical: - Allergies: 06:53 Codeine; tl2 - Home Meds: 06:51 Albuterol Inhl [Active]; Prilosec Oral [Active]; Flovent Inhl [Active]; ProAir HFA tl2 inhalation inhalation [Active]; - PMHx: 06:53 COPD; tl2 - Immunization history:: Adult Immunizations up to date. - Social history:: Smoking status: unknown. - Ebola Screening: : No symptoms or risks identified at this time. ROS: 06:17 Eyes: Negative for injury, pain, redness, and discharge, ENT: Negative for injury, snw pain, and discharge, Neck: Negative for injury, pain, and swelling, Cardiovascular: Negative for chest pain, palpitations, and edema, Abdomen/GI: Negative for abdominal pain, nausea, vomiting, diarrhea, and constipation, Back: Negative for injury and pain, : Negative for injury, bleeding, discharge, and swelling, MS/Extremity: Negative for injury and deformity, Skin: Negative for injury, rash, and discoloration, Neuro: Negative for headache, weakness, numbness, tingling, and seizure. 06:17 Constitutional: Positive for malaise, respiratory fatigue x 3 days. 06:17 Respiratory: Positive for cough, dyspnea on exertion, orthopnea, shortness of breath, wheezing. Exam: 06:14 Head/Face: Normocephalic, atraumatic. Eyes: Pupils equal round and reactive to light, snw extra-ocular motions intact. Lids and lashes normal. Conjunctiva and sclera are non-icteric and not injected. Cornea within normal limits. Periorbital areas with no swelling, redness, or edema. ENT: Nares patent. No nasal discharge, no septal abnormalities noted. Tympanic membranes are normal and external auditory canals are clear. Oropharynx with no redness, swelling, or masses, exudates, or evidence of obstruction, uvula midline. Mucous membranes moist. Neck: Trachea midline, no thyromegaly or masses palpated, and no cervical lymphadenopathy. Supple, full range of motion without nuchal rigidity, or vertebral point tenderness. No Meningismus. Chest/axilla: Normal chest wall appearance and motion. Nontender with no deformity. No lesions are appreciated. 06:14 Abdomen/GI: Soft, non-tender, with normal bowel sounds. No distension or tympany. No guarding or rebound. No evidence of tenderness throughout. Back: No spinal tenderness. No costovertebral tenderness. Full range of motion. MS/ Extremity: Pulses equal, no cyanosis. Neurovascular intact. Full, normal range of motion. Neuro: Awake and alert, GCS 15, oriented to person, place, time, and situation. Cranial nerves II-XII grossly intact. Motor strength 5/5 in all extremities. Sensory grossly intact. Cerebellar exam normal. Normal gait. Psych: Awake, alert, with orientation to person, place and time. Behavior, mood, and affect are within normal limits. 06:14 Constitutional: The patient appears alert, awake, uncomfortable. 06:14 Cardiovascular: Rate: tachycardic, Pulses: no pulse deficits are appreciated, mottled. 06:14 Respiratory: moderate respiratory distress is noted, Respirations: labored breathing, shallow respirations, tachypnea, Breath sounds: decreased breath sounds, that are moderate, wheezing: pt on Bi-pap on my arrival at 0600 - arrived per EMS. 06:14 Skin: mottled. Vital Signs: 05:40 BP 138 / 83; Pulse 119; Resp 28; Temp 97.2(A); Pulse Ox 100% on Nebulizer Mask; Weight tl2 81.65 kg; Height 5 ft. 5 in. (165.10 cm); 06:00 BP 145 / 84; Pulse 123; Resp 20; Pulse Ox 100% on BiPAP; tl2 06:30 BP 122 / 76; Pulse 113; Resp 20; Pulse Ox 100% on BiPAP; tl2 07:32 BP 99 / 72; Pulse 103; Resp 20; Pulse Ox 100% on 35% BiPAP; tw2 08:09 BP 94 / 59; Pulse 97; Resp 22; Pulse Ox 100% on 35% BiPAP; sv 09:17 BP 93 / 71; Pulse 87; Resp 25; Pulse Ox 99% on 35% BiPAP; tw2 05:40 Body Mass Index 29.95 (81.65 kg, 165.10 cm) tl2 07:32 12/7 rate 27 tw2 MDM: 06:17 Data reviewed: vital signs, nurses notes. Data interpreted: Pulse oximetry: on Bi-Pap snw Plan: pt states she had an O2 sat of 70% on EMS arrival. Counseling: I had a detailed discussion with the patient and/or guardian regarding: the historical points, exam findings, and any diagnostic results supporting the discharge/admit diagnosis. 06:20 Patient medically screened. snw 07:43 Physician consultation: Hung Box MD was called at 07:40, was contacted at 07:40, snw regarding admission, to the ICU, would like further tests performed, repeat ABG. ED course: Pt resting quietly, easily arousable. RT notified of need for repeat ABG. Pt just taken off Neb tx. RT will return in 10-20 minutes for ABG. 02/09 06:06 Order name: Basic Metabolic Panel; Complete Time: 06:49 snw 02/09 06:06 Order name: CBC with Diff snw 02/09 06:06 Order name: LFT's; Complete Time: 06:49 snw 02/09 06:06 Order name: Magnesium; Complete Time: 06:49 snw 02/09 06:06 Order name: NT PRO-BNP; Complete Time: 06:49 snw 02/09 06:06 Order name: PT-INR; Complete Time: 06:49 snw 02/09 06:06 Order name: Troponin (emerg Dept Use Only); Complete Time: 06:49 snw 02/09 06:06 Order name: XRAY Chest (1 view); Complete Time: 08:14 snw 02/09 06:06 Order name: BIPAP snw 02/09 06:14 Order name: ABG: venous; Complete Time: 06:49 snw 02/09 07:54 Order name: Manual Differential; Complete Time: 08:00 EDMS 02/09 08:09 Order name: ABG; Complete Time: 09:43 snw 02/09 06:06 Order name: EKG; Complete Time: 06:07 snw 02/09 06:06 Order name: Cardiac monitoring; Complete Time: 06:43 snw 02/09 06:06 Order name: EKG - Nurse/Tech; Complete Time: 06:43 snw 02/09 06:06 Order name: IV Saline Lock; Complete Time: 06:32 snw 02/09 06:06 Order name: Labs collected and sent; Complete Time: 06:43 snw 02/09 06:06 Order name: O2 Per Protocol; Complete Time: 06:32 snw 02/09 06:06 Order name: O2 Sat Monitoring; Complete Time: 06:32 snw Administered Medications: 06:00 Drug: Albuterol 2.5 mg Route: Inhalation; jd3 06:20 Drug: Albuterol 2.5 mg Route: Inhalation; jd3 06:40 Drug: Albuterol 2.5 mg Route: Inhalation; jd3 06:44 Drug: Aspirin Chewable Tablet 324 mg Route: PO; jd3 07:16 Follow up: Response: No adverse reaction tl2 06:44 Drug: predniSONE 60 mg Route: PO; jd3 07:16 Follow up: Response: No adverse reaction tl2 06:44 Drug: Pepcid 20 mg Route: PO; jd3 07:17 Follow up: Response: No adverse reaction tl2 06:44 Drug: NS 0.9% 1000 ml Route: IV; Rate: 125 ml/hr; Site: left hand; jd3 10:01 Follow up: IV Status: Infusion continued upon admission tw2 Disposition: 02/09/19 08:18 Hospitalization ordered by Hung Box for Inpatient Admission. Preliminary diagnosis is Chronic obstructive pulmonary disease with (acute) exacerbation. - Bed requested for Intensive Care Unit. - Status is Inpatient Admission. tw2 - Condition is Fair. - Problem is an acute exacerbation. - Symptoms are unchanged. UTI on Admission? No Addendum: 02/10/2019 15:15 Co-signature as Attending Physician, Rob Khanna MD Available for consultation at p s1 all times . Signatures: Dispatcher [employer] EDMS Trudy Bacon, REAL ESTATE LISTING CONSULTANT-C REAL ESTATE LISTING CONSULTANT-Csnw Hernandez Candelaria em1 Shantelle Ricardo, RN RN tw2 Yani Scott, RN RN tl2 Gerry Grayson, RN RN jd3 Rob Khanna MD MD ps1 Corrections: (The following items were deleted from the chart) 02/09 06:29 06:24 ABG Arterial Blood Gas ordered. EDIL EDMS 06:53 06:19 Allergies: Codeine [Inactive]; snw tl2 06:53 06:19 Home Meds: ProAir HFA 90 mcg/actuation inhalation HFAA 2 puffs as needed tl2 [Inactive]; snw 06:53 06:19 Home Meds: prednisone 10 mg Oral tab 1 tab once daily [Inactive]; snw tl2 06:53 06:19 PMHx: COPD [Inactive]; snw tl2 06:53 06:19 PMHx: Bronchitis [Inactive]; snw tl2 09:05 08:18 Hospitalization Ordered by Hung Box MD for Inpatient Admission. Preliminary em1 diagnosis is Chronic obstructive pulmonary disease with (acute) exacerbation. Bed requested for Intensive Care Unit. Status is Inpatient Admission. Condition is Fair. Problem is an acute exacerbation. Symptoms are unchanged. UTI on Admission? No. snw 10:00 09:05 02/09/2019 08:18 Hospitalization Ordered by Hung Box MD for Inpatient tw2 Admission. Preliminary diagnosis is Chronic obstructive pulmonary disease with (acute) exacerbation. Bed requested for Intensive Care Unit. Status is Inpatient Admission. Condition is Fair. Problem is an acute exacerbation. Symptoms are unchanged. UTI on Admission? No. em1
[2019-02-09 09:35] LABS: Arterial Blood Carboxyhemoglob 1.2 % (0-1.5); Blood Gas Oxyhemoglobin 95.8 % (94-97); Blood O2 Saturation 97.6 % (92-98.5)
[2019-02-09] MEDS ORDERED: ONDANSETRON 4 MG/2 ML VIAL IV PRN (09:46)
[2019-02-09] MEDS ORDERED: ACETAMINOPHEN 500 MG TAB PO PRN (09:46)
[2019-02-09] MEDS: NA CHLORIDE 0.9% 1,000 ML IV SCH ×2 (09:46→14:48)
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
[2019-02-09 10:44] VITALS: BMI 29.5
[2019-02-09 10:50] VITALS: O2SAT 98
--- NOTE | 2019-02-09 10:58 | EKG ---
Test Date: 2019-02-09 Test Time: 05:51:14 Cop Examiner: MIGUEL MEASUREMENT RESULTS: Intervals: Rate: 113 IA: 124 QRSD: 78 QT: 310 QTc: 425 [place]: P: 78 IA: 124 QRS: 87 T: 28 INTERPRETIVE STATEMENTS: Sinus tachycardia Right atrial enlargement RSR' or QR pattern in V1 suggests right ventricular conduction delay Cannot rule out Anterior infarct, age undetermined Abnormal ECG Compared to ECG 12/20/2018 11:59:02 Atrial abnormality now present RSR' in V1 or V2 now present Myocardial infarct finding now present Electronically Signed On 02-09-19 10:56:40 CDT by Danie Davis
[2019-02-09] MEDS: ENOXAPARIN 40 MG/0.4 ML SQ SCH (11:09)
[2019-02-09] MEDS: METHYLPREDNISOLONE 40 MG INJ IV SCH ×2 (11:09→17:15)
[2019-02-09] MEDS ORDERED: PNEUMOCOCCAL VACCINE 0.5 ML IMVAC ONE (12:00)
[2019-02-09] MEDS: IPRATROPIUM BROM 0.5MG/2.5ML NEB SCH ×2 (13:26→21:00)
[2019-02-09] MEDS: ALBUTEROL 2.5 MG/3 ML NEB SOL NEB SCH ×2 (13:26→21:00)
[2019-02-09 16:09] LABS: Urine Appearance CLEAR; Urine Bilirubin NEGATIVE (NEG); Urine Blood NEGATIVE (NEG); Urine Color YELLOW; Urine Glucose 3+ (NEG); Urine Protein NEGATIVE (NEG); Urine Urobilinogen 0.2 mg/dL (0.2-1.0)
[2019-02-09 16:24] LABS: Urine Microscopic Reflex NO UMIC
[2019-02-09 16:27] LABS: Urine Bacteria <20 /HPF (<20); Urine RBC <5 /HPF (NONE SEEN)
[2019-02-09 16:31] LABS: Urine Culture Reflex Order NOT NEEDED; Urine Mucus 1+ /HPF (NONE SEEN)
[2019-02-09] MEDS: guaiFENesin 100 MG/5 ML UCUP PO PRN (21:36)
[2019-02-09] MEDS: DULERA 100/5 (MOMETASONE/FORMOTEROL) INHALER IH SCH (21:36)
--- NOTE | 2019-02-09 22:26 | HP ---
Date of Admission: 02/09/2019 Chief Complaint: Shortness of breath. Primary Care Physician: At [facility] ([facility] Oil Furnace Installer: Dr. Brand with Pulmonology. History Of Present Illness: The patient is a 53-year-old female with past medical history of COPD, alcohol abuse, former smoker, who was recently admitted on December 20 for COPD exacerbation. The patient comes in with difficulty breathing. The patient states that she takes Flovent at home and albuterol. The patient was having some cough with clear sputum production and her symptoms were constant, moderate, and progressively worsening. The patient was hypoxic on room air, found to have O2 saturation in the 70s. She improved on nebulizer mass and was then placed on BiPAP. The patient received Solu- Medrol 125 mg and breathing treatment x3. The patient's workup showed normal white blood cell count. Her ABG showed pH of 7.29, pCO2 60, PO2 31, which likely was a venous sample. She was doing well on BiPAP. Her chest x-ray did not show any acute abnormalities. The patient was then referred for admission. When seen in the ER, she was awake, alert, oriented x3, in some moderate respiratory distress on BiPAP. Past Medical History: COPD, alcohol abuse, former tobacco abuse. Surgical History: Tubal ligation. Allergies: TO CODEINE WHICH CAUSES HIVES AND RASH. Medications: List reviewed. Social History: The patient does report drinking alcohol on a regular basis. No tobacco use. The patient quit smoking 3 years ago. No illicit drug use. Family History: Father had stroke and bone cancer. Mother is healthy. Review of Systems: An 11-point system reviewed, negative except as per HPI. Physical Examination: Vital Signs: Heart rate 123, respirations 20, blood pressure 145/84, O2 saturations 83% on room air, improved to 100% on BiPAP. General: Awake, alert, oriented 3, in some moderate respiratory distress. Appears gyncn-bzyo-onrotb-age female. HEENT: Normocephalic, atraumatic. PERRLA. EOMI. Moist mucous membranes. Oropharynx is clear. Conjunctivae are anicteric. Neck: Supple. No JVD. Trachea midline. CV: S1, S2. Sinus tachycardia. Peripheral pulses present. No murmurs. Respiratory: Diminished breath sounds. Diffuse wheezing is heard. The patient is tachypneic with use of accessory muscles. Gastrointestinal: Abdomen is soft, nontender, nondistended. Positive bowel sounds. No guarding or rigidity. Extremities: No clubbing, cyanosis, or edema. No calf tenderness. Neuro: Cranial nerves 2-12 intact grossly. No focal neurological deficit. Speech is normal. Strength is 5/5, bilateral upper and lower extremities. Sensation intact to light touch. Skin: No rashes. Normal skin turgor. Psych: Mood is anxious. Affect is congruent with mood. Insight and judgment are fair. Laboratory Data: Sodium 138, potassium 3.8, chloride 104, CO2 28, BUN 4, creatinine 0.59, glucose 110, calcium 9, magnesium 2.1. INR 1.04. WBC 8.4, H and H 13.5 and 40.2, platelets 426, neutrophils 47%. ABG #1; pH 7.29, pCO2 60, PO2 31, bicarb 27.8. ABG #2 shows pH 7.37, pCO2 44, PO2 107, bicarb 25. Chest x-ray shows no acute abnormalities displayed, lungs hyperaerated, no infiltrates. EKG; sinus tachycardia, rate of 113, right atrial enlargement. Assessment And Plan: A 53-year-old female with: 1. Acute respiratory failure with hypoxia. The patient is currently on BiPAP. We will wean off as tolerated secondary to acute COPD exacerbation. Dr. Brand with pulmonology has been consulted. 2. Acute COPD exacerbation. We will continue on nebulizer treatments and IV steroids, supplemental oxygen, currently on BiPAP. 3. Acute hypotension: IVFs. 4. Gastroesophageal reflux disease without esophagitis. Continue PPI. 5. Alcohol abuse. Thiamine and folate. Watch for signs of withdrawal. Ativan prn. Counseled. GI and DVT prophylaxis with PPI and Lovenox. The patient does have history of alcohol use. We will start her on multivitamins. Admit the patient to ICU, place as inpatient. Length of stay, greater than 2 midnights. PINA Voice ID: [id number] FRANKIE
[2019-02-10] MEDS: METHYLPREDNISOLONE 40 MG INJ IV SCH ×2 (00:29→05:37)
[2019-02-10] MEDS: NA CHLORIDE 0.9% 1,000 ML IV SCH ×2 (00:32→05:46)
[2019-02-10] MEDS: IPRATROPIUM BROM 0.5MG/2.5ML NEB SCH ×2 (01:45→07:34)
[2019-02-10] MEDS: ALBUTEROL 2.5 MG/3 ML NEB SOL NEB SCH ×2 (01:45→07:34)
[2019-02-10] MEDS: guaiFENesin 100 MG/5 ML UCUP PO PRN (04:27)
[2019-02-10 06:28] LABS: Absolute Lymphocytes (CBC) 0.9 K/uL (0.7-4.9); Absolute Monocytes 0.3 K/uL (0.1-1.3); Absolute Neutrophil 7.8 K/uL (1.8-8.0); Basophils % 0.3 % (0-1.3); Hematocrit 33.1 % (36.0-45.0); Lymphocytes % 10.2 % (15.3-44.8); MPV 8.8 fL (7.6-11.3); Monocytes % 3.7 % (3.3-12.3)
[2019-02-10] MEDS ORDERED: PANTOPRAZOLE 40MG TABLET PO SCH (06:30)
[2019-02-10 06:44] LABS: BUN Blood Urea Nitrogen 6 mg/dL (7-18); Bicarbonate 25 mmol/L (21-32); Glucose Level 173 mg/dL (74-106); Potassium 3.8 mmol/L (3.5-5.1); Sodium Level 138 mmol/L (136-145)
[2019-02-10 07:32] VITALS: BP 108/60; TEMP 98
[2019-02-10] MEDS: ENOXAPARIN 40 MG/0.4 ML SQ SCH (08:23)
[2019-02-10] MEDS: DULERA 100/5 (MOMETASONE/FORMOTEROL) INHALER IH SCH (08:23)
[2019-02-10] MEDS ORDERED: POTASSIUM CL SA 10 MEQ TAB PO ONE (09:00)
[2019-02-10] MEDS ORDERED: ASPIRIN 81 MG CHEWABLE TABLET PO SCH (09:00)
[2019-02-10] MEDS ORDERED: FOLIC ACID 1 MG TABLET PO SCH (09:00)
[2019-02-10] MEDS ORDERED: THIAMINE HCL 100 MG TABLET PO SCH (09:00)
--- NOTE | 2019-02-11 03:04 | DS ---
Date of Discharge: 02/10/2019 Consultants: Dr. Brand with Pulmonology. Admitting Diagnoses: 1.Acute respiratory failure with hypoxia. 2.Acute chronic obstructive pulmonary disease exacerbation. 3.Alcohol abuse. 4.Acute hypotension. Discharge Diagnoses: 1.Acute respiratory failure with hypoxia, improved. 2.Acute chronic obstructive pulmonary disease exacerbation, improving. 3.Acute hypotension, improved. 4.Alcohol abuse. Counseled. Hospital Course: The patient is a 53-year-old female, who has a past medical history of COPD, alcoho l abuse, former smoker, quit 3 years ago, comes in with COPD exacerbation, shortness of breath. The patient was found to be hypoxic with O2 saturations in the 80s. She was placed on BiPAP. Her initia l ABG showed a pH of 7.29, pCO2 of 60, pO2 of 31, which may have been a venous sample. The patient w as admitted to the ICU. She did well on BiPAP. Repeat ABG was improved. She was stepped down from the ICU. She was responding well to breathing treatments and steroids. She was seen by Dr. Brand with Pulmonology. The patient did well overall. She was able to be weaned off oxygen and was 90% o n room air. She was then cleared for discharge and was sent home in a stable condition. Activity: As tolerated. Medications: As per medication reconciliation list. Followup: Follow up with primary care physician in 2-3 days. Follow up with robotics specialist, Dr. Dereck steinberg, in 2 weeks. Return to ER for worsening condition. Diet: Heart healthy. Abstain from alcohol. Physical Examination: General: Awake, alert, oriented, no acute distress, appears older than stated age, overweight female . CV: S1, S2. Regular rate and rhythm. Peripheral pulses present. Respiratory: Moving air well bilaterally. No wheezing. Gastrointestinal: Abdomen is soft, nontender, nondistended. Positive bowel sounds. Extremities: No clubbing, cyanosis, or edema. Neurologic: Nonfocal. Time Spent: Total time spent discharging the patient was 33 minutes. /MODL Voice ID: [id number] Report ID: [id number]
== END 2019-02-10 11:22 | disposition home or self-care (01) | DRG 190 ==
LOC: ER 05:47 → ERHOLD 08:18 → 3RD-ICU 09:39 → 4TH 17:40
PROVIDERS: ADMIT Family Medicine; ATTEND Family Medicine
PROC: 5A09357 Assistance with Respiratory Ventilation, Less than 24 Consecutive Hours, Continuous Positive Airway Pressure (ICD-10-PCS; principal; 2019-02-09)
DX: J44.1 Chronic obstructive pulmonary disease with (acute) exacerbation (principal); J96.01 Acute respiratory failure with hypoxia; I95.9 Hypotension, unspecified; K21.9 Gastro-esophageal reflux disease without esophagitis; F10.10 Alcohol abuse, uncomplicated; Z23 Encounter for immunization; Z79.51 Long term (current) use of inhaled steroids; Z79.52 Long term (current) use of systemic steroids; Z87.891 Personal history of nicotine dependence; Z88.5 Allergy status to narcotic agent
CPT/HCPCS: 36415; 71045; 80048; 80076; 81003; 81015; 82805; 82962; 83735; 83880; 84484; 85025; 85610; 90670; 93005; 94640; 94660; 96360; 96361; 99291; 99292; G0009; J1650; J2920; J7030; J7512; J7606

== ENCOUNTER 2019-04-30 19:48 | Observation (INO) | payer SELFPAY ==
[2019-04-30 20:21] LABS: Absolute Lymphocytes (CBC) 2.7 K/uL (0.7-4.9); Eosinophils % 12.7 % (0-4.4); Hematocrit 37.7 % (36.0-45.0); MPV 8.5 fL (7.6-11.3); Monocytes % 6.9 % (3.3-12.3); RBC Red Blood Cell Count 3.92 M/uL (3.86-4.86)
[2019-04-30] MEDS ORDERED: ALBUTEROL 2.5 MG/3 ML NEB SOL ONE ×3 (20:25→21:45)
[2019-04-30] MEDS ORDERED: IPRATROPIUM BROM 0.5MG/2.5ML ONE ×3 (20:25→21:45)
[2019-04-30 20:40] LABS: BUN Blood Urea Nitrogen 7 mg/dL (7-18); Bicarbonate 26 mmol/L (21-32); Glucose Level 101 mg/dL (74-106); NT PRO-BNP 57 pg/mL (<125); Potassium 3.6 mmol/L (3.5-5.1); Sodium Level 136 mmol/L (136-145); Troponin (Emerg Dept Use Only) < 0.02 ng/mL (0.0-0.045)
[2019-04-30] MEDS ORDERED: predniSONE 20 MG TAB ONE (20:50)
--- NOTE | 2019-04-30 21:21 | ER ---
Nurse's Notes [facility] Name: Elizabeth Ny Age: 53 yrs Sex: Female : 1965 Arrival Date: 04/30/2019 Time: 19:51 Bed 23 Private MD: Diagnosis: Chronic obstructive pulmonary disease with (acute) exacerbation;Hypoxemia Presentation: 04/30 19:59 Presenting complaint: Patient states: SOB and chest tightness X1 day. 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 Transition of care: patient was not received from another setting of care. Onset of symptoms is unknown. Risk Assessment: Do you want to hurt yourself or someone else? Patient reports no desire to harm self or others. Initial Sepsis Screen: Does the patient meet any 2 criteria? No. Patient's initial sepsis screen is negative. Does the patient have a suspected source of infection? No. Patient's initial sepsis screen is negative. 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 19:59 Acuity: CAROLYN 3 ak1 19:59 Method Of Arrival: Ambulatory ak1 Triage Assessment: 20:01 General: Appears uncomfortable, Behavior is cooperative, anxious. Pain: Complains of ak1 pain in chest. EENT: No signs and/or symptoms were reported regarding the EENT system. Neuro: Level of Consciousness is awake, alert, obeys commands. Cardiovascular: Reports chest pain, shortness of breath. Respiratory: Reports shortness of breath at rest on exertion air hunger since this morning Onset: The symptoms/episode began/occurred today, the patient has mild shortness of breath. GI: No signs and/or symptoms were reported involving the gastrointestinal system. : No signs and/or symptoms were reported regarding the genitourinary system. Derm: No signs and/or symptoms reported regarding the dermatologic system. Musculoskeletal: No signs and/or symptoms reported regarding the musculoskeletal system. 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 - Social history:: Smoking status: Patient/guardian denies using tobacco, the patient reports quitting approximately 3 years ago. - Ebola Screening: : No symptoms or risks identified at this time. Screenin:02 Abuse screen: Denies threats or abuse. Denies injuries from another. Nutritional ak1 screening: No deficits noted. Tuberculosis screening: No symptoms or risk factors identified. Fall Risk None identified. Assessment: 20:02 Respiratory: Airway is patent Respiratory effort is with nasal flaring, pursed lip. ak1 20:08 General: Appears in no apparent distress. uncomfortable, Behavior is calm, cooperative, ca1 appropriate for age. Pain: Complains of pain in chest Pain does not radiate. Pain currently is 5 out of 10 on a pain scale. Quality of pain is described as pressure, Pain began 1 day ago. Neuro: Level of Consciousness is awake, alert, obeys commands, Oriented to person, place, time, situation. Cardiovascular: Heart tones S1 S2 present Capillary refill < 3 seconds Patient's skin is warm and dry. Pulses are all present. Rhythm is sinus rhythm. Respiratory: Reports shortness of breath since yesterday Airway is patent Respiratory effort is even, with nasal flaring, pursed lip, Respiratory pattern is regular, symmetrical, Breath sounds are clear bilaterally. GI: Abdomen is round non-distended, Bowel sounds present X 4 quads. Abd is soft and non tender X 4 quads. : No deficits noted. No signs and/or symptoms were reported regarding the genitourinary system. EENT: No deficits noted. No signs and/or symptoms were reported regarding the EENT system. Derm: Skin is intact, is healthy with good turgor, Skin is pink, warm \T\ dry. Musculoskeletal: Circulation, motion, and sensation intact. Capillary refill < 3 seconds, Range of motion: intact in all extremities. 20:42 Reassessment: Patient appears in no apparent distress at this time. Patient and/or ca1 family updated on plan of care and expected duration. Pain level reassessed. Patient is alert, oriented x 3, equal unlabored respirations, skin warm/dry/pink. Respiratory: Airway is patent Respiratory effort is even, unlabored. 21:50 Reassessment: Patient appears in no apparent distress at this time. Patient and/or ca1 family updated on plan of care and expected duration. Pain level reassessed. Patient is alert, oriented x 3, equal unlabored respirations, skin warm/dry/pink. 22:38 Reassessment: Patient appears in no apparent distress at this time. Patient is alert, ca1 oriented x 3, equal unlabored respirations, skin warm/dry/pink. Vital Signs: 19:58 BP 131 / 116; Pulse 97; Resp 20; Temp 97; Pulse Ox 94% on R/A; Weight 74.84 kg (R); ak1 Height 5 ft. 3 in. (160.02 cm) (R); Pain 5/10; 20:42 BP 109 / 65; Pulse 83; Resp 18 S; Pulse Ox 100% on Nebulizer Mask; ca1 21:00 BP 128 / 77; Pulse 94; Resp 19 S; Pulse Ox 96% on R/A; ca1 21:30 BP 108 / 82; Pulse 104; Resp 24 S; Pulse Ox 92% on R/A; ca1 22:14 BP 105 / 72; Pulse 91; Resp 16; Pulse Ox 100% on Nebulizer Mask; ca1 22:38 BP 108 / 71; Pulse 108; Resp 16 S; Temp 97.8(TE); Pulse Ox 95% on 2 lpm NC; ca1 19:58 Body Mass Index 29.23 (74.84 kg, 160.02 cm) ak1 ED Course: 19:51 Patient arrived in ED. ak1 19:53 Diane Crockett RN is Primary Nurse. ca1 19:53 Patrick Wong MD is Attending Physician. gs 19:58 Arm band placed on Patient placed in an exam room, on a stretcher, on oxygen, on ak1 library monitor, on pulse oximetry, Patient notified of wait time. 20:00 Triage completed. ak1 20:02 Patient has correct armband on for positive identification. Bed in low position. Call ak1 light in reach. Side rails up X 1. Adult w/ patient. Pulse ox on. NIBP on. 20:08 No provider procedures requiring assistance completed. Inserted saline lock: 20 gauge ca1 in right forearm, using aseptic technique. ,using aseptic technique. by Rigoberto Miller RN Blood collected. 20:56 XRAY Chest (1 view) In Process Unspecified. EDMS 21:19 Adin Morgan MD is Hospitalizing Provider. gs 22:14 Patient admitted, IV remains in place. ca1 Administered Medications: 20:10 Drug: Albuterol - atroVENT (3:1) (2.5 mg - 0.5 mg) 3 ml Route: Nebulizer; ca1 21:00 Follow up: Response: No adverse reaction; No change in condition ca1 20:18 Drug: AtroVENT Aerosol 0.5 mg Route: Inhalation; ca1 20:18 Drug: predniSONE 40 mg Route: PO; ca1 22:16 Follow up: Response: No adverse reaction ca1 21:30 Drug: NS 0.9% 1000 ml Route: IV; Rate: 125 ml/hr; Site: right antecubital; ca1 22:16 Follow up: IV Status: Infusion continued upon admission ca1 21:30 Drug: Albuterol - atroVENT (3:1) (2.5 mg - 0.5 mg) 3 ml Route: Nebulizer; ca1 22:40 Follow up: Response: No adverse reaction; Marked relief of symptoms ca1 Outcome: 21:20 Decision to Hospitalize by Provider. gs 22:39 Admitted to Med/surg accompanied by tech, via wheelchair, room 210, with chart, Report ca1 called to Nuvia Campbell RN 22:39 Condition: stable 22:39 Instructed on the need for admit. 22:59 Patient left the ED. ca1 Signatures: Dispatcher [employer] Annabel Juarez RN RN ak1 Patrick Wong MD MD Diane Crockett RN RN ca1
--- NOTE | 2019-04-30 21:21 | EDPHYS ---
Physician Documentation [facility] Name: Elizabeth Ny Age: 53 yrs Sex: Female : 1965 Arrival Date: 04/30/2019 Time: 19:51 Bed 23 Private MD: ED Physician Patrick Wong HPI: 05/01 10:46 This 53 yrs old Female presents to ER via Ambulatory with complaints of gs Shortness Of Breath. 10:46 The patient has shortness of breath at rest. Onset: The symptoms/episode began/occurred gs 1 week(s) ago, and became worse and became persistent. Duration: The symptoms are continuous. The patient's shortness of breath is aggravated by coughing. Associated signs and symptoms: Pertinent negatives: chest pain, fever. Severity of symptoms: At their worst the symptoms were severe in the emergency department the symptoms are unchanged. The patient has experienced similar episodes in the past, a few times. The patient has not recently seen a physician. 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 - Social history:: Smoking status: Patient/guardian denies using tobacco, the patient reports quitting approximately 3 years ago. - Ebola Screening: : No symptoms or risks identified at this time. ROS: 05/01 10:46 All other systems are negative. gs Exam: 04/30 21:20 ECG was reviewed by the Attending Physician. gs 05/01 10:46 Head/Face: Normocephalic, atraumatic. Eyes: Pupils equal round and reactive to light, gs extra-ocular motions intact. Lids and lashes normal. Conjunctiva and sclera are non-icteric and not injected. Cornea within normal limits. Periorbital areas with no swelling, redness, or edema. ENT: Nares patent. No nasal discharge, no septal abnormalities noted. Tympanic membranes are normal and external auditory canals are clear. Oropharynx with no redness, swelling, or masses, exudates, or evidence of obstruction, uvula midline. Mucous membranes moist. Neck: Trachea midline, no thyromegaly or masses palpated, and no cervical lymphadenopathy. Supple, full range of motion without nuchal rigidity, or vertebral point tenderness. No Meningismus. Chest/axilla: Normal chest wall appearance and motion. Nontender with no deformity. No lesions are appreciated. Abdomen/GI: Soft, non-tender, with normal bowel sounds. No distension or tympany. No guarding or rebound. No evidence of tenderness throughout. Back: No spinal tenderness. No costovertebral tenderness. Full range of motion. Skin: Warm, dry with normal turgor. Normal color with no rashes, no lesions, and no evidence of cellulitis. MS/ Extremity: Pulses equal, no cyanosis. Neurovascular intact. Full, normal range of motion. Neuro: Awake and alert, GCS 15, oriented to person, place, time, and situation. Cranial nerves II-XII grossly intact. Motor strength 5/5 in all extremities. Sensory grossly intact. Cerebellar exam normal. Normal gait. Constitutional: The patient appears alert, awake. Cardiovascular: Rate: tachycardic, Rhythm: regular, Pulses: no pulse deficits are appreciated, Heart sounds: normal. Respiratory: moderate respiratory distress is noted, Respirations: pursed lip breathing, tachypnea, Breath sounds: decreased breath sounds, that are moderate, are located in both bases, wheezing: expiratory that is moderate. Vital Signs: 04/30 19:58 BP 131 / 116; Pulse 97; Resp 20; Temp 97; Pulse Ox 94% on R/A; Weight 74.84 kg (R); ak1 Height 5 ft. 3 in. (160.02 cm) (R); Pain 5/10; 20:42 BP 109 / 65; Pulse 83; Resp 18 S; Pulse Ox 100% on Nebulizer Mask; ca1 21:00 BP 128 / 77; Pulse 94; Resp 19 S; Pulse Ox 96% on R/A; ca1 21:30 BP 108 / 82; Pulse 104; Resp 24 S; Pulse Ox 92% on R/A; ca1 22:14 BP 105 / 72; Pulse 91; Resp 16; Pulse Ox 100% on Nebulizer Mask; ca1 22:38 BP 108 / 71; Pulse 108; Resp 16 S; Temp 97.8(TE); Pulse Ox 95% on 2 lpm NC; ca1 19:58 Body Mass Index 29.23 (74.84 kg, 160.02 cm) ak1 MDM: 20:05 Patient medically screened. 05/01 10:46 Differential diagnosis: CHF exacerbation, Chronic Obstructive Pulmonary Disease gs pneumonia, reactive airway disease. Data reviewed: vital signs, nurses notes. Counseling: I had a detailed discussion with the patient and/or guardian regarding: the historical points, exam findings, and any diagnostic results supporting the discharge/admit diagnosis. Response to treatment: the patient's symptoms have mildly improved after treatment. 04/30 20:08 Order name: Basic Metabolic Panel; Complete Time: 21:07 04/30 20:08 Order name: CBC with Diff; Complete Time: 21: 04/30 20:08 Order name: NT PRO-BNP; Complete Time: 21:07 04/30 20:08 Order name: Troponin (emerg Dept Use Only); Complete Time: 21: 04/30 21:19 Order name: ABG; Complete Time: 10:48 04/30 22:42 Order name: Procalcitonin; Complete Time: 10:48 EDMS 07 20:08 Order name: XRAY Chest (1 view); Complete Time: 10:48 04/30 20:08 Order name: EKG; Complete Time: 20:09 04/30 20:08 Order name: Cardiac monitoring; Complete Time: 20:17 04/30 20:08 Order name: EKG - Nurse/Tech; Complete Time: 20:17 04/30 20:08 Order name: IV Saline Lock; Complete Time: 20:17 04/30 20:08 Order name: Labs collected and sent; Complete Time: 20:17 04/30 20:08 Order name: O2 Per Protocol; Complete Time: 20:17 04/30 20:08 Order name: O2 Sat Monitoring; Complete Time: 20:18 gs EC/08 21:20 Rate is 90 beats/min. Rhythm is regular. TX interval is normal. QRS interval is normal. gs T waves are Normal. No ST changes noted. Clinical impression: Normal ECG. Interpreted by me. Administered Medications: 20:10 Drug: Albuterol - atroVENT (3:1) (2.5 mg - 0.5 mg) 3 ml Route: Nebulizer; ca1 21:00 Follow up: Response: No adverse reaction; No change in condition ca1 20:18 Drug: AtroVENT Aerosol 0.5 mg Route: Inhalation; ca1 20:18 Drug: predniSONE 40 mg Route: PO; ca1 22:16 Follow up: Response: No adverse reaction ca1 21:30 Drug: NS 0.9% 1000 ml Route: IV; Rate: 125 ml/hr; Site: right antecubital; ca1 22:16 Follow up: IV Status: Infusion continued upon admission ca1 21:30 Drug: Albuterol - atroVENT (3:1) (2.5 mg - 0.5 mg) 3 ml Route: Nebulizer; ca1 22:40 Follow up: Response: No adverse reaction; Marked relief of symptoms ca1 Disposition: 04/30/19 21:20 Hospitalization ordered by Adin Morgan for Inpatient Admission. Preliminary diagnosis are Chronic obstructive pulmonary disease with (acute) exacerbation, Hypoxemia. - Bed requested for Telemetry/MedSurg (Inpatient). - Status is Inpatient Admission. ca1 - Condition is Stable. - Problem is an acute exacerbation. - Symptoms are unchanged. UTI on Admission? No Signatures: Dispatcher [employer] EDMS Loni Bowser RN RN Annabel Vincent RN RN oh1 Patrick Wong MD MD Diane Crockett RN RN ca1 Corrections: (The following items were deleted from the chart) 22:13 21:20 Hospitalization Ordered by Adin Morgan MD for Inpatient Admission. Preliminary fc diagnosis is Chronic obstructive pulmonary disease with (acute) exacerbation; Hypoxemia. Bed requested for Telemetry/MedSurg (Inpatient). Status is Inpatient Admission. Condition is Stable. Problem is an acute exacerbation. Symptoms are unchanged. UTI on Admission? No. 22:59 22:13 04/30/2019 21:20 Hospitalization Ordered by Adin Morgan MD for Inpatient ca1 Admission. Preliminary diagnosis is Chronic obstructive pulmonary disease with (acute) exacerbation; Hypoxemia. Bed requested for Telemetry/MedSurg (Inpatient). Status is Inpatient Admission. Condition is Stable. Problem is an acute exacerbation. Symptoms are unchanged. UTI on Admission? No.
--- NOTE | 2019-04-30 21:23 | RAD REPORT ---
EXAM DESCRIPTION: Roxana Single View04/30/2019 8:56 pm CLINICAL HISTORY: sob COMPARISON: January 2019 FINDINGS: The lungs appear clear of acute infiltrate. The heart is normal size IMPRESSION: No acute abnormalities displayed
[2019-04-30] MEDS ORDERED: NA CHLORIDE 0.9% 1,000 ML ONE (21:45)
--- NOTE | 2019-04-30 22:20 | P.HP ---
Certification for Inpatient Patient admitted to: Observation With expected LOS: <2 Midnights Practitioner: I am a practitioner with admitting privileges, knowledge of patient current condition, hospital course, and medical plan of care. Services: Services provided to patient in accordance with Admission requirements found in Title 42 Section 412.3 of the Code of Federal Regulations Patient History Date of Service: 04/30/19 Reason for admission: COPD exacerbation History of Present Illness: Ms Ny is a 53 years old woman with history of COPD, alcohol abuse, former tobacco abuse, who start with progressive SOB since yesterday. She has had dry cough as well and sore throat. She denied fever or chills. At arrival the patient was tachypneic, O2 sat was 94% on RA. Lab work shows normal WBC count, CXR shows no acute infiltrate. The patient had significant signs of bronchospasm at arrival, mildly improved with breathing treatments and IV steroids. At my encounter, she was still wheezing, and was dyspneic. Allergies codeine [Codeine] Adverse Reaction (Mild, Verified 12/20/18 19:55) Hives/Rash Home Medications: Omeprazole Magnesium [Prilosec Otc] 20 mg PO DAILY 10/03/18 Albuterol Sulfate [Proair Hfa] 8.5 gm IH TID PRN #1 hfa.aer.ad 10/05/18 Fluticasone/Salmeterol [Airduo Respiclick 113-14 Mcg] 2 each IH BID #1 aer.pow.ba 10/05/18 Ascorbic Acid [Vitamin C*] 1 tab PO DAILY 02/09/19 Aspirin Chewable [Aspirin Chewable*] 81 mg PO DAILY 02/09/19 Calcium Carbonate [Calcium] 500 mg PO DAILY 02/09/19 Thiamine HCl [Vitamin B-1*] 100 mg PO DAILY #30 tablet 02/10/19 predniSONE [Deltasone*] 10 mg PO SEECOM #30 tab 02/10/19 - Past Medical/Surgical History Diabetic: No -: COPD -: Alcohol abuse -: Former tobacco abuse -: Tubal ligation -: left ankle currently broken ( may 20, 2017) Psychosocial/ Personal History: She is , she has 2 children. She does not work. - Family History Mother -: Other (see notes) Notes: No health problems at this time. Father -: Stroke, Cancer Notes: bone cancer - Social History Smoking Status: Former smoker Alcohol use: Yes CD- Drugs: No Caffeine use: Yes Place of Residence: Home Review of Systems 10-point ROS is otherwise unremarkable Physical Examination - Physical Exam General: Alert, In no apparent distress HEENT: Atraumatic, PERRLA, Mucous membr. moist/pink, EOMI, Sclerae nonicteric Neck: Supple, 2+ carotid pulse no bruit, No LAD, Without JVD or thyroid abnormality Respiratory: Diminished, Expiratory wheezes (bilateral) Cardiovascular: Regular rate/rhythm, Normal S1 S2 Gastrointestinal: Normal bowel sounds, No tenderness Musculoskeletal: No tenderness Integumentary: No rashes Neurological: Normal speech, Normal strength at 5/5 x4 extr, Normal tone, Normal affect Lymphatics: No axilla or inguinal lymphadenopathy - Studies Laboratory Data (last 24 hrs) 04/30/19 20:14: WBC 8.3, Hgb 12.7, Hct 37.7, Plt Count 336 04/30/19 20:14: Sodium 136, Potassium 3.6, BUN 7, Creatinine 0.62, Glucose 101 Assessment and Plan - Problems (Diagnosis) (1) COPD exacerbation Onset Date: 10/04/18 Current Visit: No Status: Acute (2) Alcohol abuse Onset Date: 01/31/17 Current Visit: No Status: Chronic (3) Former smoker Onset Date: 01/31/17 Current Visit: No Status: Chronic - Plan Will admit the patient due to COPD exacerbation. CXR shows no acute infiltrate, WBC normal count, will order procalcitonin, continue breathing treatments, IV steroids, O2 support. Consult Dr Brand. - Advance Directives Does patient have a Living Will: No Does patient have a Durable POA for Healthcare: No - Code Status/Comfort Care Code Status Assessed: Yes Code Status: Full Code
[2019-04-30 22:46] LABS: Arterial Blood Carboxyhemoglob 1.1 % (0-1.5); Blood Gas Oxyhemoglobin 90.2 % (94-97); Blood O2 Saturation 91.9 % (92-98.5)
[2019-04-30] MEDS ORDERED: ACETAMINOPHEN 500 MG TAB PO PRN (22:56)
[2019-04-30] MEDS ORDERED: IPRATROPIUM BROM 0.5MG/2.5ML NEB PRN (22:56)
[2019-04-30] MEDS ORDERED: ALBUTEROL 2.5 MG/3 ML NEB SOL NEB PRN (22:56)
[2019-04-30] MEDS ORDERED: ONDANSETRON 4 MG/2 ML VIAL IV PRN (22:56)
[2019-04-30 23:39] VITALS: BMI 28.7
[2019-05-01] MEDS: METHYLPREDNISOLONE 40 MG INJ IV SCH ×3 (00:25→12:08)
[2019-05-01] MEDS: NA CHLORIDE 0.9% 1,000 ML IV SCH ×2 (00:27→08:59)
[2019-05-01 06:12] LABS: Absolute Lymphocytes (CBC) 0.5 K/uL (0.7-4.9); Basophils % 0.2 % (0-1.3); Eosinophils % 0.2 % (0-4.4); Hematocrit 35.8 % (36.0-45.0); Lymphocytes % 7.4 % (15.3-44.8); MPV 8.8 fL (7.6-11.3); RBC Red Blood Cell Count 3.66 M/uL (3.86-4.86)
[2019-05-01 06:24] LABS: BUN Blood Urea Nitrogen 11 mg/dL (7-18); Bicarbonate 26 mmol/L (21-32); Glucose Level 208 mg/dL (74-106); Potassium 4.6 mmol/L (3.5-5.1); Sodium Level 139 mmol/L (136-145)
[2019-05-01 06:33] VITALS: O2SAT 93
[2019-05-01] MEDS ORDERED: PNEUMOCOCCAL VACCINE 0.5 ML IMVAC ONE (08:00)
--- NOTE | 2019-05-01 08:13 | EKG ---
Test Date: 2019-04-30 Test Time: 20:01:09 Security Assistant: LATOSHA MEASUREMENT RESULTS: Intervals: Rate: 90 TX: 122 QRSD: 84 QT: 364 QTc: 445 [place]: P: 82 TX: 122 QRS: 88 T: 55 INTERPRETIVE STATEMENTS: Normal sinus rhythm Normal ECG Compared to ECG 02/09/2019 05:51:14 Sinus tachycardia no longer present Atrial abnormality no longer present Myocardial infarct finding no longer present Electronically Signed On 05-01-19 08:11:28 CDT by Danie Davis
[2019-05-01 08:24] LABS: Blood Morphology Comment NOT SEEN (NOT SEEN); Platelet Estimate ADEQ
--- NOTE | 2019-05-01 08:30 | P.CNS ---
Date of Consult: 04/25/19 Chief Complaint: COPD exacerbation History of Present Illness: Patient is 53 years of age admitted with sudden onset of shortness of breath she has a history of COPD frequent exacerbation felt an intense pressure in her chest patient uses flow and nebulizers at home denies any fever chills cough sputum or hemoptysis Allergies codeine [Codeine] Adverse Reaction (Mild, Verified 12/20/18 19:55) Hives/Rash Home Medications: Omeprazole Magnesium [Prilosec Otc] 20 mg PO DAILY 10/03/18 Albuterol Sulfate [Proair Hfa] 8.5 gm IH TID PRN #1 hfa.aer.ad 10/05/18 Fluticasone/Salmeterol [Airduo Respiclick 113-14 Mcg] 2 each IH BID #1 aer.pow.ba 10/05/18 Ascorbic Acid [Vitamin C*] 1 tab PO DAILY 02/09/19 Aspirin Chewable [Aspirin Chewable*] 81 mg PO DAILY 02/09/19 Calcium Carbonate [Calcium] 500 mg PO DAILY 02/09/19 Thiamine HCl [Vitamin B-1*] 100 mg PO DAILY #30 tablet 02/10/19 - Past Medical/Surgical History Diabetic: No -: COPD -: Alcohol abuse -: Former tobacco abuse -: Tubal ligation -: left ankle fracture Psychosocial/ Personal History: She is , she has 2 children. She does not work. - Family History Mother Medical History: Other (see notes) Notes: No health problems at this time. Father Medical History: Stroke, Cancer Notes: bone cancer - Social History Smoking Status: Former smoker Alcohol use: Yes CD- Drugs: No Caffeine use: Yes Place of Residence: Home Review of Systems General: Weakness Respiratory: Cough, Shortness of Breath Physical Examination Temp Pulse Resp BP Pulse Ox 97.5 F 90 18 109/58 L 05/01/19 04:00 05/01/19 04:00 05/01/19 04:00 05/01/19 04:00 General: Alert, Oriented x3 Neck: Supple Respiratory: Clear to auscultation bilaterally, Diminished, Expiratory wheezes Cardiovascular: No edema, Regular rate/rhythm Gastrointestinal: Normal bowel sounds, Soft and benign Laboratory Data (last 24 hrs) 04/30/19 20:14: WBC 8.3, Hgb 12.7, Hct 37.7, Plt Count 336 04/30/19 20:14: Sodium 136, Potassium 3.6, BUN 7, Creatinine 0.62, Glucose 101 - Problems (1) COPD exacerbation Onset Date: 10/04/18 Current Visit: No Status: Acute Plan: Patient is 53 years of age admitted with the worsening chest discomfort shortness of breath probably COPD exacerbations chest x-rays clear labs unremarkable possible discharge home he needs a supply of prednisone to take 10 mg once a twice a day patient to stop by my office and pick remover a sample of some bronchodilators she only takes Flovent
[2019-05-01] MEDS ORDERED: ENOXAPARIN 40 MG/0.4 ML SQ SCH (09:00)
[2019-05-01 09:47] LABS: Urine Appearance CLEAR; Urine Bilirubin NEGATIVE (NEG); Urine Blood NEGATIVE (NEG); Urine Color YELLOW; Urine Glucose 1+ (NEG); Urine Protein NEGATIVE (NEG); Urine Specific Gravity 1.015 (1.005-1.030); Urine Urobilinogen 0.2 mg/dL (0.2-1.0)
[2019-05-01 09:48] LABS: Urine Microscopic Reflex NO UMIC
[2019-05-01 12:02] VITALS: BP 117/60; TEMP 97.5
[2019-05-01] MEDS ORDERED: FLUTICASONE IH SCH (21:00)
[2019-05-01] MEDS ORDERED: SALMETEROL IH SCH (21:00)
--- NOTE | 2019-05-02 02:16 | DS ---
Date of Discharge: 05/01/2019 Consultants: Dr. Brand with Pulmonology. Discharge Diagnoses: 1.Acute COPD exacerbation. 2.Alcohol abuse. 3.Former smoker. Hospital Course: The patient is a 53-year-old female with past medical history of COPD, who comes in with progressive shortness of breath. The patient's chest x-ray was clear. She did have bronchospa sm. She was started on nebulizer treatments and IV steroids. The patient did require supplemental o xygen initially. She was able to be weaned off and did well. She remained afebrile, had no signs of sepsis. The patient was seen by her creative writing teacher, Dr. Brand, who cleared the patient for discha rge. She will need to stop by his office to crop picker samples of inhalers. The patient was then disch arged home in a stable condition. Activity: No strenuous activity. Medications: As per medication reconciliation list. Followup: Follow up with primary care physician in 2-3 days. Follow up with creative writing teacher, Dr. Dereck steinberg, in 2 weeks. Return to ER for worsening condition. Diet: Heart-healthy, calorie-restricted diet. Physical Examination: General: Awake, alert, oriented x3. No acute distress. CV: S1, S2. No murmurs. Respiratory: Moving air well bilaterally. Minimal wheezing. Gastrointestinal: Abdomen is soft, nontender, nondistended. Positive bowel sounds. Extremities: No clubbing, cyanosis, or edema. Neuro: Nonfocal. SA/MODL Voice ID: [id number] Report ID: [id number]
[2019-05-02] MEDS ORDERED: PANTOPRAZOLE 40MG TABLET PO SCH (06:30)
[2019-05-02] MEDS ORDERED: ASPIRIN 81 MG CHEWABLE TABLET PO SCH (09:00)
[2019-05-02] MEDS ORDERED: THIAMINE HCL 100 MG TABLET PO SCH (09:00)
== END 2019-05-01 15:55 | disposition home or self-care (01) ==
LOC: ER 19:48 → ERHOLD 22:43 → 2ND 22:44
PROVIDERS: ADMIT Internal Medicine; ATTEND Internal Medicine
DX: J44.1 Chronic obstructive pulmonary disease with (acute) exacerbation (principal); F10.10 Alcohol abuse, uncomplicated; Z87.891 Personal history of nicotine dependence
CPT/HCPCS: 36415; 71045; 80048; 81003; 82805; 83735; 83880; 84145; 84484; 85025; 93005; 94640; 94760; 96360; 99285; G0378; J1650; J2405; J2920; J7030; J7512

== ENCOUNTER 2019-05-18 10:38 | Observation (INO) | payer SELFPAY ==
[2019-05-18] MEDS ORDERED: METHYLPREDNISOLONE 125 MG INJ ONE (11:04)
[2019-05-18] MEDS ORDERED: IPRATROPIUM BROM 0.5MG/2.5ML ONE (11:04)
[2019-05-18] MEDS ORDERED: LEVALBUTEROL 1.25 MG/3 ML NEB ONE (11:04)
[2019-05-18] MEDS ORDERED: Levofloxacin500mg IV 500 MG/100 ML BAG IV ONE (11:05)
[2019-05-18] MEDS ORDERED: FAMOTIDINE 20 MG/2 ML VIAL IV ONE (11:05)
[2019-05-18 11:13] LABS: Absolute Lymphocytes (CBC) 1.6 K/uL (0.7-4.9); Basophils % 0.7 % (0-1.3); Lymphocytes % 15.9 % (15.3-44.8); MPV 8.8 fL (7.6-11.3); RBC Red Blood Cell Count 4.09 M/uL (3.86-4.86)
[2019-05-18 11:14] LABS: Protime INR 0.94
[2019-05-18 11:32] LABS: ALT/SGPT 24 U/L (12-78); AST/SGOT 16 U/L (15-37); Albumin 4.3 g/dL (3.4-5.0); Alkaline Phosphatase 92 U/L (45-117); BUN Blood Urea Nitrogen 7 mg/dL (7-18); Bicarbonate 25 mmol/L (21-32); Bilirubin Direct 0.1 mg/dL (0-0.2); Bilirubin Total 0.4 mg/dL (0.2-1.0); Glucose Level 109 mg/dL (74-106); Magnesium 2.1 mg/dL (1.8-2.4); NT PRO-BNP 163 pg/mL (<125); Potassium 4.3 mmol/L (3.5-5.1); Protein, Total 8.3 g/dL (6.4-8.2); Sodium Level 139 mmol/L (136-145); Troponin (Emerg Dept Use Only) < 0.02 ng/mL (0.0-0.045)
--- NOTE | 2019-05-18 11:35 | ER ---
Nurse's Notes [facility] Name: Elizabeth Ny Age: 53 yrs Sex: Female : 1965 Arrival Date: 05/18/2019 Time: 10:39 Bed 3 Private MD: Diagnosis: Hypoxemia;Chronic obstructive pulmonary disease with (acute) exacerbation Presentation: 05/18 10:43 Presenting complaint: Patient states: difficulty breathing that began last night. Pt ss has a history of COPD. Transition of care: patient was not received from another setting of care. Onset of symptoms was May 17, 2019. Risk Assessment: Do you want to hurt yourself or someone else? Patient reports no desire to harm self or others. Initial Sepsis Screen: Does the patient meet any 2 criteria? RR > 20 per min. Does the patient have a suspected source of infection? No. Patient's initial sepsis screen is negative. Care prior to arrival: None. 10:43 Method Of Arrival: Wheelchair ss 10:43 Acuity: CAROLYN 2 ss Historical: - Allergies: 10:45 Codeine; ss - PMHx: 10:45 COPD; ss - PSHx: 10:45 Tubal ligation; ss - Immunization history:: Adult Immunizations up to date. - Social history:: Smoking status: Patient/guardian denies using tobacco, the patient reports quitting approximately 3 years ago. - Ebola Screening: : Patient denies exposure to infectious person Patient denies travel to an Ebola-affected area in the 21 days before illness onset. - Family history:: not pertinent. Screenin:40 Abuse screen: Denies threats or abuse. Denies injuries from another. Nutritional sv screening: No deficits noted. Tuberculosis screening: No symptoms or risk factors identified. Fall Risk None identified. Assessment: 10:40 General: Appears distressed, uncomfortable, well developed, Behavior is cooperative, sv anxious. Pain: Denies pain. Neuro: Level of Consciousness is awake, alert, obeys commands, Oriented to person, place, time, situation, Moves all extremities. Full function Speech gets out of breath when speaking. Cardiovascular: Patient's skin is warm and dry. Pulses are 3+ in right radial artery and left radial artery. Respiratory: Airway is patent Respiratory effort is labored, pursed lip, shallow, Respiratory pattern is symmetrical, tachypnea Breath sounds are diminished bilaterally. Breath sounds with wheezes bilaterally. Derm: Skin is pink, warm \T\ dry. Musculoskeletal: Range of motion: intact in all extremities. 11:00 Reassessment: Pt placed on BIPAP by Almaz MAYER. sv 11:38 Reassessment: Patient appears in no apparent distress at this time. Patient and/or sv family updated on plan of care and expected duration. Pain level reassessed. Patient is alert, oriented x 3, equal unlabored respirations, skin warm/dry/pink. Reassessment: Patient states feeling better. Patient states symptoms have improved. Respiratory: Airway is patent Respiratory effort is even, unlabored, Respiratory pattern is symmetrical, tachypnea. 13:00 Reassessment: Patient appears in no apparent distress at this time. Patient and/or sv family updated on plan of care and expected duration. Pain level reassessed. Patient is alert, oriented x 3, equal unlabored respirations, skin warm/dry/pink. Patient states feeling better. Patient states symptoms have improved. 14:00 Reassessment: Patient appears in no apparent distress at this time. Patient and/or sv family updated on plan of care and expected duration. Pain level reassessed. Patient is alert, oriented x 3, equal unlabored respirations, skin warm/dry/pink. Patient states feeling better. Patient states symptoms have improved. Vital Signs: 10:45 BP 163 / 93; Pulse 111; Resp 30; Temp 98.6(TE); Pulse Ox 93% on R/A; Weight 74.84 kg; ss Height 5 ft. 3 in. (160.02 cm); Pain 0/10; 11:19 BP 119 / 70; Pulse 88; Resp 20; Pulse Ox 100% on 35% BiPAP; sv 11:38 BP 103 / 75; Pulse 97; Resp 18; Pulse Ox 100% on 35% BiPAP; sv 12:36 BP 126 / 67; Pulse 97; Resp 20; Pulse Ox 98% on 2 lpm NC; sv 13:30 BP 128 / 70; Pulse 98; Resp 20; Pulse Ox 98% on 2 lpm NC; sv 14:00 BP 122 / 68; Pulse 98; Resp 20; Pulse Ox 97% on 2 lpm NC; sv 10:45 Body Mass Index 29.23 (74.84 kg, 160.02 cm) ED Course: 10:39 Patient arrived in ED. as 10:39 Angelica Mckeon, RN is Primary Nurse. sv 10:40 Patient has correct armband on for positive identification. Bed in low position. Call sv light in reach. Adult w/ patient. ekg monitor on. Pulse ox on. NIBP on. Door closed. Warm blanket given. Head of bed elevated. 10:42 Jeyson Cobb MD is Attending Physician. helga 10:45 Triage completed. ss 10:45 Arm band placed on left wrist. ss 10:50 Initial lab(s) drawn, by me, sent to lab. Flu and/or RSV swab sent to lab. Inserted sv saline lock: 20 gauge in right forearm, using aseptic technique. Blood collected. Flushed right forearm with 5 ml normal saline. 10:58 First set of blood cultures drawn by me, by venipuncture 23G to left hand. dh3 11:04 EKG done, by cardiac catheterization technologist. reviewed by Jeyson Cobb MD. at1 11:11 BIPAP Sent. sv 11:15 Awaiting lab results, Awaiting for x-ray. sv 11:21 X-ray(s) taken. sv 11:31 Hung Box MD is Hospitalizing Provider. helga 11:32 Second set of blood cultures drawn by pr, by venipuncture 23G to left forearm. dh3 11:39 XRAY Chest (1 view) In Process Unspecified. EDMS 11:39 Awaiting lab results, Awaiting radiology results. Awaiting disposition. sv 14:15 No provider procedures requiring assistance completed. Patient admitted, IV remains in sv place. intact. Administered Medications: 11:00 Drug: Xopenex 3.75 mg Route: Inhalation; sv 11:00 Drug: AtroVENT Aerosol 0.5 mg Route: Inhalation; sv 11:00 Drug: Pepcid 20 mg Route: IVP; Site: right forearm; sv 11:16 Follow up: Response: No adverse reaction sv 11:02 Drug: SOLU-Medrol 125 mg Route: IVP; Site: right forearm; sv 11:15 Follow up: Response: No adverse reaction sv 11:37 Drug: levofloxacin 500 mg Volume: 100 ml; Route: IVPB; Infused Over: 60 mins; Site: sv right forearm; Outcome: 11:34 Decision to Hospitalize by Provider. helga 14:15 Admitted to Tele accompanied by nurse, via wheelchair, with oxygen, Report called to ed Carrasco RN 14:15 Condition: stable 14:15 Instructed on the need for admit. 14:17 Patient left the ED. ph Signatures: Dispatcher [employer] Angelica Cope RN RN sv Anderson, Corey, MD MD cha Martinez, Amelia as Smirch, Shelby, RN RN Kymberly Brock, tug boat captain EKG Tat1 Edna Manuel RN RN Chantale Fuentes 3 Corrections: (The following items were deleted from the chart) 11:15 10:40 Respiratory: Airway is patent Respiratory effort is labored, pursed lip, shallow, sv Respiratory pattern is symmetrical, tachypnea Breath sounds are diminished bilaterally. sv 11:38 11:19 BP 119 / 70; Pulse 88bpm; Resp 20bpm; Pulse Ox 100% BiPAP; sv sv
--- NOTE | 2019-05-18 11:35 | EDPHYS ---
Physician Documentation [facility] Name: Elizabeth Ny Age: 53 yrs Sex: Female : 1965 Arrival Date: 05/18/2019 Time: 10:39 Bed 3 Private MD: ED Physician Jeyson Cobb HPI: 05/18 10:47 This 53 yrs old Female presents to ER via Wheelchair with complaints of COPD helga Exacerbation. 10:47 The patient has shortness of breath at rest, with light activity. Onset: The helga symptoms/episode began/occurred 3 day(s) ago. Duration: The symptoms are chronic, and have existed for years, are continuous, and are steadily getting worse. The patient's shortness of breath has no apparent modifying factors. The patient presents to the emergency department with wheezing, Current therapy: albuterol nebs. Modifying factors: The symptoms are alleviated by nothing, the symptoms are aggravated by nothing. The patient or guardian reports cough, described as mild, difficulty breathing, flu symptoms, myalgias. Associated signs and symptoms: The patient has no apparent associated signs or symptoms. Historical: - Allergies: 10:45 Codeine; ss - PMHx: 10:45 COPD; ss - PSHx: 10:45 Tubal ligation; ss - Immunization history:: Adult Immunizations up to date. - Social history:: Smoking status: Patient/guardian denies using tobacco, the patient reports quitting approximately 3 years ago. - Ebola Screening: : Patient denies exposure to infectious person Patient denies travel to an Ebola-affected area in the 21 days before illness onset. - Family history:: not pertinent. ROS: 10:47 Constitutional: Negative for fever, chills, and weight loss, Eyes: Negative for injury, helga pain, redness, and discharge, ENT: Negative for injury, pain, and discharge, Neck: Negative for injury, pain, and swelling, Cardiovascular: Negative for chest pain, palpitations, and edema, Abdomen/GI: Negative for abdominal pain, nausea, vomiting, diarrhea, and constipation, Back: Negative for injury and pain, : Negative for injury, bleeding, discharge, and swelling, MS/Extremity: Negative for injury and deformity, Skin: Negative for injury, rash, and discoloration, Neuro: Negative for headache, weakness, numbness, tingling, and seizure, Psych: Negative for depression, anxiety, suicide ideation, homicidal ideation, and hallucinations, Allergy/Immunology: Negative for hives, rash, and allergies, Endocrine: Negative for neck swelling, polydipsia, polyuria, polyphagia, and marked weight changes, Hematologic/Lymphatic: Negative for swollen nodes, abnormal bleeding, and unusual bruising. 10:47 Respiratory: Positive for cough, shortness of breath, wheezing, inspiratory, expiratory. Exam: 10:47 Constitutional: This is a well developed, well nourished patient who is awake, alert, helga and in no acute distress. Head/Face: Normocephalic, atraumatic. Eyes: Pupils equal round and reactive to light, extra-ocular motions intact. Lids and lashes normal. Conjunctiva and sclera are non-icteric and not injected. Cornea within normal limits. Periorbital areas with no swelling, redness, or edema. ENT: Nares patent. No nasal discharge, no septal abnormalities noted. Tympanic membranes are normal and external auditory canals are clear. Oropharynx with no redness, swelling, or masses, exudates, or evidence of obstruction, uvula midline. Mucous membranes moist. Neck: Trachea midline, no thyromegaly or masses palpated, and no cervical lymphadenopathy. Supple, full range of motion without nuchal rigidity, or vertebral point tenderness. No Meningismus. Chest/axilla: Normal chest wall appearance and motion. Nontender with no deformity. No lesions are appreciated. Abdomen/GI: Soft, non-tender, with normal bowel sounds. No distension or tympany. No guarding or rebound. No evidence of tenderness throughout. Back: No spinal tenderness. No costovertebral tenderness. Full range of motion. Female : Normal external genitalia. Skin: Warm, dry with normal turgor. Normal color with no rashes, no lesions, and no evidence of cellulitis. MS/ Extremity: Pulses equal, no cyanosis. Neurovascular intact. Full, normal range of motion. Neuro: Awake and alert, GCS 15, oriented to person, place, time, and situation. Cranial nerves II-XII grossly intact. Motor strength 5/5 in all extremities. Sensory grossly intact. Cerebellar exam normal. Normal gait. Psych: Awake, alert, with orientation to person, place and time. Behavior, mood, and affect are within normal limits. 10:47 Cardiovascular: Rate: normal, Rhythm: regular, Heart sounds: normal, Edema: is not appreciated, JVD: is not appreciated. 10:47 Respiratory: moderate respiratory distress is noted, Respirations: normal, Breath sounds: decreased breath sounds, rhonchi, + upper airway congestion. wheezing: expiratory Respiratory rate: 26 Vital Signs: 10:45 BP 163 / 93; Pulse 111; Resp 30; Temp 98.6(TE); Pulse Ox 93% on R/A; Weight 74.84 kg; ss Height 5 ft. 3 in. (160.02 cm); Pain 0/10; 11:19 BP 119 / 70; Pulse 88; Resp 20; Pulse Ox 100% on 35% BiPAP; sv 11:38 BP 103 / 75; Pulse 97; Resp 18; Pulse Ox 100% on 35% BiPAP; sv 12:36 BP 126 / 67; Pulse 97; Resp 20; Pulse Ox 98% on 2 lpm NC; sv 13:30 BP 128 / 70; Pulse 98; Resp 20; Pulse Ox 98% on 2 lpm NC; sv 14:00 BP 122 / 68; Pulse 98; Resp 20; Pulse Ox 97% on 2 lpm NC; sv 10:45 Body Mass Index 29.23 (74.84 kg, 160.02 cm) MDM: 10:42 Patient medically screened. [facility] 10:49 Data reviewed: vital signs, nurses notes, lab test result(s), EKG, radiologic studies, helga plain films. 05/18 10:46 Order name: Basic Metabolic Panel [facility] 05/18 10:46 Order name: CBC with Diff; Complete Time: 11:30 [facility] 05/18 10:46 Order name: LFT's [facility] 05/18 10:46 Order name: Magnesium [facility] 05/18 10:46 Order name: NT PRO-BNP [facility] 05/18 10:46 Order name: PT-INR; Complete Time: 11:30 [facility] 05/18 10:46 Order name: Troponin (emerg Dept Use Only) [facility] 05/18 10:46 Order name: XRAY Chest (1 view) [facility] 05/18 10:46 Order name: Blood Culture Adult (2) [facility] 05/18 10:46 Order name: Influenza Screen (a \T\ B); Complete Time: 11:30 [facility] 05/18 10:46 Order name: Urine Culture [facility] 05/18 10:46 Order name: BIPAP [facility] 05/18 13:02 Order name: Urine Dipstick--Ancillary (enter results) 05/18 13:50 Order name: Urine Dipstick-Ancillary [facility] 05/18 10:46 Order name: EKG; Complete Time: 10:47 [facility] 05/18 10:46 Order name: Cardiac monitoring; Complete Time: 11:12 [facility] 05/18 10:46 Order name: EKG - Nurse/Tech; Complete Time: 11:12 [facility] 05/18 10:46 Order name: IV Saline Lock; Complete Time: 11:12 [facility] 05/18 10:46 Order name: Labs collected and sent; Complete Time: 11:12 [facility] 05/18 10:46 Order name: O2 Per Protocol; Complete Time: 11:12 [facility] 05/18 10:46 Order name: O2 Sat Monitoring; Complete Time: 11:12 [facility] 05/18 10:46 Order name: Urine Dipstick-Ancillary (obtain specimen); Complete Time: 12:34 [facility] Administered Medications: 11:00 Drug: Xopenex 3.75 mg Route: Inhalation; sv 11:00 Drug: AtroVENT Aerosol 0.5 mg Route: Inhalation; sv 11:00 Drug: Pepcid 20 mg Route: IVP; Site: right forearm; sv 11:16 Follow up: Response: No adverse reaction sv 11:02 Drug: SOLU-Medrol 125 mg Route: IVP; Site: right forearm; sv 11:15 Follow up: Response: No adverse reaction sv 11:37 Drug: levofloxacin 500 mg Volume: 100 ml; Route: IVPB; Infused Over: 60 mins; Site: sv right forearm; Disposition: 05/18/19 11:34 Hospitalization ordered by Hung Box for Inpatient Admission. Preliminary diagnosis are Hypoxemia, Chronic obstructive pulmonary disease with (acute) exacerbation. - Bed requested for Telemetry/MedSurg (Inpatient). - Status is Inpatient Admission. ph - Condition is Fair. - Problem is new. - Symptoms have improved. UTI on Admission? No Signatures: Dispatcher [employer] EDCO Angelica Mckeon RN RN sv Anderson, Corey, MD MD cha Smirch, Shelby, RN RN Edna Manuel RN RN Bunny Baxter RN RN ja1 Corrections: (The following items were deleted from the chart) 13:31 11:34 Hospitalization Ordered by Hung Box MD for Inpatient Admission. Preliminary ja1 diagnosis is Hypoxemia; Chronic obstructive pulmonary disease with (acute) exacerbation. Bed requested for Telemetry/MedSurg (Inpatient). Status is Inpatient Admission. Condition is Fair. Problem is new. Symptoms have improved. UTI on Admission? No. helga 14:17 13:31 05/18/2019 11:34 Hospitalization Ordered by Hung Box MD for Inpatient ph Admission. Preliminary diagnosis is Hypoxemia; Chronic obstructive pulmonary disease with (acute) exacerbation. Bed requested for Telemetry/MedSurg (Inpatient). Status is Inpatient Admission. Condition is Fair. Problem is new. Symptoms have improved. UTI on Admission? No. ja1
--- NOTE | 2019-05-18 11:56 | RAD REPORT ---
EXAM DESCRIPTION: RAD - Chest Single View - 05/18/2019 11:37 am CLINICAL HISTORY: COPD, difficulty breathing COMPARISON: April 30, 2019 TECHNIQUE: AP portable chest image was obtained 1123 hours . FINDINGS: No focal infiltrate or mass. No failure or volume overload finding. Trachea is midline. In terstitial pattern matches the comparison. Heart and vasculature are normal. No measurable pleural effusion and no pneumothorax. No acute bony abnormality seen. No acute aortic findings suspected. IMPRESSION: No acute cardiopulmonary process. No significant interval change noted from April 30.
--- NOTE | 2019-05-18 13:32 | EKG ---
Test Date: 2019-05-18 Test Time: 11:01:49 Restorative Care Technician: MIGUEL MEASUREMENT RESULTS: Intervals: Rate: 98 WI: 116 QRSD: 82 QT: 340 QTc: 434 [place]: P: 72 WI: 116 QRS: 86 T: 59 INTERPRETIVE STATEMENTS: Normal sinus rhythm Normal ECG Compared to ECG 04/30/2019 20:01:09 No significant changes Electronically Signed On 05-18-19 13:31:58 CDT by Jose Alvarado
[2019-05-18 13:50] LABS: Urine Blood TRACE (NEG); Urine Glucose NEGATIVE (NEG); Urine Protein 1+ (NEG)
[2019-05-18] MEDS: ALBUTEROL 2.5 MG/3 ML NEB SOL NEB SCH ×2 (14:32→20:00)
[2019-05-18] MEDS ORDERED: ONDANSETRON 4 MG/2 ML VIAL IV PRN (14:32)
[2019-05-18] MEDS ORDERED: ACETAMINOPHEN 500 MG TAB PO PRN (14:32)
[2019-05-18] MEDS: IPRATROPIUM BROM 0.5MG/2.5ML NEB SCH ×2 (14:32→20:00)
[2019-05-18 15:05] VITALS: BMI 29.2
[2019-05-18] MEDS: ENOXAPARIN 40 MG/0.4 ML SQ SCH (16:47)
[2019-05-18] MEDS: METHYLPREDNISOLONE 40 MG INJ IV SCH (16:47)
[2019-05-19] MEDS: METHYLPREDNISOLONE 40 MG INJ IV SCH ×2 (00:14→07:54)
[2019-05-19] MEDS: ALBUTEROL 2.5 MG/3 ML NEB SOL NEB SCH ×2 (02:00→08:40)
[2019-05-19] MEDS: IPRATROPIUM BROM 0.5MG/2.5ML NEB SCH ×2 (02:00→08:40)
--- NOTE | 2019-05-19 02:32 | HP ---
Date of Admission: 05/18/2019 Chief Complaint: Shortness of breath. History Of Present Illness: The patient is a 53-year-old female with past medical history of COPD, w [place] was recently in the hospital, discharged on 05/01/2019, comes in with worsening shortness of breat h. Patient on previous admission was set up with inhalers by Dr. Brand. She stated that she has been having shortness of breath. Inhalers have not helped her. She did report some sputum, sore thr oat, and increased cough. No fevers or chills. Patient's symptoms are constant, moderate, progressi vely worsening. In the ER, her white blood cell count was normal. Chest x-ray showed no acute cardi opulmonary process. Patient was admitted to the hospital for further evaluation. Past Medical History: COPD, alcohol abuse, former tobacco use. Past Surgical History: Tubal ligation, left ankle fracture. Allergies: CODEINE. Medications: List reviewed. Social History: Patient is , has 2 children. Does not work. Former smoker. Does drink alc ohol occasionally. Family History: Mother did not have any health problems. Father had stroke and bone cancer. Review of Systems: An 11-point system reviewed, negative except as per HPI. Physical Examination: Vital Signs: Blood pressure 163/93, pulse 111, respirations 30, temperature 98.6, O2 93% on room air . General: Awake, alert, oriented x3, ill-appearing female, in mild respiratory distress. HEENT: Normocephalic, atraumatic. PERRLA. EOMI. Moist mucous membranes. Oropharynx is clear. Co njunctivae anicteric. Neck: Supple. No JVD. Trachea midline. Cardiovascular: S1, S2. Sinus tachycardia. Peripheral pulses present. Respiratory: Diminished breath sounds, diffuse wheezing heard. No stridor. Patient is tachypneic w ith use of accessory muscles. Gastrointestinal: Abdomen is soft, nontender, nondistended. Positive bowel sounds. No guarding or rigidity. Extremities: No clubbing, cyanosis, or edema. Neurologic: Cranial nerves 2 through 12 intact grossly. No focal neurological deficit. Speech is n ormal. Skin: No rashes. Normal skin turgor. Laboratory Data: Sodium 139, potassium 4.3 chloride 105, CO2 of 25, BUN 7, creatinine 0.7, glucose 1 09, calcium 9.4, magnesium 2.1, troponin 0.02. WBC 10, H and H 13.6 and 40, platelets 353. INR 0.94 . UA negative. Influenza screen negative. Chest x-ray shows no acute cardiopulmonary process. No significant change from April 30, personally reviewed. Assessment And Plan: A 53-year-old female with: 1.Acute chronic obstructive pulmonary disease exacerbation. We will continue with nebulizer treatme nts, IV steroids, and supplemental oxygen. Patient initially was on BiPAP. We will wean down to peg al cannula as tolerated. 2.Acute respiratory distress with hypoxia, currently on BiPAP secondary to above. 3.History of alcohol abuse. 4.Overweight, BMI 29.2. Plan: Admit the patient to Med/Surg, place as observation. PINA Voice ID: [id number]
[2019-05-19 05:58] LABS: Absolute Lymphocytes (CBC) 0.9 K/uL (0.7-4.9); Basophils % 0.2 % (0-1.3); Hematocrit 37.2 % (36.0-45.0); Lymphocytes % 8.9 % (15.3-44.8); RBC Red Blood Cell Count 3.85 M/uL (3.86-4.86)
[2019-05-19 06:14] LABS: BUN Blood Urea Nitrogen 8 mg/dL (7-18); Bicarbonate 24 mmol/L (21-32); Glucose Level 160 mg/dL (74-106); Sodium Level 137 mmol/L (136-145)
[2019-05-19 06:24] LABS: Blood Morphology Comment NOT SEEN (NOT SEEN); Platelet Estimate ADEQ
[2019-05-19] MEDS ORDERED: PANTOPRAZOLE 40MG TABLET PO SCH (07:30)
[2019-05-19] MEDS: ENOXAPARIN 40 MG/0.4 ML SQ SCH (07:54)
[2019-05-19] MEDS ORDERED: HOME MED 1 EA UNK (Omeprazole Magnesium [Prilosec Otc] 20 MG) PO SCH (09:00)
[2019-05-19] MEDS ORDERED: ASPIRIN EC 81 MG TAB PO SCH (09:00)
--- NOTE | 2019-05-19 11:23 | DS ---
Date of Discharge: 05/19/2019 Discharge Diagnoses: 1. Acute chronic obstructive pulmonary disease exacerbation, improving. 2. Hypoxia. 3. Acute respiratory distress. 4. History of alcohol abuse. 5. Overweight. BMI 29.2. Hospital Course: Patient is a 53-year-old female who was recently discharged from the hospital on 05/01/2019 with similar symptoms, comes in with worsening shortness of breath. Chest x-ray was clear, did not show any infiltrates. Her white blood cell count was normal. Did not have any elevated procalcitonin level, did not appear to be septic. Pulmonary infection was found. The patient states that she did bulk picker inhalers from Dr. Brand's office. However, she had worsening shortness of breath. She improved with steroid treatments and nebulizer treatments. She was able to be weaned off oxygen. She was able to ambulate without difficulty. Her influenza screen was negative. The patient was then cleared for discharge and was sent home in a stable condition. Activity: No strenuous activity. Followup: Follow up with primary care physician in 2-3 days. Follow up with commercial lending relationship manager, Dr. Brand in 2 weeks. Return to ER for worsening condition. Medications: As per medication reconciliation list. Diet: calorie restricted diet. Physical Examination: General: Awake, alert and oriented x3. No acute distress. CV: S1, S2. Respiratory: Moving air well bilaterally, minimal wheezing. Gastrointestinal: Abdomen is soft, nontender, nondistended. Positive bowel sounds. Extremities: No clubbing, cyanosis, or edema. Neurologic: Nonfocal. SA/MODL Voice ID: [id number] Report ID: [id number] FRANKIE
[2019-05-19 13:50] VITALS: BP 92/58; TEMP 98.6
[2019-05-19 17:00] VITALS: O2SAT 96
== END 2019-05-19 12:15 | disposition home or self-care (01) ==
LOC: ER 10:38 → INTOOBSV 12:18 → ERHOLD 12:18 → 4TH 14:13
PROVIDERS: ADMIT Family Medicine; ATTEND Family Medicine
DX: J44.1 Chronic obstructive pulmonary disease with (acute) exacerbation (principal); R09.02 Hypoxemia; R06.03 Acute respiratory distress; Z87.891 Personal history of nicotine dependence
CPT/HCPCS: 36415; 71045; 80048; 80076; 81003; 83735; 83880; 84145; 84484; 85025; 85610; 87040; 87070; 87086; 87088; 87205; 87804; 93005; 94640; 94660; 96374; 96375; 99285; G0378; J1650; J2920; J2930

== ENCOUNTER 2019-06-22 05:25 | Inpatient (IN) | payer SELFPAY ==
[2019-06-22 06:14] LABS: Arterial Blood Carboxyhemoglob 0.5 % (0-1.5); Blood Gas Oxyhemoglobin 94.4 % (94-97); Blood O2 Saturation 95.8 % (92-98.5)
--- NOTE | 2019-06-22 06:22 | ER ---
Nurse's Notes [facility] Name: Elizabeth Ny Age: 53 yrs Sex: Female : 1965 Arrival Date: 06/22/2019 Time: 05:27 Bed 3 Private MD: Diagnosis: Acute respiratory failure;Acute respiratory failure with hypercapnia;Chronic obstructive pulmonary disease with (acute) exacerbation Presentation: 06/22 05:15 Method Of Arrival: EMS: [facility] 05:15 Acuity: CAROLYN 3 fc 05:15 Presenting complaint: EMS states: that pt woke up tonight with complaints of difficulty fc breathing. EMS was toned and upon their arrival pts sats were 85% on room air and her resp rate of 40. Also increased wheezing. She attempted to do inhaler at home with no improvement. Transition of care: patient was not received from another setting of care. Onset of symptoms was June 22, 2019 at 04:00. Risk Assessment: Do you want to hurt yourself or someone else? Patient reports no desire to harm self or others. Initial Sepsis Screen: Does the patient meet any 2 criteria? RR > 20 per min. HR > 90 bpm. Yes Does the patient have a suspected source of infection? No. Patient's initial sepsis screen is negative. Care prior to arrival: Medication(s) given: Albuterol Neb x 2, Atrovent Neb x 2, Solu-Medrol 125 mg IVP and Magnesium 2 gram IVPB IV initiated. 20 GA, in the right wrist, Med neb given. Oxygen administered. via CPAP or BiPAP. 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 - Social history:: Smoking status: Patient/guardian denies using tobacco, Patient/guardian denies using alcohol, street drugs. - Ebola Screening: : Patient negative for fever greater than or equal to 101.5 degrees Fahrenheit, and additional compatible Ebola Virus Disease symptoms Patient denies exposure to infectious person Patient denies travel to an Ebola-affected area in the 21 days before illness onset. Screenin:36 Abuse screen: Denies threats or abuse. Nutritional screening: No deficits noted. fc Tuberculosis screening: No symptoms or risk factors identified. 06:23 Fall Risk Total Culver Fall Scale indicates High Risk Score (45 or more points). Side lp1 Rails Up X 2 As available patient and family educated on Fall Prevention Program and Strategies. Assessment: 05:15 General: Appears distressed, Behavior is anxious. Pain: Denies pain. Neuro: Level of lp1 Consciousness is awake, alert, obeys commands, Oriented to person, place, situation. Cardiovascular: Capillary refill < 3 seconds in bilateral fingers toes. Respiratory: Reports shortness of breath Airway is patent Respiratory effort is using tripod position, Respiratory pattern is tachypnea Breath sounds with wheezes bilaterally. Onset: The symptoms/episode began/occurred gradually, the patient has severe shortness of breath. GI: Reports nausea. : No signs and/or symptoms were reported regarding the genitourinary system. EENT: No signs and/or symptoms were reported regarding the EENT system. Derm: Skin is intact, is thin, Skin is diaphoretic, Skin is normal. Musculoskeletal: No deficits noted. 05:20 Reassessment: pt nauseous, gagging, Dr Wong notified new orders received pt medicated bb see MAR. 06:45 Reassessment: Dr. Gaona at bedside to discuss care with patient. lp1 07:00 Reassessment: RECD REPORT FROM KASSIDY CASAREZ. 53YO WF P/W SOB. ICU ADMIT FOR COPD bp EXACERBATION IN PROCESS. BIPAP IN PLACE, 35% PRESSURE 12/5, RATE 16. 07:23 Reassessment: PER PT REQUEST, BIPAP REMOVED FOR NASAL CANULA TRIAL. bp 07:45 Reassessment: ADMIT ON HOLD FOR POSSIBLE DOWNGRADE. bp Vital Signs: 05:15 BP 158 / 96; Pulse 115; Resp 26; Temp 97.7(A); Pulse Ox 100% on 75% BiPAP; Weight 74.84 fc kg (R); Height 5 ft. 3 in. (160.02 cm) (R); Pain 0/10; 06:16 BP 158 / 96; Pulse 119; Resp 24 S; Pulse Ox 100% on 50% BiPAP; bb 06:51 BP 115 / 72; Pulse 122; Resp 16; Pulse Ox 98% on 35% BiPAP; lp1 07:00 BP 118 / 70; Pulse 116; Resp 16; Pulse Ox 98% on BiPAP; bp 07:36 BP 104 / 65; Pulse 115; Resp 15; Pulse Ox 94% on 3 lpm NC; bp 08:00 BP 102 / 65; Pulse 113; Resp 15; Temp 97.7; Pulse Ox 98% on 3 lpm NC; bp 05:15 Body Mass Index 29.23 (74.84 kg, 160.02 cm) fc ED Course: 05:15 Arm band placed on Patient placed in an exam room, on a stretcher. fc 05:15 No provider procedures requiring assistance completed. Maintain EMS IV. Dressing fc intact. Good blood return noted. Site clean \T\ dry. Gauge \T\ site: 20 gauge to right wrist. 05:27 Patient arrived in ED. fc 05:30 Patrick Wong MD is Attending Physician. gs 05:35 Triage completed. fc 05:36 Patient has correct armband on for positive identification. Placed in gown. Bed in low fc position. Call light in reach. Side rails up X2. quality assurance monitor chassis on. Pulse ox on. NIBP on. 06:00 Missed attempt(s): 22 gauge in left antecubital area. lp1 06:05 Initial lab(s) drawn, by mn, sent to lab. Inserted saline lock: 20 gauge in left bb antecubital area, using aseptic technique. Blood collected. 06:05 First set of blood cultures drawn by ED staff. lp1 06:18 Kassidy Main, RN is Primary Nurse. lp1 06:19 Carlos Gaona MD is Hospitalizing Provider. gs 06:20 Second set of blood cultures drawn by ED staff. lp1 06:53 Patient admitted, IV remains in place. lp1 06:59 Primary Nurse role handed off by Kassidy Main, RN bp 06:59 Rodolfo Lechuga, LEIDA is Primary Nurse. bp Administered Medications: 05:20 Drug: Zofran 4 mg Route: IVP; Site: right wrist; bb 06:36 Follow up: Response: Nausea is decreased lp1 05:36 Drug: Albuterol - atroVENT (3:1) (2.5 mg - 0.5 mg) 3 ml Route: Nebulizer; lp1 06:53 Follow up: Response: No adverse reaction lp1 Outcome: 06:20 Decision to Hospitalize by Provider. 06:34 critical lp1 06:34 Instructed on the need for admit. 08:29 Admitted to Tele accompanied by tech, via wheelchair, room 407, with oxygen, with bp chart, Report called to RAMSES CASAREZ 08:34 Patient left the ED. bp Signatures: Loni Bowser RN RN fc Emily Ham RN RN bb Kassidy Main RN RN lp1 Patrick Wong MD MD gs Peltier, Brian, RN RN bp Corrections: (The following items were deleted from the chart) 07:36 07:23 Reassessment: PER PT REQUEST, BIPAP REMOVED FOR ROOM AIR TRIAL bp bp 08:20 07:36 BP 104 / 65; Pulse 115bpm; Resp 15bpm; Pulse Ox 94% 2 lpm Nasal Cannula; bp bp 08:20 08:00 BP 102 / 65; Pulse 113bpm; Resp 15bpm; Pulse Ox 98% 2 lpm Nasal Cannula; bp bp 08:28 08:00 BP 102 / 65; Pulse 113bpm; Resp 15bpm; Pulse Ox 98% 3 lpm Nasal Cannula; bp bp
--- NOTE | 2019-06-22 06:24 | EDPHYS ---
Physician Documentation [facility] Name: Elizabeth Ny Age: 53 yrs Sex: Female : 1965 Arrival Date: 06/22/2019 Time: 05:27 Bed 3 Private MD: ED Physician Patrick Wong HPI: 06/22 06:12 This 53 yrs old Female presents to ER via EMS with complaints of COPD gs Exacerbation. 06:12 The patient has shortness of breath at rest. Onset: The symptoms/episode began/occurred gs acutely, last night, and became worse. Duration: The symptoms are continuous. The patient's shortness of breath has no apparent modifying factors. Associated signs and symptoms: Pertinent negatives: chest pain, fever. Severity of symptoms: At their worst the symptoms were severe in the emergency department the symptoms are unchanged. The patient has experienced similar episodes in the past, multiple times. The patient has been recently been admitted at [facility], was discharged last month. 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 - Social history:: Smoking status: Patient/guardian denies using tobacco, Patient/guardian denies using alcohol, street drugs. - Ebola Screening: : Patient negative for fever greater than or equal to 101.5 degrees Fahrenheit, and additional compatible Ebola Virus Disease symptoms Patient denies exposure to infectious person Patient denies travel to an Ebola-affected area in the 21 days before illness onset. ROS: 06:12 All other systems are negative. gs Exam: 06:12 Head/Face: Normocephalic, atraumatic. Eyes: Pupils equal round and reactive to light, gs extra-ocular motions intact. Lids and lashes normal. Conjunctiva and sclera are non-icteric and not injected. Cornea within normal limits. Periorbital areas with no swelling, redness, or edema. ENT: Nares patent. No nasal discharge, no septal abnormalities noted. Tympanic membranes are normal and external auditory canals are clear. Oropharynx with no redness, swelling, or masses, exudates, or evidence of obstruction, uvula midline. Mucous membranes moist. Neck: Trachea midline, no thyromegaly or masses palpated, and no cervical lymphadenopathy. Supple, full range of motion without nuchal rigidity, or vertebral point tenderness. No Meningismus. Chest/axilla: Normal chest wall appearance and motion. Nontender with no deformity. No lesions are appreciated. Abdomen/GI: Soft, non-tender, with normal bowel sounds. No distension or tympany. No guarding or rebound. No evidence of tenderness throughout. Back: No spinal tenderness. No costovertebral tenderness. Full range of motion. Skin: Warm, dry with normal turgor. Normal color with no rashes, no lesions, and no evidence of cellulitis. MS/ Extremity: Pulses equal, no cyanosis. Neurovascular intact. Full, normal range of motion. Neuro: Awake and alert, GCS 15, oriented to person, place, time, and situation. Cranial nerves II-XII grossly intact. Motor strength 5/5 in all extremities. Sensory grossly intact. Cerebellar exam normal. Normal gait. 06:12 Constitutional: The patient appears alert, awake, in obvious distress, severely distressed. 06:12 Cardiovascular: Rate: tachycardic, Rhythm: regular, Pulses: no pulse deficits are appreciated. 06:12 Respiratory: severe repiratory distress is noted, Respirations: accessory muscle usage, tachypnea, Breath sounds: rales, rhonchi, wheezing: Vital Signs: 05:15 BP 158 / 96; Pulse 115; Resp 26; Temp 97.7(A); Pulse Ox 100% on 75% BiPAP; Weight 74.84 fc kg (R); Height 5 ft. 3 in. (160.02 cm) (R); Pain 0/10; 06:16 BP 158 / 96; Pulse 119; Resp 24 S; Pulse Ox 100% on 50% BiPAP; bb 06:51 BP 115 / 72; Pulse 122; Resp 16; Pulse Ox 98% on 35% BiPAP; lp1 07:00 BP 118 / 70; Pulse 116; Resp 16; Pulse Ox 98% on BiPAP; bp 07:36 BP 104 / 65; Pulse 115; Resp 15; Pulse Ox 94% on 3 lpm NC; bp 08:00 BP 102 / 65; Pulse 113; Resp 15; Temp 97.7; Pulse Ox 98% on 3 lpm NC; bp 05:15 Body Mass Index 29.23 (74.84 kg, 160.02 cm) fc MDM: 05:30 Patient medically screened. 06:12 Differential diagnosis: Bronchitis CHF exacerbation, Chronic Obstructive Pulmonary gs Disease Myocardial Infarction pneumonia. Data reviewed: vital signs, nurses notes, old medical records, lab test result(s), EKG, radiologic studies. Counseling: I had a detailed discussion with the patient and/or guardian regarding: the historical points, exam findings, and any diagnostic results supporting the discharge/admit diagnosis, lab results, radiology results, the need for further work-up and treatment in the hospital. Response to treatment: the patient's symptoms have markedly improved after treatment, and as a result, I will admit patient. 06/22 05:33 Order name: Basic Metabolic Panel 06/22 05:33 Order name: CBC with Diff 06/22 05:33 Order name: Troponin (emerg Dept Use Only) 06/22 05:33 Order name: ABG 06/22 05:33 Order name: Blood Culture* 06/22 06:28 Order name: ABG Arterial Blood Gas EDMT 06/22 05:33 Order name: XRAY Chest (1 view) 06/22 05:33 Order name: EKG; Complete Time: 05:35 06/22 05:33 Order name: BIPAP 06/22 06:44 Order name: CBC with Automated Diff EDMT 06/22 06:53 Order name: Basic Metabolic Panel EDMT 06/22 06:53 Order name: Troponin (Emerg Dept Use Only) EDMT 06/22 05:33 Order name: Cardiac monitoring; Complete Time: 06:15 06/22 05:33 Order name: EKG - Nurse/Tech; Complete Time: 06:15 06/22 05:33 Order name: IV Saline Lock; Complete Time: 06:15 06/22 05:33 Order name: Labs collected and sent; Complete Time: 06:15 06/22 05:33 Order name: O2 Per Protocol; Complete Time: 06:15 gs 06/22 05:33 Order name: O2 Sat Monitoring; Complete Time: 06:15 gs Administered Medications: 05:20 Drug: Zofran 4 mg Route: IVP; Site: right wrist; bb 06:36 Follow up: Response: Nausea is decreased lp1 05:36 Drug: Albuterol - atroVENT (3:1) (2.5 mg - 0.5 mg) 3 ml Route: Nebulizer; lp1 06:53 Follow up: Response: No adverse reaction lp1 Disposition: 06:12 Critical Care:. gs Disposition: 06/22/19 06:20 Hospitalization ordered by Carlos Gaona for Inpatient Admission. Preliminary diagnosis are Acute respiratory failure, Acute respiratory failure with hypercapnia, Chronic obstructive pulmonary disease with (acute) exacerbation. - Bed requested for Telemetry/MedSurg (Inpatient). - Status is Inpatient Admission. bp - Condition is Stable. - Problem is new. - Symptoms have improved. UTI on Admission? No Critical care time excluding procedures: 06:12 Critical care time: Bedside Care: 10 minutes, Consultation: 10 minutes, Family gs Intervention: 10 minutes. Total time: 30 minutes Signatures: Dispatcher [employer] EDMS Masha Berry RN RN Loni Bowser RN LEIDA Emily Ham RN RN bb Pena, Laura, RN RN lp1 Patrick Wong MD MD Rodolfo Lechuga RN RN Danette Webster Corrections: (The following items were deleted from the chart) 06:20 06:20 Hospitalization Ordered by Carlos Gaona MD for Inpatient Admission. Preliminary gs diagnosis is Acute respiratory failure; Acute respiratory failure with hypercapnia; Chronic obstructive pulmonary disease with (acute) exacerbation. Bed requested for Telemetry/MedSurg (Inpatient). Status is Inpatient Admission. Condition is Stable. Problem is new. Symptoms have improved. UTI on Admission? No. gs 06:25 06:20 06/22/2019 06:20 Hospitalization Ordered by Carlos Gaona MD for Inpatient Admission. Preliminary diagnosis is Acute respiratory failure; Acute respiratory failure with hypercapnia; Chronic obstructive pulmonary disease with (acute) exacerbation. Bed requested for Intensive Care Unit. Status is Inpatient Admission. Condition is Stable. Problem is new. Symptoms have improved. UTI on Admission? No. gs 08:13 06:25 06/22/2019 06:20 Hospitalization Ordered by Carlos Gaona MD for Inpatient mw Admission. Preliminary diagnosis is Acute respiratory failure; Acute respiratory failure with hypercapnia; Chronic obstructive pulmonary disease with (acute) exacerbation. Bed requested for Intensive Care Unit. Status is Inpatient Admission. Condition is Stable. Problem is new. Symptoms have improved. UTI on Admission? No. mw 08:22 08:13 06/22/2019 06:20 Hospitalization Ordered by Carlos Gaona MD for Inpatient eb Admission. Preliminary diagnosis is Acute respiratory failure; Acute respiratory failure with hypercapnia; Chronic obstructive pulmonary disease with (acute) exacerbation. Bed requested for Telemetry/MedSurg (Inpatient). Status is Inpatient Admission. Condition is Stable. Problem is new. Symptoms have improved. UTI on Admission? No. mw 08:34 08:22 06/22/2019 06:20 Hospitalization Ordered by Carlos Gaona MD for Inpatient bp Admission. Preliminary diagnosis is Acute respiratory failure; Acute respiratory failure with hypercapnia; Chronic obstructive pulmonary disease with (acute) exacerbation. Bed requested for Telemetry/MedSurg (Inpatient). Status is Inpatient Admission. Condition is Stable. Problem is new. Symptoms have improved. UTI on Admission? No. eb
[2019-06-22 06:33] LABS: Absolute Lymphocytes (CBC) 2.5 K/uL (0.7-4.9); Basophils % 0.5 % (0-1.3); Hematocrit 40.6 % (36.0-45.0); Lymphocytes % 19.8 % (15.3-44.8); MPV 8.2 fL (7.6-11.3)
[2019-06-22 06:50] LABS: BUN Blood Urea Nitrogen 7 mg/dL (7-18); Bicarbonate 30 mmol/L (21-32); Glucose Level 118 mg/dL (74-106); Potassium 3.6 mmol/L (3.5-5.1); Sodium Level 142 mmol/L (136-145)
[2019-06-22 06:51] LABS: Troponin (Emerg Dept Use Only) < 0.02 ng/mL (0.0-0.045)
[2019-06-22] MEDS ORDERED: ALPRAZOLAM 0.25 MG TABLET PO PRN (07:45)
[2019-06-22] MEDS ORDERED: ACETAMINOPHEN 500 MG TAB PO PRN (07:45)
[2019-06-22] MEDS ORDERED: ONDANSETRON 4 MG/2 ML VIAL IV PRN (07:45)
--- NOTE | 2019-06-22 07:56 | P.HP ---
Certification for Inpatient Patient admitted to: Inpatient With expected LOS: >2 Midnights Patient will require the following post-hospital care: None Practitioner: I am a practitioner with admitting privileges, knowledge of patient current condition, hospital course, and medical plan of care. Services: Services provided to patient in accordance with Admission requirements found in Title 42 Section 412.3 of the Code of Federal Regulations Patient History Date of Service: 06/22/19 Reason for admission: Respiratory distress History of Present Illness: Patient is a 53-year-old female came to the hospital with difficulty breathing. Patient been having difficulty for the last 2 weeks. Patient has a history of COPD because of tobacco use. She started smoking at the age of 10 in 1974. She quit in 2015. She has a 60 pack year smoking history. She has been consistently using her inhaler over the last 2 weeks. Respiratory distress progressed until she had a come into the ER today. She was placed on BiPAP. Clinically she appears to be doing better. She has been given IV steroids and neb treatments in the emergency room. Will slowly wean her off the BiPAP. She should be able to go to the regular medical floor. Will also get pulmonary consultation. Allergies codeine [Codeine] Adverse Reaction (Mild, Verified 12/20/18 19:55) Hives/Rash Home Medications: Albuterol Neb [Proventil 0.083% Neb Soln] 3 ml NEB Q6HP PRN 05/18/19 Albuterol Sulfate [Proair Hfa] 1 inh IH Q4HP PRN 05/18/19 Ascorbic Acid [Vitamin C*] 500 mg PO DAILY 05/18/19 Aspirin [Aspirin EC 81 MG] 81 mg PO DAILY 05/18/19 Calcium Carbonate 500 mg PO DAILY 05/18/19 Ipratropium Neb [Atrovent*] 2.5 ml NEB Q8HP 05/18/19 Omeprazole Magnesium [Prilosec Otc] 20 mg PO DAILY 05/18/19 predniSONE [Deltasone] 10 mg PO BID #20 tab 05/19/19 - Past Medical/Surgical History Diabetic: No -: COPD -: Alcohol abuse -: Former tobacco abuse -: Tubal ligation -: left ankle fracture Psychosocial/ Personal History: She is , she has 2 children. She does not work. - Family History Mother Medical History: Other (see notes) Notes: No health problems at this time. Father Medical History: Cancer Notes: bone cancer - Social History Smoking Status: Former smoker Alcohol use: Yes CD- Drugs: No Caffeine use: Yes Review of Systems 10-point ROS is otherwise unremarkable Physical Examination - Vital Signs Temperature: 98 F Blood Pressure: 120/70 Pulse: 111 Respirations: 24 Pulse Ox (%): 98 - Physical Exam General: Alert, In no apparent distress, Oriented x3 HEENT: Atraumatic, Normocephalic, PERRLA, Mucous membr. moist/pink Neck: Supple, 2+ carotid pulse no bruit, JVD not distended, No Thyromegaly, No LAD Respiratory: Diminished, Expiratory wheezes Cardiovascular: No edema, Normal pulses, Regular rate/rhythm, Normal S1 S2, No murmurs Gastrointestinal: Normal bowel sounds, Soft and benign, Non-distended, No masses , No rebound, No guarding Musculoskeletal: No clubbing, No swelling Integumentary: No rashes Neurological: Normal gait, Normal speech, Normal strength at 5/5 x4 extr, Normal tone, Sensation intact, Cranial nerves 3-12 intact Lymphatics: No axilla or inguinal lymphadenopathy - Studies Laboratory Data (last 24 hrs) 06/22/19 06:05: WBC 12.7 H, Hgb 13.6, Hct 40.6, Plt Count 414 H 06/22/19 06:05: Sodium 142, Potassium 3.6, BUN 7, Creatinine 0.64, Glucose 118 H Assessment & Plan - Problems (Diagnosis) (1) COPD exacerbation Onset Date: 10/04/18 Current Visit: No Status: Acute (2) SOB (shortness of breath) Onset Date: 10/14/16 Current Visit: No Status: Acute (3) Former smoker Onset Date: 01/31/17 Current Visit: No Status: Chronic (4) Acute respiratory failure Onset Date: 05/22/18 Current Visit: No Status: Resolved Qualifiers: Respiratory failure complication: hypoxia Qualified Code(s): J96.01 - Acute respiratory failure with hypoxia - Plan Plan: 1. BiPAP support; slowly wean off over the next 24 hrs 2. IV steroids 3. Neb treatments every 6 hr 4. IV antibiotics 5. Pulmonary consultation 6. GI and DVT prophylaxis Discharge Plan: Home Plan to discharge in: Greater than 2 days - Advance Directives Does patient have a Living Will: No Does patient have a Durable POA for Healthcare: No - Code Status/Comfort Care Code Status Assessed: Yes Code Status: Full Code Critical Care: Yes Time Spent Managing PTS Care (In Minutes): 45
--- NOTE | 2019-06-22 08:24 | RAD REPORT ---
EXAM DESCRIPTION: RAD - Chest Single View - 06/22/2019 5:43 am CLINICAL HISTORY: COPD Chest pain. COMPARISON: Chest Single View dated 05/18/2019; Chest Single View dated 04/30/2019; Chest Single View d ated 02/09/2019; Chest Single View dated 12/20/2018 FINDINGS: Portable technique limits examination quality. Mild interstitial pulmonary edema is present. The heart is normal in size. No displaced fractures. IMPRESSION: Mild interstitial pulmonary edema suspected.
[2019-06-22] MEDS: ALBUTEROL 2.5 MG/3 ML NEB SOL NEB SCH ×3 (09:07→20:20)
[2019-06-22] MEDS: IPRATROPIUM BROM 0.5MG/2.5ML NEB SCH ×3 (09:07→20:20)
[2019-06-22 09:15] VITALS: BMI 29.9
[2019-06-22] MEDS: METHYLPREDNISOLONE 125 MG INJ IV SCH ×4 (09:47→23:40)
[2019-06-22] MEDS: ENOXAPARIN 40 MG/0.4 ML SQ SCH (09:47)
[2019-06-22] MEDS: CEFTRIAXONE/SWI 1gm 1 GM/10 ML SYR IV SCH (09:47)
[2019-06-22] MEDS: NA CHLORIDE 0.9% 1,000 ML IV SCH ×2 (09:50→23:46)
[2019-06-22 10:07] LABS: Urine Appearance CLOUDY; Urine Bilirubin NEGATIVE (NEG); Urine Blood NEGATIVE (NEG); Urine Color YELLOW; Urine Glucose NEGATIVE (NEG); Urine Protein TRACE (NEG); Urine Specific Gravity 1.015 (1.005-1.030); Urine Urobilinogen 0.2 mg/dL (0.2-1.0)
[2019-06-22 10:13] LABS: Urine Microscopic Reflex ORDER UMIC
[2019-06-22 10:40] LABS: Urine Bacteria >50 /HPF (<20); Urine RBC <5 /HPF (NONE SEEN)
[2019-06-22 10:41] LABS: Urine Culture Reflex Order NOT NEEDED; Urine Mucus HEAVY /HPF (NONE SEEN)
[2019-06-22] MEDS ORDERED: POTASSIUM CL SA 10 MEQ TAB PO ONE (19:11)
[2019-06-23] MEDS: IPRATROPIUM BROM 0.5MG/2.5ML NEB SCH ×2 (02:05→07:50)
[2019-06-23] MEDS: ALBUTEROL 2.5 MG/3 ML NEB SOL NEB SCH ×2 (02:05→07:50)
[2019-06-23 05:21] LABS: Absolute Lymphocytes (CBC) 1.1 K/uL (0.7-4.9); Basophils % 0.2 % (0-1.3); Hematocrit 34.1 % (36.0-45.0); Lymphocytes % 8.6 % (15.3-44.8); MPV 9.1 fL (7.6-11.3); RBC Red Blood Cell Count 3.48 M/uL (3.86-4.86)
[2019-06-23] MEDS: METHYLPREDNISOLONE 125 MG INJ IV SCH (05:28)
[2019-06-23 05:46] LABS: ALT/SGPT 24 U/L (12-78); AST/SGOT 16 U/L (15-37); Albumin 3.7 g/dL (3.4-5.0); Alkaline Phosphatase 76 U/L (45-117); BUN Blood Urea Nitrogen 7 mg/dL (7-18); Bicarbonate 25 mmol/L (21-32); Bilirubin Total 0.3 mg/dL (0.2-1.0); Glucose Level 187 mg/dL (74-106); Magnesium 2.2 mg/dL (1.8-2.4); Phosphorus 3.2 mg/dL (2.5-4.9); Protein, Total 7.1 g/dL (6.4-8.2); Sodium Level 136 mmol/L (136-145)
[2019-06-23] MEDS: ENOXAPARIN 40 MG/0.4 ML SQ SCH (07:44)
[2019-06-23] MEDS: CEFTRIAXONE/SWI 1gm 1 GM/10 ML SYR IV SCH (07:44)
[2019-06-23 08:36] LABS: Blood Morphology Comment NOT SEEN (NOT SEEN); Platelet Estimate ADEQ; Urine White Blood Cell Casts OK
[2019-06-23] MEDS ORDERED: THEOPHYLLINE SR 100 MG TAB PO SCH (09:54)
--- NOTE | 2019-06-23 09:55 | P.CNS ---
Date of Consult: 06/23/19 Chief Complaint: Respiratory distress History of Present Illness: Patient is 53 years of age with a history of COPD recurrent hospital admission has become worse over the past month has been having progressive cough compliant with her bronchodilators became worse over the past week admitted admitted with respiratory distress doing better Allergies codeine [Codeine] Adverse Reaction (Mild, Verified 12/20/18 19:55) Hives/Rash Home Medications: Albuterol Neb [Proventil 0.083% Neb Soln] 3 ml NEB Q6HP PRN 05/18/19 Albuterol Sulfate [Proair Hfa] 1 inh IH Q4HP PRN 05/18/19 Ascorbic Acid [Vitamin C*] 500 mg PO DAILY 05/18/19 Aspirin [Aspirin EC 81 MG] 81 mg PO DAILY 05/18/19 Calcium Carbonate 500 mg PO DAILY 05/18/19 Ipratropium Neb [Atrovent*] 2.5 ml NEB Q8HP 05/18/19 Omeprazole Magnesium [Prilosec Otc] 20 mg PO DAILY 05/18/19 Theophylline Anhydrous [Carter-24] 200 mg PO DAILY #30 cap.er.24h 06/23/19 predniSONE [Deltasone*] 10 mg PO DAILY 90 Days #90 tab 06/23/19 - Past Medical/Surgical History Diabetic: No -: COPD -: Alcohol abuse -: Former tobacco abuse -: Tubal ligation -: left ankle fracture Psychosocial/ Personal History: She is , she has 2 children. She does not work. - Family History Mother Medical History: Other (see notes) Notes: No health problems at this time. Father Medical History: Cancer Notes: bone cancer - Social History Smoking Status: Former smoker Alcohol use: Yes CD- Drugs: No Caffeine use: Yes Place of Residence: Home Review of Systems 10-point ROS is otherwise unremarkable Physical Examination Temp Pulse Resp BP Pulse Ox 98.5 F 79 12 96/50 L 96 06/23/19 07:52 06/23/19 07:52 06/23/19 07:52 06/23/19 07:52 06/23/19 07:52 General: Alert, In no apparent distress Respiratory: Expiratory wheezes Cardiovascular: No edema, Regular rate/rhythm Gastrointestinal: Normal bowel sounds, Soft and benign - Problems (1) COPD exacerbation Onset Date: 10/04/18 Current Visit: No Status: Acute Plan: Patient is 53 years of age admitted with recurrent COPD exacerbation he does take bronchodilators at home patient needs to take prednisone on a daily basis 10 mg and additional 10 mg if she gets worse continue with the nebulized albuterol ipratropium and a long-acting bronchodilator that became for a sample room-air pulse ox possible discharge Dc antibiotics chest x-ray clear mildly hypoxic hypercapnic I also recommend low-dose theophylline chest x-ray shows some interstitial changes
--- NOTE | 2019-06-23 11:18 | P.DS ---
Admission Date: 06/22/19 Discharge Date: 06/23/19 Disposition: ROUTINE DISCHARGE Discharge Condition: FAIR Reason for Admission: Respiratory distress Consultations: Pulmonology Brief History of Present Illness: Patient is a 53-year-old female came to the hospital with difficulty breathing. Patient been having difficulty for the last 2 weeks. Patient has a history of COPD because of tobacco use. She started smoking at the age of 10 in 1974. She quit in 2015. She has a 60 pack year smoking history. She has been consistently using her inhaler over the last 2 weeks. Respiratory distress progressed until she had a come into the ER today. She was placed on BiPAP. Clinically she appears to be doing better. She has been given IV steroids and neb treatments in the emergency room. Will slowly wean her off the BiPAP. She should be able to go to the regular medical floor. Will also get pulmonary consultation. Hospital Course: Patient was admitted to the floor. She was given nebulizer treatments, IV steroids and antibiotics. She was continued on BiPAP as needed. She was weaned off of BiPAP to oxygen. She was eventually weaned off of the oxygen as well. Pulmonology was consulted. Once her symptoms improved, She was converted from IV steroids to oral steroids and her antibiotics were discontinued. She was also started on Theophyline. Prior to discharge, her respiratory status was back to baseline, she was off oxygen, satting 93% and above on room air. She was ambulating without any concerns. Her diagnoses and treatment plan was explained to her, all questions were answered and she verbalized understanding. She was then discharged home in a safe and stable manner with instructions to follow up with pulmonology as an outpatient. Vital Signs/Physical Exam: Temp Pulse Resp BP Pulse Ox 98.5 F 79 12 96/50 L 96 06/23/19 07:52 06/23/19 07:52 06/23/19 07:52 06/23/19 07:52 06/23/19 07:52 General: Alert, In no apparent distress, Oriented x3 HEENT: Atraumatic, PERRLA, EOMI Neck: Supple, JVD not distended Respiratory: Clear to auscultation bilaterally, Normal air movement Cardiovascular: Regular rate/rhythm, Normal S1 S2 Gastrointestinal: Normal bowel sounds, No tenderness Musculoskeletal: No tenderness Integumentary: No rashes Neurological: Normal speech, Normal tone, Normal affect Lymphatics: No axilla or inguinal lymphadenopathy Laboratory Data at Discharge: WBC 13.4 K/uL (4.3-10.9) H 06/23/19 04:36 Hgb 11.5 g/dL (12.0-15.0) L 06/23/19 04:36 Hct 34.1 % (36.0-45.0) L D 06/23/19 04:36 Plt Count 350 K/uL (152-406) 06/23/19 04:36 Sodium 136 mmol/L (136-145) 06/23/19 04:36 Potassium 4.0 mmol/L (3.5-5.1) 06/23/19 04:36 BUN 7 mg/dL (7-18) 06/23/19 04:36 Creatinine 0.64 mg/dL (0.55-1.3) 06/23/19 04:36 Glucose 187 mg/dL (74-106) H 06/23/19 04:36 Phosphorus 3.2 mg/dL (2.5-4.9) 06/23/19 04:36 Magnesium 2.2 mg/dL (1.8-2.4) 06/23/19 04:36 Total Bilirubin 0.3 mg/dL (0.2-1.0) 06/23/19 04:36 AST 16 U/L (15-37) 06/23/19 04:36 ALT 24 U/L (12-78) 06/23/19 04:36 Alkaline Phosphatase 76 U/L (45-117) 06/23/19 04:36 Home Medications: Albuterol Neb [Proventil 0.083% Neb Soln] 3 ml NEB Q6HP PRN 05/18/19 Albuterol Sulfate [Proair Hfa] 1 inh IH Q4HP PRN 05/18/19 Ascorbic Acid [Vitamin C*] 500 mg PO DAILY 05/18/19 Aspirin [Aspirin EC 81 MG] 81 mg PO DAILY 05/18/19 Calcium Carbonate 500 mg PO DAILY 05/18/19 Ipratropium Neb [Atrovent*] 2.5 ml NEB Q8HP 05/18/19 Omeprazole Magnesium [Prilosec Otc] 20 mg PO DAILY 05/18/19 Theophylline Anhydrous [Carter-24] 200 mg PO DAILY #30 cap.er.24h 06/23/19 predniSONE [Deltasone*] 10 mg PO DAILY 90 Days #90 tab 06/23/19 New Medications: predniSONE [Deltasone*] 10 mg PO DAILY 90 Days #90 tab Theophylline Anhydrous [Carter-24] 200 mg PO DAILY #30 cap.er.24h Patient Discharge Instructions: Please follow up with Dr. Brand in 2 weeks. new medication: Theophyline, prednisone. Return to the Emergency room for worsening symptoms Diet: AHA Activity: Ad herbert Followup: Christos Brand MD [ACTIVE - CAN ADMIT] - Time spent managing pt's care (in minutes): 55
[2019-06-23 11:49] VITALS: BP 107/53; TEMP 97.6
[2019-06-23 11:57] VITALS: O2SAT 96
[2019-06-23] MEDS ORDERED: predniSONE 20 MG TAB PO SCH (21:00)
--- NOTE | 2019-06-24 08:13 | EKG ---
Test Date: 2019-06-22 Test Time: 06:17:42 Paste Up Worker: JACQUI MEASUREMENT RESULTS: Intervals: Rate: 115 MD: 132 QRSD: 84 QT: 336 QTc: 464 [place]: P: 81 MD: 132 QRS: 82 T: 56 INTERPRETIVE STATEMENTS: Sinus tachycardia Possible Left atrial enlargement Borderline ECG Compared to ECG 05/18/2019 11:01:49 Sinus rhythm no longer present Electronically Signed On 06-24-19 08:07:45 CDT by Danie Davis
== END 2019-06-23 12:27 | disposition home or self-care (01) | DRG 190 ==
LOC: ER 05:25 → ERHOLD 07:45 → 3RD-ICU 08:07 → 4TH 08:23
PROVIDERS: ADMIT Hospitalist; ATTEND Hospitalist
PROC: 5A09357 Assistance with Respiratory Ventilation, Less than 24 Consecutive Hours, Continuous Positive Airway Pressure (ICD-10-PCS; principal; 2019-06-22)
DX: J44.1 Chronic obstructive pulmonary disease with (acute) exacerbation (principal); J96.01 Acute respiratory failure with hypoxia; Z87.891 Personal history of nicotine dependence
CPT/HCPCS: 36415; 71045; 80048; 80053; 81003; 81015; 82805; 83735; 84100; 84484; 85025; 87040; 93005; 94640; 94660; 96374; 99285; J0696; J1650; J2930; J7030

== ENCOUNTER 2019-07-06 06:30 | Emergency (ER) | payer SELFPAY ==
[2019-07-06] MEDS ORDERED: ATROPINE SULFATE 1 MG/ML INJ IV ONE (06:31)
[2019-07-06] MEDS ORDERED: EPINEPHRINE/PF 1 MG/ML AMP IV ONE (06:31)
[2019-07-06] MEDS ORDERED: EPINEPHrine 1 MG/10 ML SYR IV ONE (06:31)
[2019-07-06] MEDS ORDERED: NA CHLORIDE 0.9% 1,000 ML IV ONE (06:31)
--- NOTE | 2019-07-06 07:06 | ER ---
Nurse's Notes [facility] Name: Elizabeth Ny Age: 53 yrs Sex: Female : 1965 Arrival Date: 07/06/2019 Time: 06:50 Bed 3 Private MD: Diagnosis: Respiratory arrest;Respiratory failure, unspecified;Cardiac arrest Presentation: 07/06 06:24 Presenting complaint: EMS states: that pt called daughter at 0436 to tell her she was fc having SOB. daughter called [address] to pts home. EMS arrived on scene and pt was on floor, unresponsive and in asystole. CPR started at 0541. Care prior to arrival: Oral intubation, ETT 7.5 CPR manually performed by EMS and is still in progress Cervical collar in place. Medication(s) given: NS 600 ml, Epi x 4 IV initiated. I/O to right humerous Glucose check: 318 Oxygen administered. ETT. Compressions began prior to arrival. 06:24 Method Of Arrival: EMS: [facility] fc 06:24 Acuity: CAROLYN 1 fc 06:24 Transition of care: patient was not received from another setting of care. Onset of fc symptoms was July 06, 2019 at 04:36. Risk Assessment: Do you want to hurt yourself or someone else? Unable to obtain. Initial Sepsis Screen:. 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 - Social history:: Smoking status: unknown. - Family history:: not pertinent. - Ebola Screening: : Unable to complete screening because patient is unresponsive. Screenin:24 Abuse screen: Denies threats or abuse. Nutritional screening: No deficits noted. fc Tuberculosis screening: No symptoms or risk factors identified. 06:30 Fall Risk Total Culver Fall Scale indicates High Risk Score (45 or more points). Side lp1 Rails Up X 2. Assessment: 06:24 General: Behavior is unresponsive. Neuro: Level of Consciousness is unresponsive. jb4 Cardiovascular: Rhythm is asystole. Respiratory: Airway via oral intubation C-Collar in place during CPR. Being manually ventilated. RT at bedside. respirations via ambu bag. GI: NGT in place. Derm: Skin is intact, Skin is dry, Skin is dusky, pale, Face noted to be cyanotic. Skin temperature is cold. 06:24 CPR assessment: unresponsive, intubated, Ambu ventilation, cyanotic, pale. jb4 06:46 Reassessment: Pt pronounced \T\ [address] Cobb. jb4 06:50 Reassessment: Assisted provider with notifying family of pt's . jb4 07:11 Reassessment: [employer] [facility] contacted, Spinning Machine Tender Nona Goodrich. 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 jb4 07:58 Reassessment: Family at bedside, to be picked up by [facility]. 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 06:25 Patient has correct armband on for positive identification. Side rails up X2. Cardiac lp1 monitor on. Pulse ox on. NIBP on. 06:30 Inserted saline lock: 18 gauge in right wrist, using aseptic technique. ,using aseptic fc technique. by Montez CASAREZ. 06:32 Inserted saline lock: 22 gauge in left forearm, using aseptic technique. ,using aseptic fc technique. per [employer]. 06:35 Assisted provider with central line placement. Set up central line tray. Triple lumen fc line placed in right femoral. Line placed by Jeyson Cobb MD Placement verified by blood return, Dressed with Tegaderm. 06:50 Patient arrived in ED. fc 06:52 Jeyson Cobb MD is Attending Physician. helga 06:57 Triage completed. fc 07:01 Jeyson Cobb MD is Pronouncing Provider. helga 07:10 [address]is [address] to call the huller operator. bd 07:42 Ramsey Amaya, RN is Primary Nurse. jb4 Administered Medications: 06:31 Drug: EPINEPHrine 0.1mg/mL 1:10,000 1 mg {Note: per Montez CASAREZ.} Route: IVP; Site: right fc wrist; 07:00 Follow up: Response: No change in condition lp1 06:32 Drug: Sodium Bicarbonate 1 amp {Note: per Montez RN.} Route: IVP; Site: right wrist; 07:00 Follow up: Response: No change in condition lp1 06:34 Drug: EPINEPHrine 0.1mg/mL 1:10,000 1 mg {Note: per Montez RN.} Route: IVP; Site: right fc wrist; 07:00 Follow up: Response: No change in condition lp1 06:35 Drug: Sodium Bicarbonate 1 amp {Note: per Lexus RN.} Route: IVP; Site: right wrist; 07:00 Follow up: Response: No change in condition lp1 06:37 Drug: EPINEPHrine (PF) 1mg/mL 1:1,000 1 mg {Note: per Lexus RN.} Route: IV; Rate: fc bolus; Site: right wrist; 06:40 Follow up: Response: No change in condition; IV Status: Completed infusion lp1 06:38 Drug: NS 0.9% 1000 ml {Note: per Masha Casarez.} Route: IV; Rate: 1 bolus; Site: left fc forearm; 07:00 Follow up: IV Status: IV converted to saline lock; IV Intake: 400ml lp1 06:39 Drug: EPINEPHrine 0.1mg/mL 1:10,000 1 mg {Note: per Masha CASAREZ.} Route: IVP; Site: left fc forearm; 07:00 Follow up: Response: No change in condition lp1 06:39 Drug: Atropine 1 mg {Note: per Masha CASAREZ.} Route: IVP; Site: left forearm; 07:00 Follow up: Response: No change in condition lp1 06:43 Drug: EPINEPHrine 0.1mg/mL 1:10,000 1 mg {Note: per Lexus HOFFMANN} Route: IVP; Site: right fc wrist; 07:00 Follow up: Response: No change in condition lp1 06:45 Drug: EPINEPHrine 0.1mg/mL 1:10,000 1 mg {Note: per Dr Cobb.} Route: IVP; Site: fc right femoral; 07:00 Follow up: Response: No change in condition lp1 Point of Care Testing: Blood Glucose: 06:45 Blood Glucose: 445 mg/dL; fc Ranges: Intake: 07:00 IV: 400ml; Total: 400ml. lp1 Outcome: 06:46 Outcome Patient fc 06:46 Patient : Time of 06:46 Pronounced by Jeyson lewis 06:46 Condition: 08:54 Patient left the ED. Signatures: Patricia Guzman Corey, MD MD cha Chretien, Felicia RN RN Lexus Main RN RN 1 Edna Manuel RN RN Jonna Medel RN RN Ramsey Amaya RN RN jb4 Corrections: (The following items were deleted from the chart) 06:59 06:45 Blood Glucose: Blood Glucose Mcuenkk=475 mg/dL. [facility] 07:00 06:45 Blood Glucose: Blood Glucose Zylurch=441 mg/dL. [facility] 07:00 06:45 Blood Glucose: Blood Glucose Bnyizdd=868 mg/dL. [facility] 07:00 06:45 Blood Glucose: Blood Glucose Jwmwwza=952 mg/dL. [facility] 07:00 06:45 Blood Glucose: Blood Glucose Veelltw=239 mg/dL. [facility] 07:54 05:41 General: Behavior is unresponsive. [place] [id number] 07:54 05:41 Cardiovascular: Rhythm is asystole [place] [address] 07:54 05:41 Neuro: Level of Consciousness is unresponsive, [place] [address] 07:54 05:41 Respiratory: Airway via oral intubation C-Collar in place during CPR. Being jb4 manually ventilated. RT at bedside. respirations via ambu bag. [facility] : 05:41 GI: NGT in place, [place] [address] 07:54 05:41 Derm: Skin is intact, Skin is dry, Skin is dusky, pale, Face noted to be jb4 cyanotic. Skin temperature is cold jb 07:55 06:50 Reassessment: Provider notified family of pt's . 4 jb4
--- NOTE | 2019-07-06 07:06 | EDPHYS ---
Physician Documentation [facility] Name: Elizabeth Ny Age: 53 yrs Sex: Female : 1965 Arrival Date: 07/06/2019 Time: 06:50 Bed 3 Private MD: ED Physician Jeyson Cobb HPI: 07/06 06:52 This 53 yrs old Female presents to ER via Unassigned with complaints of CPR. helga 06:52 Preceding the arrest, the patient collapsed. The arrest occurred at home. Pre-hospital helga course: The arrest was not witnessed by others. Bystanders at the scene did not perform CPR. The patient has not experienced similar symptoms in the past. 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 - Social history:: Smoking status: unknown. - Family history:: not pertinent. - Ebola Screening: : Unable to complete screening because patient is unresponsive. ROS: 06:52 Cardiovascular: Negative for pulse. helga 06:52 Respiratory: Negative for respirations. 06:52 Skin: Positive for cyanosis, chest up. Exam: 06:52 Constitutional: This is a well developed, well nourished patient who is awake, alert, helga and in no acute distress. Head/Face: Normocephalic, atraumatic. Eyes: Pupils equal round and reactive to light, extra-ocular motions intact. Lids and lashes normal. Conjunctiva and sclera are non-icteric and not injected. Cornea within normal limits. Periorbital areas with no swelling, redness, or edema. ENT: Nares patent. No nasal discharge, no septal abnormalities noted. Tympanic membranes are normal and external auditory canals are clear. Oropharynx with no redness, swelling, or masses, exudates, or evidence of obstruction, uvula midline. Mucous membranes moist. 06:52 Eyes: Pupils: are fixed and dilated. 06:52 Cardiovascular: Rate: actual rate is 0 bpm, Rhythm: asystole, Pulses: not palpable, JVD: is not appreciated. 06:52 Respiratory: Respiratory rate: 0 Vital Signs: 06:45 Temp 95.5(R); jb4 MDM: 06:52 Patient medically screened. [facility] 07:00 Data reviewed: vital signs, nurses notes. [facility] Administered Medications: 06:31 Drug: EPINEPHrine 0.1mg/mL 1:10,000 1 mg {Note: per Montez RN.} Route: IVP; Site: right fc wrist; 07:00 Follow up: Response: No change in condition lp1 06:32 Drug: Sodium Bicarbonate 1 amp {Note: per Montez RN.} Route: IVP; Site: right wrist; 07:00 Follow up: Response: No change in condition lp1 06:34 Drug: EPINEPHrine 0.1mg/mL 1:10,000 1 mg {Note: per Montez RN.} Route: IVP; Site: right fc wrist; 07:00 Follow up: Response: No change in condition lp1 06:35 Drug: Sodium Bicarbonate 1 amp {Note: per Lexus RN.} Route: IVP; Site: right wrist; 07:00 Follow up: Response: No change in condition lp1 06:37 Drug: EPINEPHrine (PF) 1mg/mL 1:1,000 1 mg {Note: per Lexus CASAREZ.} Route: IV; Rate: fc bolus; Site: right wrist; 06:40 Follow up: Response: No change in condition; IV Status: Completed infusion lp1 06:38 Drug: NS 0.9% 1000 ml {Note: per Masha Rn.} Route: IV; Rate: 1 bolus; Site: left fc forearm; 07:00 Follow up: IV Status: IV converted to saline lock; IV Intake: 400ml lp1 06:39 Drug: EPINEPHrine 0.1mg/mL 1:10,000 1 mg {Note: per Masha CASAREZ.} Route: IVP; Site: left fc forearm; 07:00 Follow up: Response: No change in condition lp1 06:39 Drug: Atropine 1 mg {Note: per Masha CASAREZ.} Route: IVP; Site: left forearm; 07:00 Follow up: Response: No change in condition lp1 06:43 Drug: EPINEPHrine 0.1mg/mL 1:10,000 1 mg {Note: per Lexus CASAREZ.} Route: IVP; Site: right fc wrist; 07:00 Follow up: Response: No change in condition lp1 06:45 Drug: EPINEPHrine 0.1mg/mL 1:10,000 1 mg {Note: per Dr Cobb.} Route: IVP; Site: fc right femoral; 07:00 Follow up: Response: No change in condition lp1 Point of Care Testing: Blood Glucose: 06:45 Blood Glucose: 445 mg/dL; Ranges: Critical Glucose Levels:Adult <50 mg/dl or >400 mg/dl <40 mg/dl or >180 mg/dl Disposition: Patient pronounced on 07/06/19 06:46 by Jeyson Cobb. Impression: Respiratory arrest, Respiratory failure, unspecified, Cardiac arrest. - Released to Home. Signatures: Jeyson Cobb MD MD cha Chretien, Felicia RN RN Jnona Medel RN RN Lexus Main RN [facility] Corrections: (The following items were deleted from the chart) 08:54 07:04 07/06/2019 07:04 Patient pronounced on 07/06/2019 at 06:46 by Jeyson Cobb. Impression: Respiratory arrest; Respiratory failure, unspecified; Cardiac arrest. Released to Home. helga
[2019-07-06 09:23] VITALS: TEMP 95.5
== END 2019-07-06 08:54 | disposition expired ==
LOC: ER 06:30
PROC: 06HM33Z Insertion of Infusion Device into Right Femoral Vein, Percutaneous Approach (ICD-10-PCS; principal; 2019-07-06)
DX: I46.9 Cardiac arrest, cause unspecified (principal); J44.9 Chronic obstructive pulmonary disease, unspecified; Z79.01 Long term (current) use of anticoagulants; Z79.82 Long term (current) use of aspirin; Z88.5 Allergy status to narcotic agent
CPT/HCPCS: 82962; 92950; 99285; J0171; J0461; J7030